=== PATIENT | female | born 1950 | race Caucasian/White ===

== ENCOUNTER 2019-05-02 10:00 | Outpatient (RCR) | payer MEDICARE, SELFPAY | END 2019-05-14 00:01 | LOC: GPO 10:00 | PROVIDERS: Family Provider Internal Medicine; Visit Provider Family Medicine | DX: M79.642 Pain in left hand (principal); M79.641 Pain in right hand; M79.605 Pain in left leg; M79.604 Pain in right leg; M54.9 Dorsalgia, unspecified | CPT/HCPCS: 97034 ×2; 97110 ×5; 97167; 97530 ×2; 97535; L3908 ==

== ENCOUNTER 2019-05-15 06:00 | Outpatient (RCR) | payer MEDICARE, SELFPAY | END 2019-06-14 23:59 | disposition home or self-care (01) | LOC: GPO 06:00 | PROVIDERS: Family Provider Internal Medicine; PCP Internal Medicine; Visit Provider Family Medicine | DX: M54.5 Low back pain (principal); M79.642 Pain in left hand; M79.641 Pain in right hand; M79.605 Pain in left leg; M79.604 Pain in right leg | CPT/HCPCS: 97032; 97034; 97110; 97124; 97140; 97162; 97530; 97535 ==

== ENCOUNTER 2019-05-20 12:38 | Outpatient (CLI) | payer MEDICARE, SELFPAY ==
--- NOTE | 2019-05-20 13:03 | XR_ITS ---
WS: [id number] Right shoulder, 3 views, 05/20/2019 Clinical Data: RIGHT SHOULDER PAIN Comparison: None. Findings: No fractures or dislocations are seen. The AC joint shows moderate osteoarthritis. The adjacent right clavicle, right scapula and ribs are normal. The soft tissues are unremarkable. XR/XR shoulder RT min 2V* [id number] Impression: Negative right shoulder.
== END 2019-05-20 12:39 | disposition home or self-care (01) ==
PROVIDERS: Family Provider Internal Medicine; PCP Internal Medicine; Referring Provider Family Medicine; Visit Provider Family Medicine
DX: M25.511 Pain in right shoulder (principal)
CPT/HCPCS: 73030

== ENCOUNTER → 2019-06-04 14:10 | Outpatient (BNVA) | payer MEDICARE, SELFPAY | PROVIDERS: Family Provider Internal Medicine; PCP Family Medicine; Referring Provider Family Medicine; Visit Provider Psychiatry & Neurology Neurology | DX: G56.03 Carpal tunnel syndrome, bilateral upper limbs (principal) | CPT/HCPCS: 95911 ==

== ENCOUNTER 2019-06-15 06:00 | Outpatient (RCR) | payer MEDICARE, SELFPAY | END 2019-07-13 23:59 | disposition home or self-care (01) | LOC: GPO 06:00 | PROVIDERS: Family Provider Internal Medicine; PCP Family Medicine; Referring Provider Family Medicine; Visit Provider Family Medicine | DX: M54.5 Low back pain (principal); M79.642 Pain in left hand; M79.641 Pain in right hand; M79.605 Pain in left leg; M79.604 Pain in right leg | CPT/HCPCS: 97032; 97034; 97110; 97124; 97140; 97164; 97530; 97535 ==

== ENCOUNTER 2019-07-01 12:41 | Outpatient (CLI) | payer MEDICARE, SELFPAY ==
--- NOTE | 2019-07-01 12:50 | MR_ITS ---
WS: [id number] MRI CERVICAL SPINE NONCONTRAST TECHNIQUE: Sagittal T1, T2 and STIR imaging. Axial T2, gradient, and fiesta imaging. CLINICAL INFORMATION: CHRONIC NECK PAIN COMPARISON: None. FINDINGS: Straightening with slight reversal normal cervical lordosis. Disc bulging worse at C5-C6 and C6-C7. C ord signal is normal. C2-C3: Normal. C3-C4: Minimal disc bulging with osteophytic ridging. Mild left greater than right foraminal narrowin g. Mild facet arthropathy. C4-C5: Tiny central disc protrusion with mild central canal stenosis. Mild bilateral foraminal narrow ing. C5-C6: Disc osteophyte complex with mild central canal stenosis and slight contact of the cervical co rd. Mild bilateral foraminal narrowing. Mild facet arthropathy. C6-C7: Disc osteophyte complex with endplate ridging. Small left pericentral disc osteophyte protrusi on. Mild central canal stenosis. Mild to moderate left and mild right bony foraminal narrowing. C7-T1: Disc osteophyte complex eccentric to the left with endplate ridging. Moderate left and mild ri ght bony foraminal narrowing. Spinal canal is patent. Tiny disc protrusions in the upper thoracic spine Visualized brain stem structures: Normal. Prevertebral soft tissues: Normal. MR/MR cervical spin wo con* [id number] IMPRESSION: 1. Straightening with slight reversal normal cervical lordosis. 2. Mild central canal stenosis C5-C6 and C6-C7 with small disc osteophyte prot rusions described above. 3. Multilevel mild to moderate bony foraminal narrowing worse at left C6-C7 an d left C7-T1.
== END 2019-07-01 12:42 | disposition home or self-care (01) ==
LOC: RADWPI 12:43
PROVIDERS: Family Provider Internal Medicine; PCP Family Medicine; Visit Provider Family Medicine
DX: G89.29 Other chronic pain (principal); M48.02 Spinal stenosis, cervical region; M48.03 Spinal stenosis, cervicothoracic region
CPT/HCPCS: 72141

== ENCOUNTER 2019-07-14 06:00 | Outpatient (RCR) | payer MEDICARE, SELFPAY | END 2019-08-13 23:59 | disposition home or self-care (01) | LOC: GPO 06:00 | PROVIDERS: Family Provider Internal Medicine; PCP Family Medicine; Referring Provider Family Medicine; Visit Provider Family Medicine | DX: M54.5 Low back pain (principal); M79.642 Pain in left hand; M79.641 Pain in right hand; M79.605 Pain in left leg; M79.604 Pain in right leg | CPT/HCPCS: 97110; 97112; 97140; 97530; G0283 ==

== ENCOUNTER 2019-08-14 06:00 | Outpatient (RCR) | payer MEDICARE, SELFPAY | END 2019-09-12 23:59 | disposition home or self-care (01) | LOC: GPO 06:00 | PROVIDERS: Family Provider Internal Medicine; PCP Family Medicine; Referring Provider Family Medicine; Visit Provider Family Medicine | DX: M79.642 Pain in left hand (principal); M79.641 Pain in right hand; M79.605 Pain in left leg; M79.604 Pain in right leg; M54.5 Low back pain | CPT/HCPCS: 97032; 97164; 97530 ==

== ENCOUNTER 2019-09-13 06:00 | Outpatient (RCR) | payer MEDICARE, SELFPAY | END 2019-10-13 23:59 | disposition home or self-care (01) | LOC: GPO 06:00 | PROVIDERS: PCP Family Medicine; Referring Provider Family Medicine; Visit Provider Family Medicine | DX: M54.5 Low back pain (principal); M79.642 Pain in left hand; M79.641 Pain in right hand; M79.605 Pain in left leg; M79.604 Pain in right leg; M13.811 Other specified arthritis, right shoulder; M13.812 Other specified arthritis, left shoulder | CPT/HCPCS: 97032; 97110; 97112; 97167; 97530; 97535 ==

== ENCOUNTER 2019-10-03 12:31 | Outpatient (CLI) | payer MEDICARE, SELFPAY ==
--- NOTE | 2019-10-03 12:41 | XRR_ITS ---
PROCEDURE INFORMATION: Exam: XR Lumbosacral Spine, 2 or 3 Views Exam date and time: 10/03/2019 1:12 PM Age: 68 years old Clinical indication: Chronic low back pain TECHNIQUE: Imaging protocol: XR of the lumbosacral spine, 2 or 3 views. COMPARISON: MRI Lumbar Spine w/o [id number] 11/02/2018 8:38 AM FINDINGS: Vertebrae: The lumbar vertebral bodies maintain height and alignment. The facets align normally. There is multilevel disc degeneration. Facet arthropathy mainly in the lower lumbar spine. No acute fracture. Soft tissues: No acute soft tissue abnormality. XR/XR lumbar spine 2-3V* [id number] IMPRESSION: Multilevel disc degeneration and facet arthropathy.
== END 2019-10-03 12:32 | disposition home or self-care (01) ==
LOC: RAD 12:34
PROVIDERS: PCP Family Medicine Geriatric Medicine; Visit Provider Family Medicine
DX: M54.5 Low back pain (principal); G89.29 Other chronic pain; M51.36 Other intervertebral disc degeneration, lumbar region; M47.816 Spondylosis without myelopathy or radiculopathy, lumbar region
CPT/HCPCS: 72100

== ENCOUNTER 2019-10-14 06:00 | Outpatient (RCR) | payer MEDICARE, MEDICAID, SELFPAY | END 2019-11-12 23:59 | disposition home or self-care (01) | LOC: GPO 06:00 | PROVIDERS: PCP Family Medicine Geriatric Medicine; Visit Provider Family Medicine | DX: M13.812 Other specified arthritis, left shoulder (principal); M13.811 Other specified arthritis, right shoulder | CPT/HCPCS: 97110 ==

== ENCOUNTER → 2019-12-09 10:08 | Outpatient (BNVA) | payer MEDICARE, MEDICAID, SELFPAY | PROVIDERS: PCP Family Medicine Geriatric Medicine; Visit Provider Internal Medicine Cardiovascular Disease | DX: Z01.812 Encounter for preprocedural laboratory examination (principal); Z20.89 Contact with and (suspected) exposure to other communicable diseases; R06.02 Shortness of breath; E66.01 Morbid (severe) obesity due to excess calories; I48.4 Atypical atrial flutter | CPT/HCPCS: 80048; 85025; 85610; 87635 ==

== ENCOUNTER 2019-12-10 09:02 | Outpatient (CLI) | payer MEDICARE, MEDICAID, SELFPAY ==
--- NOTE | 2019-12-10 09:09 | US_ITS ---
WS: [id number] ULTRASOUND ABDOMEN LIMITED CLINICAL INFORMATION: ABDOMINAL PAIN LEFT SIDE COMPARISON: None. FINDINGS: Spleen Splenomegaly: None. Craniocaudal length: 9.7 cm. Left kidney: Left kidney cyst measuring 2.1 x 1.9 x 1.6 cm Hydronephrosis: None. Size: 8.9 cm x 4.4 cm x 4.1 cm. Abdominal aorta and IVC Visualized portions are normal. Ascites: None. US/US abdomen limited [id number] IMPRESSION: 1. Normal spleen. 2. No hydronephrosis in the left kidney. 3. Left kidney cyst measuring 2.0 x 1.8 cm.
== END 2019-12-10 09:03 | disposition home or self-care (01) ==
LOC: RAD 09:06
PROVIDERS: PCP Family Medicine Geriatric Medicine; Visit Provider Family Medicine
DX: R10.9 Unspecified abdominal pain (principal); Q61.01 Congenital single renal cyst
CPT/HCPCS: 76705

== ENCOUNTER 2019-12-11 09:02 | Outpatient (CLI) | payer MEDICARE, MEDICAID, SELFPAY ==
--- NOTE | 2019-12-11 09:15 | MR_ITS ---
WS: [id number] MRI LUMBAR SPINE NONCONTRAST TECHNIQUE: Sagittal T1, T2 and STIR imaging. Axial T1 and T2 imaging. CLINICAL INFORMATION: CHRONIC LOW BACK PAIN COMPARISON: MRI 6 FINDINGS: Mild lumbar curve. No acute compression. No high-grade central canal stenosis. L1-L2: Normal. L2-L3: Mild disc bulging with narrowing of the left subarticular recess. Slight impingement on the tr aversing left L3 nerve root. Left foraminal protrusion impinges the exiting left L2 nerve root with m oderate left foraminal narrowing. Mild facet arthropathy. Right foramen is patent. L3-L4: Mild disc bulge with endplate ridging. Slight narrowing of the left subarticular recess. Small left foraminal protrusion impinges the exiting L3 nerve root with moderate left foraminal narrowing. Mild facet arthropathy. L4-L5: Mild disc bulging and osteophytic ridging. Left eccentric endplate ridging with mild left fora markus narrowing. Slight contact far exiting left L4 nerve root. Right foramen is patent. Moderate fa cet arthropathy. L5-S1: Slight anterolisthesis L5 on S1. No significant disc bulging. Mild facet arthropathy. Spinal c anal and foramen are patent. Visualized pelvic bony structures: Normal. Paravertebral soft tissues: Normal. MR/MR lumbar spine wo con* [id number] IMPRESSION: 1. Mild lumbar curve. No acute compression. No high-grade central canal stenos is. 2. Left foraminal protrusion L2-3 impinges the exiting left L2 nerve root with moderate left foraminal narrowing. This is slightly progressed from previous. 3. Small left foraminal protrusion L3-4 with mild to moderate left foraminal n arrowing and contact of the exiting left L3 nerve root. 4. Mild left L4-5 foraminal narrowing. Small left foraminal protrusion. 5. Mild to moderate facet arthropathy L3-L5.
== END 2019-12-11 09:03 | disposition home or self-care (01) ==
LOC: RADSHAW 09:12
PROVIDERS: PCP Family Medicine Geriatric Medicine; Visit Provider Family Medicine
DX: G89.29 Other chronic pain (principal); M47.816 Spondylosis without myelopathy or radiculopathy, lumbar region; M51.26 Other intervertebral disc displacement, lumbar region
CPT/HCPCS: 72148

== ENCOUNTER → 2019-12-13 11:34 | Outpatient (BNVA) | payer MEDICARE, SELFPAY | PROVIDERS: PCP Family Medicine Geriatric Medicine; Visit Provider Internal Medicine | DX: Z20.89 Contact with and (suspected) exposure to other communicable diseases (principal) | CPT/HCPCS: 87635 ==

== ENCOUNTER 2019-12-25 06:16 | Day surgery (SDC) | payer MEDICARE, MEDICAID, SELFPAY ==
--- NOTE | 2019-12-24 11:09 | SUR.PREOP ---
Labs from 12/[address] Brito. He states it is okay to use the pre op blood work from 12/09/19 for tomorrows procedure.
[2019-12-24 13:34] VITALS: BMI 47.8
[2019-12-25] VITALS (64 sets, daily range): BP systolic 80–197; BP diastolic 34–107; PULSE 81–106; RESP 13–29; TEMP 36.2–36.7; O2SAT 92–100
--- NOTE | 2019-12-25 06:00 | XACV_ITS ---
Exam Room: [facility] Ht: 140 cm Wt: 93 kg BSA: 1.97 m2 Gender: Female : 1950 Any Known Allergies: Shellfish Exam Priority: Routine Procedure(s): Procedure Description: Diagnostic procedure Procedure Description: PCI procedure Procedure Description: Left Heart Catheterization Procedure Description: Right Heart Catheterization Procedure Description: O2 saturation Procedure Description: Drug Eluting Coronary Stent Procedure Description: PTCA Procedure Description: Miscellaneous Procedure Description: ACT Procedure Description: Coronary Angiography Diagnostic Cath Status: Elective Diagnostic Findings LM has 0% stenosis. CX has 0% stenosis. Mid Left Anterior Descending Coronary Artery: Severe 90% stenosis, CYNTHIA: 3 flow. Proximal Right Coronary Artery: Severe 90% stenosis, CYNTHIA: 3 flow. Coronary angiography shows co-dominance. Interventional Findings Mid Left Anterior Descending Coronary Artery: 90% stenosis treated with AB MINI TREK 2.00X12 RX BALLOON, TARAN Rivas ROOPA 2.75X22 JAE, and MDT CHUY EUPHORA RX [id number] BALLOON. 0% residual stenosis, CYNTHIA: 3 flow. Proximal Right Coronary Artery: 90% stenosis treated with AB MINI TREK 2.00X12 RX BALLOON and MDT R ROOPA 2.5X18 JAE. 0% residual stenosis, CYNTHIA: 3 flow. Conclusions Indication for left and right heart cath: Unexplained shortness of breath with worsening of chest pain despite of optimization of medicine for the past 1 year. Patient had stress test few months ago which was negative. She underwent pulmonary function tests and was ruled out for extracardiac causes. Since she did not get better and constantly deteriorating we decided to proceed with left and right heart cath. Right heart cathRA 13mmHgRV 41/55 mmHgPA mean 27 mmHgPulmonary capillary wedge pressure 23 mm Hg Cardiac index 2 L/min/m2No significant stepup noted between RV and PA . There is severe coronary artery disease with two vessel disease. Mid Left Anterior Descending Coronary Artery was treated with two Balloon and Drug Eluting Stent. Proximal Right Coronary Artery was treated with Balloon and Drug Eluting Stent. Recommendations 1-Return to inpatient for close monitoring and routine cath care 2-Risk factor modification for secondary prevention 3-Statin and aspirin 81 mg life--long, if tolerated 4-Patient was pre-loaded with 300 mg of Plavix, continue Plavix 75mg p.o. daily for at least one year. We will assess at the end of one year again to continue if further or not 5-Continue optimal medical management, continue Plavix and anticoagulation for 6-month. We will reassess for switching her from Plavix to aspirin then. 6-Follow up with Dr. Brito in four weeks and your primary care in 10 days . Interventional RX Recommendation: PCI w/o planned CABG Diagnostic RX Recommendation: PCI w/o planned CABG Pressures Phase:Rest AO : 112 mmHg / 73 mmHg ( 91 mmHg ) @ 2:58:00 AM 93 mmHg / 64 mmHg ( 78 mmHg ) @ 3:01:00 AM 102 mmHg / 60 mmHg ( 80 mmHg ) @ 3:01:00 AM 107 mmHg / 57 mmHg ( 77 mmHg ) @ 3:15:00 AM 108 mmHg / 63 mmHg ( 83 mmHg ) @ 3:34:00 AM LV : 104 mmHg / 23 mmHg / @ 3:00:00 AM RV : 41 mmHg / 5 mmHg / @ 2:42:00 AM PA : 47 mmHg / 24 mmHg ( 32 mmHg ) @ 2:40:00 AM 40 mmHg / 15 mmHg ( 27 mmHg ) @ 2:41:00 AM RA : a wave = v wave = mean = 13 mmHg @ 2:44:00 AM O2 Content Phase:Rest PA : O2 Content O2: 46.3 % @ 2:58:00 AM Saturations Phase:Rest AO : 98 % @ 3:15:00 AM RA : 55 % @ 3:01:00 AM RV : 44 % @ 3:01:00 AM PA : 46 % @ 2:58:00 AM Cardiac Output Phase:Rest Eddie : 3 l/min @ 2:58:00 AM Eddie Cardiac Index: 2 L/min/m2 @ 2:58:00 AM Clinical Evaluation EBL: 5mL-10mL Procedural Details Procedure Consent Obtained. Pre-Procedure Time Out. Identified patient by full name and date of as verbalized by the patient/guarantor. Does the consent match the physician's order: Yes. Accurate & Complete Informed Consent: Yes. Inpatient/Outpatient History & Physical on Chart: Yes. If H&P is completed, is and addenduem needed: Yes; If yes, is the addendum complete: N/A. Visualize and Verify Site with Patient/Guarantor: N/A. Relevant Radiology Images available: Yes. Pre-op teaching completed and patient verbalized understanding. The risks, benefits, and alternatives of sedation and/or procedure were discussed by physician. The patient agrees to continue. Procedure started. [facility] Clinical Fraility Score: 4: Vulnerable. Application Development Specialist Indications: Other. Chest Pain Symptom Assessment: Non-anginal Chest Pain. Correct patient, site and procedure confirmed by cath team. PERRLA. Strong, equal hand chief medical technologist bilaterally. Lungs clear x 5 lobes. IV Site on Arrival: 20 gauge in the right anticubital. IV Fluids: 0.9% NaCl at KVO. 0 mL infused prior to mechanical laboratory technician. Pre Procedural Pulses: bilateral dorsalis pedis was 2+. Pre Procedural Pulses: bilateral posterior tibial was 1+. Pre Procedural Pulses: bilateral radial was 3+. Oxygen started at 2liters/min via nasal canula. right groin was prepped with chloroprep then draped in the usual sterile fashion. right radial was prepped with chloroprep then draped in the usual sterile fashion. Physician notified. Baseline sample Acquired. HR: 82 BPM. Patient's family unavailable. Physician arrived. Dr. Brito aware of the patients shellfish allergy. Physician scrubbed in. Immediate Pre-Procedure Time Out. Correct Patient: Yes; Correct Procedure: Yes; Correct Site: Yes; Correct Patient Position: Yes; Correct Supplies: Yes; Dried Flammable Prep: Yes; Blood Products Available: N/A;. Lidocaine 1% infiltrated to the right brachial. sheath wire inserted through the IV catheter. IV catheter removed OTW. [place]-Marta MON catheter inserted. Oximetry samples were obtained. Normal venous range: 60-85%. Normal arterial range: 95-100%. Pressure measurements obtained. [place]-Marta out. Lidocaine 1% infiltrated to the right radial. Arterial access obtained. A 5 [place] TIG catheter in over wire. wire out. hand injection performed through the catheter. glidewire inserted through the catheter. EDP Sample taken: LV 104/23,15; HR: 95 BPM; SpO2: 94%. Pullback taken: LV Off; AO Off; Mean: , Peak to Peak: , SEP: ; HR: 117 BPM; SpO2: 94%. Multiple views taken of right coronary artery. Catheter redirected to the LCA. Multiple views taken of left coronary artery. Catheter removed over the exchange wire. Lidocaine 1% infiltrated to the right groin. Arterial access obtained with micropuncture set. 6 citizen [place] JR 4 SH guide catheter was inserted over the wire. [place] guidewire was advanced through the guide catheter to lesion in the prox RCA. Inflation number : 1 A AB MINI TREK 2.00X12 RX BALLOON was prepped and advanced across the Prox RCA , then inflated to 8 TAMEKA for 0:14 seconds. Inflation number: 2 The AB MINI TREK 2.00X12 RX BALLOON was reinflated across the Prox RCA, to 10 TAMEKA for 0:11 seconds. Balloon out. Inflation Number : 3 A TARAN Rivas ROOPA 2.5X18 JAE -Lot Number# [id number] exp date 03/07/2021 was prepped and advanced across the Prox RCA. The stent was deployed at 12 TAMEKA for 0:19 seconds. Stent balloon out over wire. Results checked. Wire out. Guide catheter out. 6 [place] JL 3 guide catheter was inserted over the wire. Inventory is CRD 6FR JL 3 GUIDE. [place] guidewire was advanced through the guide catheter to lesion in the mid LAD. MDT R ROOPA 2.75x22 JAE inserted. Unable to cross lesion. Intact stent removed. Inflation number: 1 The AB MINI TREK 2.00X12 RX BALLOON was reinflated across the Mid LAD, to 14 TAMEKA for 0:16 seconds. Inflation number: 2 The AB MINI TREK 2.00X12 RX BALLOON was reinflated across the Mid LAD, to 14 TAMEKA for 0:11 seconds. Inflation Number : 3 A MDT R ROOPA 2.75X22 JAE -Lot Number# [id number] exp date 04/01/2021 was prepped and advanced across the Mid LAD. The stent was deployed at 12 TAMEKA for 0:20 seconds. Inflation number : 4 A MDT NC EUPHORA RX 3.29Q05QO BALLOON was prepped and advanced across the Mid LAD , then inflated to 12 TAMEKA for 0:12 seconds. Inflation number: 5 The MDT NC EUPHORA RX 3.21C02XS BALLOON was reinflated across the Mid LAD, to 14 TAMEKA for 0:17 seconds. Inflation number: 6 The MDT NC EUPHORA RX 3.54H28YH BALLOON was reinflated across the Mid LAD, to 14 TAMEKA for 0:17 seconds. ACT drawn. Results 377 seconds. Therapeutic limits - pre-heparin administration 90-150 seconds and monitoring heparin during a vascular procedure >250 seconds. Physician scrubbed out. A Manual Compression was successful obtaining hemostatsis at the Right Brachial Vein insertion site. A TR Band was successful obtaining hemostatsis at the Right Radial artery insertion site. A Suture was successful obtaining hemostatsis at the Right Femoral artery insertion site. TR band placed. Hemostasis obtained. Sheath(s) sutured into position with 2-0 silk and sterile 4x4's and Op-site applied over the site. No oozing or signs and symptoms of hematoma noted. Arterial sheath flushed and connected to tranducer and pressure bag with heparinized saline. Post Procedure: Pulses reassessed and unchanged. PERRLA. Strong, equal hand chief medical technologist bilaterally. No VTE prophylaxis required. Medication's Wasted: Lidocaine 1% = 10 mL. Medication's Wasted: Nitro = 49.2 mg. Total IV fluids: 100 mL. Contrast type used: Visipaque 320 mgI/mL, 500 mL bottle. PCI Indication: CAD (without ischemic symptoms). Complications: none. Estimated blood loss: 5mL-10mL. Procedure completed. Patient transferred by bed to 1st floor. Site: Right Brachial Vein Sheath Size: 6 Fr Hemostasis Method: Manual Compression Hemostasis Success: Successful Site: Right Radial artery Sheath Size: 6 Fr Hemostasis Method: TR Band Hemostasis Success: Successful Site: Right Femoral artery Sheath Size: 6 Fr Hemostasis Method: Suture Hemostasis Success: Successful Procedure Medications Start: 7:27 AM Stop: 7:27 AM Medication: Versed Amount: 2 mg Route: I.V. Start: 7:37 AM Stop: 7:37 AM Medication: Fentanyl Amount: 25 mcg Route: I.V. Start: 7:43 AM Stop: 7:43 AM Medication: Fentanyl Amount: 25 mcg Route: I.V. Start: 7:51 AM Stop: 7:51 AM Medication: Nitrogylcerin Amount: 200 mcg Route: I.A. Start: 7:58 AM Stop: 7:58 AM Medication: Heparin Amount: 5000 units Route: I.V. Start: 8:03 AM Stop: 8:03 AM Medication: Fentanyl Amount: 25 mcg Route: I.V. Start: 8:11 AM Stop: 8:11 AM Medication: Solu-Medrol (methylprednisolone) Amount: 125 mg Route: I.V. Start: 8:15 AM Stop: 8:15 AM Medication: Aggrastat 12.5 mg/250 mL Amount: 47 ml Route: I.V. bolus Start: 8:15 AM Stop: 8:15 AM Medication: Aggrastat 12.5 mg/250 mL Amount: 16.9 ml/hr Route: I.V. drip Start: 8:17 AM Stop: 8:17 AM Medication: Versed Amount: 1 mg Route: I.V. Start: 8:17 AM Stop: 8:17 AM Medication: Heparin Amount: 4000 units Route: I.V. Start: 8:26 AM Stop: 8:26 AM Medication: Versed Amount: 1 mg Route: I.V. Start: 8:27 AM Stop: 8:27 AM Medication: Nitrogylcerin Amount: 200 mcg Route: I.C. Start: 8:30 AM Stop: 8:30 AM Medication: Nitrogylcerin Amount: 200 mcg Route: I.C. Start: 8:36 AM Stop: 8:36 AM Medication: Fentanyl Amount: 25 mcg Route: I.V. Start: 8:37 AM Stop: 8:37 AM Medication: Nitrogylcerin Amount: 200 mcg Route: I.C. Start: 8:42 AM Stop: 8:42 AM Medication: Versed Amount: 1 mg Route: I.V. Start: 8:46 AM Stop: 8:46 AM Medication: Nitrogylcerin Amount: 200 mcg Route: I.C. I, the attending physician, have reviewed and verified all procedure medications. Yes, all medications given per verbal order History/Risk Factors Hypertension: Yes Dyslipidemia: No Diabetic Therapy: Diet Peripheral Arterial Disease (PAD): No Myocardial Infarction (SD): No Obesity: Yes Renal Disease: No Tobacco Use: Never Prior Interventions PCI: No CABG: No Valve Surgery: No Report Signatures Finalized by:Kasandra Brito MD on 01/08/2020 11:49:07 AM
[2019-12-25] MEDS: diphenhydrAMINE 50 mg Capsule PO (06:27)
--- NOTE | 2019-12-25 07:25 | W.PM.OPSUD ---
Surgery/Procedure H&P Update DATE OF PROCEDURE: December 25, 2019 DATE H&P PERFORMED: 11/29/19 H&P UPDATE INFORMATION: I have reviewed H&P completed within last 30 days, I have examined patient prior to procedure and No changes to prior documentation PREOP DIAGNOSIS: unexplained shortness of breath , atypical chest pain PLANNED PROCEDURE: Operation Date: 12/25/19 07:00 Proposed Procedures p Cardiac Catheterization left and right(Bilateral) - Kasandra Brito MD PATIENT REASSESSED PRIOR TO SEDATION, WITH NO CHANGE NOTED: Yes PHYSICAL EXAM: alert, oriented x 3 and clear to auscultation bilaterally AIRWAY EVAL/ANESTHESIA PLAN: ASA II
--- NOTE | 2019-12-25 09:20 | PC.NURSE ---
Received patient from carpenter/labor to room 101. Patient has pressure dressing to right antecubital space. TR band to right wrist. Right groin sheath with pressure bag attached to right groin. Patient is arousable but still sedated. Able to answer her name and birthdate.
--- NOTE | 2019-12-25 10:41 | PC.CHAP ---
Pastoral Care Encounter/Spiritual Assessment Type of Contact [] Declined weigher operator visit [] Patient/Family/Request visit [] Outpatient visit [] Follow-up visit [] Physician referral [] Code/Alert [x] Routine visit [] Staff referral [] Actively dying [] Patient sleeping [] Family support [] [] Out of room [] Palliative care [] [] Receiving care in room [] Pre-surgical visit [] Trauma [] Long length of stay [] ICU visit [] Other: Relational/Emotional Strength [] Patient feels connected with others/family/visitors/staff [] Distress [] Loneliness/isolation [] Abandonment Spirituality of Patient [] Person of Kelsey [] Attends Amish of their [place] [] Believes in Prayer [] Reads Bible or Orthodoxy materials [] There are Spiritual issues to be addressed Turret Lathe Tender Interventions [x] Prayer [x] Active listening [x] Non-anxious presence [x] Spiritual/emotional support [] Crisis/trauma care [] Spiritual counseling [] Bereavement support [] Provided bereavement packet [] Provided Bible/devotional materials [] Provided toy/stuffed animal, coloring book to patient or family member [] Provided Communion [] Anointing/[place] [] Salvation [x] Completed spiritual assessment [] Other: Impact on Illness or Injury [] Angry [] Fearful [] Anxious [] Often cries [] Exhaustion [] Unable to work [] Unable to attend tenriism [] Unable to walk/stand [] Unable to read [] Unable to drive [] Unable to eat/drink [] Unable to sleep [] Unable to be with family [] Patient intubated [] Other: Summary Patient just returned from surgery. some discomfort. Time spent with patient 5 min
[2019-12-25] MEDS: clopidogrel 300 mg Tablet 600 MG PO (11:12)
[2019-12-25] MEDS: dilTIAZem 60 mg Tablet PO ×2 (11:12→18:04)
[2019-12-25] MEDS: metoprolol succinate ER (24 HR) 25 mg Tablet 37.5 MG PO ×2 (11:13→18:03)
[2019-12-25] MEDS: isosorbide mononitrate ER 30 mg Tablet 15 MG PO ×2 (11:13→18:04)
[2019-12-25] MEDS: pantoprazole DR 40 mg Tablet PO (11:13)
[2019-12-25 11:39] LABS: Glucose Point of Care 133 mg/dL (70-110)
--- NOTE | 2019-12-25 12:16 | USCV_ITS ---
Waleska Celis Age: 69 Gender: F : 1950 Exam Date: 12/25/2019 14:04 Ordering Phys: Kasandra Brito MD ([email or web address]) Technologist: Ajit Tay [place] [facility] [place] BP: 109 / 68 HR: 91 Rhythm: Sinus Technical Quality: Good MEASUREMENTS (Male / Female) Normal Values 2D ECHO LV Diastolic Diameter PLAX 3.1 cm 4.2 - 5.9 / 3.9 - 5.3 cm LV Systolic Diameter PLAX 1.9 cm IVS Diastolic Thickness 0.9 cm 0.6 - 1.0 / 0.6 - 0.9 cm IVS Systolic Thickness 1.1 cm LVPW Diastolic Thickness 0.9 cm 0.6 - 1.0 / 0.6 - 0.9 cm LVPW Systolic Thickness 1.0 cm LVOT Diameter 1.7 cm LV Ejection Fraction 2D Teich 71.6 % LV Ejection Fraction MOD 2C 53.5 % LV Ejection Fraction 2C AL 55.4 % LA Diameter 3.1 cm LA Width 3.6 cm LA Height 4.8 cm RA Width 2.7 cm RA Height 3.7 cm Aorta at Sinotubular Diameter 0.8 cm M-MODE LV Diastolic Diameter MM 4.0 cm 4.2 - 5.9 / 3.9 - 5.3 cm LV Systolic Diameter MM 2.7 cm LV Ejection Fraction MM Teich 61.0 % IVS Diastolic Thickness MM 0.8 cm 0.6 - 1.0 / 0.6 - 0.9 cm IVS Systolic Thickness MM 1.1 cm LVPW Diastolic Thickness MM 1.1 cm 0.6 - 1.0 / 0.6 - 0.9 cm LVPW Systolic Thickness MM 1.3 cm RV Diastolic Diameter MM 1.3 cm Aortic Annulus Diameter 2.5 cm LA Ao Ratio MM 1.2 MV E Point Septal Separation 0.9 cm DOPPLER AV Peak Velocity 222.0 cm/s LVOT Peak Velocity 101.0 cm/s AV Area Cont Eq vti 0.9 cm squared AV Area Cont Eq pk 1.1 cm squared MV Area PHT 5.0 cm squared Mitral E to A Ratio 0.9 MV E' Velocity 10.0 cm/s Mitral E to MV E' Ratio 12.0 Mitral E to LV E' Lateral Ratio 9.2 Mitral E to LV E' Septal Ratio 17.1 TR Peak Velocity 202.0 cm/s TR Peak Gradient 16.4 mmHg TV Peak E Velocity 98.0 cm/s Right Atrial Pressure 3.0 mmHg Pulmonary Artery Systolic Pressu 19.3 mmHg PV Peak Velocity 130.0 cm/s FINDINGS Left Ventricle Normal left ventricular cavity size. Normal left ventricular systolic function. No regional wall motion abnormalities.left ventricular ejection fraction is estimated at 61 %. Grade I/IV diastolic dysfunction (abnormal relaxation filling pattern), normal to mildly elevated filling pressures. Right Ventricle The right ventricle is normal in size and function. Right Atrium The right atrium is normal in size. Left Atrium Moderately increased left atrial size. Mitral Valve Structurally normal mitral valve without significant stenosis or prolapse. There is no mitral regurgitation. Aortic Valve Moderate aortic valve calcification. No significant aortic valve stenosis noted perhaps aortic valve leaflet restriction, were not able to see the valve clearly trace valvular regurgitation. Tricuspid Valve Structurally normal tricuspid valve without significant stenosis or regurgitation. Pulmonary artery systolic pressure is normal. Pulmonic Valve Structurally normal pulmonic valve without significant stenosis. There is no pulmonic regurgitation. Pericardium Normal pericardium without effusion. Aorta Normal ascending aorta dimension. CONCLUSIONS 1-Normal left ventricular cavity size. Normal left ventricular systolic function. No regional wall motion abnormalities.left ventricular ejection fraction is estimated at 61 %. Grade I/IV diastolic dysfunction (abnormal relaxation filling pattern), normal to mildly elevated filling pressures. 2-Moderate aortic valve calcification. No significant aortic valve stenosis noted perhaps aortic valve leaflet restriction, were not able to see the valve clearly trace valvular regurgitation. 3-Moderately increased left atrial size. 4-Pulmonary artery systolic pressure is within normal limits. 5-When compared to the prior echocardiogram dated 09/08/2017 there appeared to be mild aortic valve leaflet restriction otherwise no significant change. Kasandra Brito MD (Electronically Signed) Final Date: 27 December 2019 17:37 S
--- NOTE | 2019-12-25 13:15 | PC.NURSE ---
Aggrastat off. IV NS liter bag complete.
--- NOTE | 2019-12-25 14:43 | PC.NURSE ---
At 1400 3ml of air removed from TR band. At 1415 3ml of air removed from TR band. No evidence of bleeding from radial puncture site. Patient's hand is warmer and patient reports increeased comfort. At 1445 5 ml of air removed from TR ban.
[2019-12-25 15:44] LABS: Partial Thromboplastin Time 26.1 SECONDS (23.9-36.7)
[2019-12-25] MEDS: fentaNYL 50 mcg/mL INJ 2mL IVP (16:28)
[2019-12-25 17:20] LABS: Glucose Point of Care 264 mg/dL (70-110)
--- NOTE | 2019-12-25 17:28 | PC.NURSE ---
At 1640 right femoral sheath removed. Patient was premedicated with 50mcg fentanyl and procedure explained to patient and her . Femoral artery pulse identified and immediate hand pressure was applied to femoral artery just proximal to puncture site. Pressure held x 20 minutes while monitoring circulation to right foot by pulse oximetry. Micheline Lange RN also present to help monitor patient's vital signs and peripheral circulation. No hematoma formation in right groin. Gauze dressing applied to sheath puncture site.
--- NOTE | 2019-12-25 19:36 | PC.NURSE ---
BEDSIDE REPORT RECEIVED BY OFF GOING NURSE. CATH SITES WERE CHECKED TOGETHER. THERE IS IN HEMATOMA ON ANY OF THE CATH SITES. RIGHT RADIAL AND DORSALIS PEDIS HAVE A STRONG PULSE 3+. DRESSING TO THE RIGHT BRACHIAL, RADIAL, GROIN ARE C/D/I. PT DENIES PAIN AT THIS TIME. PT STATES THAT THEY DO WIGGLE ALOT. WILL CONTINUE TO MONITOR.
[2019-12-25 20:07] LABS: Glucose Point of Care 239 mg/dL (70-110)
[2019-12-26] VITALS (17 sets, daily range): BP systolic 79–139; BP diastolic 41–85; PULSE 75–98; RESP 7–28; TEMP 36.4–36.8; O2SAT 96
--- NOTE | 2019-12-26 04:10 | PC.NURSE ---
PT IS RESTING IN BED. PT DENIES PAIN OTHER THEN SOME TENDERNESS AROUND PUNCTURE SITE. PT AMBULATED 50FT. PT STATES THAT HER BREATHING HAS IMPROVED SIGNIFICANTLY. PRESSURE DRESSING TO RIGHT GROIN AND RADIAL ARE C/D/I. WILL CONTINUE TO MONITOR.
[2019-12-26 04:15] LABS: Basophils % 0.1 %; Hematocrit 24.9 % (37.0-47.0); Hemoglobin 6.9 g/dL (11.5-15.3); Lymphocytes # 1.2 10^3/uL (0.8-4.8); Lymphocytes % 8.5 %; Mean Corpuscular HGB Conc 27.7 g/dL (30.0-36.0); Mean Corpuscular Hemoglobin 19.7 pg (28.0-34.0); Mean Corpuscular Volume 70.9 fL (81-99); Mean Platelet Volume 10.9 fL (7.4-10.4); Monocytes # 0.2 10^3/uL (0.2-0.9); Monocytes % 1.4 %; Neutrophils # 12.41 10^3/uL (1.8-7.7); Neutrophils % 89.2 %; Nucleated Red Blood Cells % 0 %; Platelet Count 369 10^3/cmm (130-400); Red Blood Count 3.51 10^6/uL (4.1-5.3); White Blood Count 13.9 10^3/uL (4.0-10.0)
[2019-12-26 04:40] LABS: Blood Urea Nitrogen 17 mg/dL (8-23); Calcium 7.9 mg/dL (8.5-10.5); Carbon Dioxide 24 mmol/L (22-29); Chloride 104 mmol/L (98-107); Glomerular Filtration Rate 62.5 mL/min (90-130); Glucose 186 mg/dL (65-115); Osmolality Calculated 285 mOsm/kg (285-295); Sodium 137 mmol/L (136-145)
[2019-12-26 06:18] LABS: Glucose Point of Care 175 mg/dL (70-110)
[2019-12-26] MEDS: isosorbide mononitrate ER 30 mg Tablet 15 MG PO (08:37)
[2019-12-26] MEDS: pantoprazole DR 40 mg Tablet PO (08:37)
[2019-12-26] MEDS: metoprolol succinate ER (24 HR) 25 mg Tablet 37.5 MG PO (08:37)
[2019-12-26] MEDS: dilTIAZem 60 mg Tablet PO (08:37)
[2019-12-26] MEDS: acetaminophen 325 mg Tablet 650 MG PO (09:54)
--- NOTE | 2019-12-26 09:54 | ECG_ITS ---
[facility] Test Date: 2019-12-26 Pat Name: Waleska Celis Department: Room: 101 Gender: Female Striker Off: : 1950 Requested By: Kasandra Brito Order Number: [id number] Yu MD: Ludy Thomas M.D. Measurements Intervals [place] Rate: 82 P: 49 TX: 178 QRS: 7 QRSD: 108 T: -22 QT: 358 QTc: 420 Interpretive Statements SINUS RHYTHM MODERATE ST DEPRESSION [0.05+ mV ST DEPRESSION] No previous ECG available for comparison Electronically Signed On 12-26-2019 20:44:38 CDT by Ludy Thomas M.D. [id number]
[2019-12-26 10:58] LABS: Hematocrit 26.3 % (37.0-47.0); Hemoglobin 7.3 g/dL (11.5-15.3)
[2019-12-26 11:17] LABS: Glucose Point of Care 250 mg/dL (70-110)
--- NOTE | 2019-12-26 11:39 | P.DS_ITS ---
Discharge Providers Date of Discharge: December 26, 2019 Attending Provider at Discharge: Kasandra Brito MD Primary Care Provider: Juan Romero Reason for Visit 2 Reason for Visit: left and right heart cath Hospital Course Discharge Summary: 69-year-old female past medical history significant for unexplained shortness of breath, recurrent and worsening of chest pain paroxysmal atrial flutter obesity diabetes mellitus chronic anemia musculoskelet al pain taking anticoagulant and ibuprofen underwent left heart cath for worsening of shortness of breath. She was found to have significant proximal RCA and mid LAD significant stenosis. Both lesions were treated with drug- eluting stents, postop care remains uncomplicated however hemoglobin has dropped from 9-7, there is no obvious GI bleed. We will send blood for Hemoccult. Patient is on pantoprazole. I will discontinue apixaban and ibuprofen. I will continue Plavix and aspirin. We will see patient back in 7 days in our clinic. Patient has been advised in case of worsening of shortness of breath fatigue weakness and witnessing bright red blood per rectum or dark color stool she should let us know. She has also been started on iron pills. Physical Exam Narrative: EXAM NARRATIVE: GENERAL: Patient is alert, awake and oriented x3. NECK: No jugular vein distension. HEENT: No cyanosis. No icterus. No pallor. HEART: Regular S1 and S2. No murmur, rub or gallop. LUNGS: Clear to auscultate bilaterally. ABDOMEN: Soft, nontender and nondistended. Positive bowel sounds. No guarding, rebound or tenderness. CENTRAL NERVOUS SYSTEM: Grossly nonfocal. EXTREMITIES: Lower extremities without edema bilaterally. Right groin wound looks good mild bruising no hematoma. Discharge Data Data Completed and Pending: Pending at discharge Category Date Time Status RN CLINICAL TRIALS request for service Routin e Exams 12/25/19 06:00 Taken Occult Blood Stoo l [Immunochemical Fecal OCB] Routine Lab 12/26/19 11:11 Uncollected CV echo complete* [id number] Routine Ultrasound 12/25/19 12:16 Taken Labs from last 24 hours 12/26/19 12/26/19 12/26/19 11:06 10:28 06:14 WBC RBC Hgb 7.3 L Hct 26.3 L MCV MCH MCHC RDW Plt Count MPV Neut % (Auto) Lymph % (Auto) [place] % (Auto) Eos % (Auto) Baso % (Auto) Neut # (Auto) Lymph # (Auto) [place] # (Auto) Eos # (Auto) Baso # (Auto) Nucleated RBC % (a uto) Nucleated RBCs # APTT Sodium Potassium Chloride Carbon Dioxide Anion Gap BUN Creatinine GFR Calculation Glucose POC Glucose 250 175 Calculated Osmolal ity Calcium 12/26/19 12/26/19 12/25/19 04:01 04:01 19:33 WBC 13.9 H RBC 3.51 L Hgb 6.9 L Hct 24.9 L MCV 70.9 L MCH 19.7 L MCHC 27.7 L RDW 20.0 H Plt Count 369 MPV 10.9 H Neut % (Auto) 89.2 Lymph % (Auto) 8.5 [place] % (Auto) 1.4 Eos % (Auto) 0.0 Baso % (Auto) 0.1 Neut # (Auto) 12.41 H Lymph # (Auto) 1.2 [place] # (Auto) 0.2 Eos # (Auto) 0.0 Baso # (Auto) 0.0 Nucleated RBC % (a uto) 0 Nucleated RBCs # 0.0 APTT Sodium 137 Potassium 4.0 Chloride 104 Carbon Dioxide 24 Anion Gap 13.0 BUN 17 Creatinine 0.9 GFR Calculation 62.5 L Glucose 186 H POC Glucose 239 Calculated Osmolal ity 285 Calcium 7.9 L 12/25/19 12/25/19 12/25/19 17:15 15:10 11:35 WBC RBC Hgb Hct MCV MCH MCHC RDW Plt Count MPV Neut % (Auto) Lymph % (Auto) [place] % (Auto) Eos % (Auto) Baso % (Auto) Neut # (Auto) Lymph # (Auto) [place] # (Auto) Eos # (Auto) Baso # (Auto) Nucleated RBC % (a uto) Nucleated RBCs # APTT 26.1 Sodium Potassium Chloride Carbon Dioxide Anion Gap BUN Creatinine GFR Calculation Glucose POC Glucose 264 133 Calculated Osmolal ity Calcium Vitals: Last Vital Signs Temp 98.3 F 12/26/19 07:36 Pulse 89 12/26/19 07:36 Resp 16 12/26/19 07:36 BP 139/85 12/26/19 07:36 Pulse Ox 96 12/26/19 07:36 Discharge Plan Discharge Patient Disposition: Home Condition: Stable Prescriptions: New aspirin [Adult Aspirin Regimen] 81 mg tablet,delayed release (DR/EC) 81 mg PO DAILY Qty: 90 RF: 3 clopidogrel 75 mg tablet 75 mg PO DAILY Qty: 90 RF: 4 ferrous sulfate 324 mg (65 mg iron) tablet,delayed release (DR/EC) 324 mg PO DAILY Qty: 30 RF: 4 Continued metoprolol succinate 25 mg tablet extended release 24 hr 37.5 mg PO BID RF: 0 isosorbide mononitrate 30 mg tablet extended release 24 hr 15 mg PO BID Qty: 30 RF: 5 furosemide [Lasix] 40 mg tablet 40 mg PO QAM PRN (Reason: Edema) RF: 0 metformin 500 mg tablet 500 mg PO BID RF: 0 diltiazem HCl [Cardizem] 60 mg tablet 60 mg PO BID Qty: 180 RF: 3 pantoprazole 40 mg tablet,delayed release (DR/EC) 40 mg PO DAILY RF: 0 Discontinued ibuprofen 800 mg tablet 800 mg PO TID PRN (Reason: Pain) RF: 0 Eliquis 5 mg tablet 5 mg PO BID Qty: 180 RF: 3 Discharge Orders: Discharge Order (Routine); Ordered 12/26/19 Ordered By: Kasandra Brito Referrals: Kasandra Brito MD [Physician] - Juan Romero [Primary Care Provider] - Discharge Diet: Cardiac Discharge Activity: Increase activity as tolerated Patient Instructions: Left Heart Catheterization (DC), Right Heart Catheterization (DC), Coronary Angioplasty (DC) Activity Restrictions/Additional Instructions: Please perform stool for occult blood as an outpatient. Follow-up with Omaira Arzola cardiology nurse practitioner in 7 days. No lifting of more than gallon of milk for next 2 days. Please watch your urine or stool for any blood or dark-colored. Discharge Attestations Time Spent in Discharge Care*: greater than 30 min Specific Discharge Activities: Specific discharge activities: educating patient Quality Metrics Clinical Quality Measures During this hospital stay, did patient experience: None Coding Level of Care Code Established Pt Acute Braille Proofreader for Tim De Patient Type Established History Detailed Exam Detailed Medical Decision Making Moderate Complexity
--- NOTE | 2019-12-26 12:58 | PC.NURSE ---
Discharge instructions given per the physicians orders. Patient verbalized understanding of medication changes and post angiogram home care instructions and did not have any further questions. Stool specimen has been collected so outpatient stool is no longer needed. IV has been removed. Patient is dressing herself. No further needs identified at this time.
--- NOTE | 2019-12-26 13:03 | PC.NURSE ---
Medications delivered to bedside. Stent card is with patient.
== END 2019-12-26 13:03 | disposition home or self-care (01) ==
LOC: CCL 06:20 → CSU 06:39 → CCL 12-26 01:11 → CSU 12-26 06:15
PROVIDERS: PCP Family Medicine Geriatric Medicine; Visit Provider Internal Medicine Cardiovascular Disease
DX: I25.10 Atherosclerotic heart disease of native coronary artery without angina pectoris (principal); I11.0 Hypertensive heart disease with heart failure; I50.30 Unspecified diastolic (congestive) heart failure; I48.4 Atypical atrial flutter; E11.9 Type 2 diabetes mellitus without complications; D64.9 Anemia, unspecified; Z79.1 Long term (current) use of non-steroidal anti-inflammatories (NSAID); Z79.01 Long term (current) use of anticoagulants; Z79.84 Long term (current) use of oral hypoglycemic drugs; E66.01 Morbid (severe) obesity due to excess calories; Z68.42 Body mass index [BMI] 45.0-49.9, adult
CPT/HCPCS: 12345; 36415; 36416; 80048; 82274; 82962; 85014; 85018; 85025; 85347; 85730; 93005; 93306; 93460; C1725; C1751; C1769; C1874; C1887; C1894; C9600; C9601; J1644; J2250; J2930; J3010; J3246; J3490; J7030; Q0163; Q9967

== ENCOUNTER → 2020-01-01 11:48 | Outpatient (BNVA) | payer MEDICARE, MEDICAID, SELFPAY | PROVIDERS: PCP Family Medicine Geriatric Medicine; Visit Provider Nurse Practitioner Family | DX: I25.10 Atherosclerotic heart disease of native coronary artery without angina pectoris (principal) | CPT/HCPCS: 80048; 85025 ==

== ENCOUNTER → 2020-03-19 08:06 | Outpatient (BNVA) | payer MEDICARE, MEDICAID, SELFPAY | PROVIDERS: PCP Family Medicine Geriatric Medicine; Referring Provider Orthopaedic Surgery; Visit Provider Anesthesiology Pain Medicine | DX: M48.061 Spinal stenosis, lumbar region without neurogenic claudication (principal); M51.36 Other intervertebral disc degeneration, lumbar region; M54.16 Radiculopathy, lumbar region; M54.9 Dorsalgia, unspecified; M54.12 Radiculopathy, cervical region; M50.90 Cervical disc disorder, unspecified, unspecified cervical region; M47.812 Spondylosis without myelopathy or radiculopathy, cervical region; M25.561 Pain in right knee; M25.562 Pain in left knee; M62.830 Muscle spasm of back | CPT/HCPCS: 99205 ==

== ENCOUNTER → 2020-03-30 13:23 | Outpatient (BNVA) | payer MEDICARE, MEDICAID, SELFPAY | PROVIDERS: PCP Family Medicine Geriatric Medicine; Visit Provider Anesthesiology Pain Medicine | DX: M48.061 Spinal stenosis, lumbar region without neurogenic claudication (principal); M54.16 Radiculopathy, lumbar region; M54.9 Dorsalgia, unspecified | CPT/HCPCS: 64483; 64484; J1100; J3490 ==

== ENCOUNTER → 2020-04-14 09:41 | Outpatient (BNVA) | payer MEDICARE, MEDICAID, SELFPAY | PROVIDERS: PCP Family Medicine Geriatric Medicine; Visit Provider Anesthesiology Pain Medicine | DX: M54.9 Dorsalgia, unspecified (principal); M54.12 Radiculopathy, cervical region; M50.90 Cervical disc disorder, unspecified, unspecified cervical region; M47.812 Spondylosis without myelopathy or radiculopathy, cervical region; M51.36 Other intervertebral disc degeneration, lumbar region; M25.561 Pain in right knee; M25.562 Pain in left knee; M54.16 Radiculopathy, lumbar region; M48.061 Spinal stenosis, lumbar region without neurogenic claudication; M62.830 Muscle spasm of back | CPT/HCPCS: 99214 ==

== ENCOUNTER → 2020-04-28 14:29 | Outpatient (BNVA) | payer MEDICARE, MEDICAID, SELFPAY | PROVIDERS: PCP Family Medicine Geriatric Medicine; Visit Provider Internal Medicine Cardiovascular Disease | DX: I48.19 Other persistent atrial fibrillation (principal) | CPT/HCPCS: 80048; 85025 ==

== ENCOUNTER 2020-04-30 14:39 | Outpatient (CLI) | payer MEDICARE, MEDICAID, SELFPAY ==
--- NOTE | 2020-04-30 14:51 | USCV_ITS ---
Waleska Celis Age: 69 Gender: F : 1950 Exam Date: 04/30/2020 15:01 Ordering Phys: Peter Denson MD Technologist: Cristina Meraz Exam Location: [facility] [place] Indication: SYNCOPE Risk Factors: Previous Vascular Surgery: Right Brachial BP: / Left Brachial BP: / Right Left Velocity (cm/s) Spectral Plaque Velocity (cm/s) Spectral Plaque Syst/Diast Broadening Syst/Diast Broadening 61.70/ 24.30 Prox CCA 86.20 / 24.10 73.90/ 16.50 Mid CCA 77.70 / 20.20 86.00/ 18.70 Distal CCA 62.90 / 20.20 121.30/39.70 Prox ICA 60.70 / 26.50 122.40/45.20 Mid ICA 69.20 / 29.10 133.40/47.40 Distal ICA 69.20 / 29.10 144.40 ECA 90.60 1.81 ICA/CCA 0.89 Antegrade Vertebral Antegrade 23.50/ 7.50 cm/s 34.20/ 13.70 cm/s Tri Subclavian Tri FINDINGS Moderate heterogeneous plaques at the right bifurcation and proximal right carotid artery. Minimal plaques of the left bifurcation and internal carotid artery. CONCLUSIONS Moderate heterogeneous plaques at the right bifurcation and proximal right carotid artery with velocity elevation consistent with 16-49% stenosis. Minimal plaques at the left bifurcation and internal carotid artery. No similar previous studies are available for comparison Dr Elvin Montes MD [facility] (Electronically Signed) Final Date: 30 April 2020 19:01 S
== END 2020-04-30 14:40 | disposition home or self-care (01) ==
PROVIDERS: PCP Family Medicine Geriatric Medicine; Visit Provider Family Medicine
DX: R55 Syncope and collapse (principal); R42 Dizziness and giddiness; I65.23 Occlusion and stenosis of bilateral carotid arteries
CPT/HCPCS: 93880

== ENCOUNTER 2020-10-22 08:44 | Outpatient (CLI) | payer MEDICARE, MEDICAID, SELFPAY ==
[2020-10-22 09:13] VITALS: BMI 48.1
--- NOTE | 2020-10-22 09:16 | ECG_ITS ---
[facility] Test Date: 2020-10-22 Pat Name: Waleska Celis Department: Room: Gender: Female Project Inspector: : 1950 Requested By: Omaira Arzola Order Number: [id number] Yu MD: Mykel Branham M.D. Interpretive Statements NAME OF STUDY: LEXISCAN SESTAMIBI STRESS TEST INDICATION: [worsening sob/ hx of Coronary Artery Disease, ] Procedure: At the baseline, the blood pressure was 156/92 mmHg with a heart rate of 76 bpm. The electrocardiogram showed normal sinus rhythm, normal axis with normal ST and T's. The Lexiscan was infused over a period of 20 seconds. A total of 0.4 mg of Lexiscan was infused. The stress phase was continued for a total of 5 minutes. Heart rate was at the end of stress phase was 100 bpm and a blood pressure of 135/90 mmHg. The EKG at the peak infusion revealed since normal sinus rhythm with no significant ST-T wave changes. Sestamibi was injected 20 seconds after the Lexiscan infusion. Blood pressure at the end of recovery phase was 146/91mmHg with a heart rate of 100 bpm. Conclusion: 1. Normal EKG response to Lexiscan infusion 2. No Lexiscan induced chest pain or cardiac arrhythmia. 3. Normal blood pressure and heart rate response. 4. Sestamibi/sestamibi perfusion scan pending; see separate report. Electronically Signed On 12-08-2020 15:03:29 CDT by Mykel Branham M.D. [id number]
--- NOTE | 2020-10-22 09:18 | NMCV_ITS ---
NM yifan perf SPECT r/s* [id number] Waleska Celis Age: 69 Gender: F : 1950 Exam Date: 10/22/2020 10:07 Ordering Phys: Omaira Arzola Technologist: OSWALD Rodas Exam Location: [facility] Indications: CHEST PAIN STRESS TEST [facility] IMAGE PROTOCOL Rest/Stress 1 Lexiscan Day Radiopharmaceutical Dose (mCi) Administration Site Administered by Rest: Tc-99m 10.9 IV OSWALD Arriola Sestamibi Stress:Tc-99m 32.4 IV OSWALD Arriola Sestamibi Rest: 22-Oct-2020 60 Discovery 630 Stress: 22-Oct-2020 30 Discovery 630 0.4mg Lexiscan. Images obtained in supine and prone position. SPECT RESULTS Technical Quality: Excellent Raw Data Analysis: Normal Image Corrections: No attenuation or motion correction applied Summed Stress Score: 4 Summed Rest Score: 0 Summed Difference Score: 4 PERFUSION FINDINGS There is a small in size, reversible perfusion defect in the apical and apical inferior jefferson.This is consistent with ischemia FUNCTIONAL RESULTS (calculated via Gated SPECT) Stress Image LV EF (%): 72 Stress EDV (mL):53 TID: 0.97 Stress ESV (mL):15 FUNCTIONAL FINDINGS: There is normal left ventricular systolic function. IMPRESSIONS 1. Abnormal myocardial perfusion imaging with small sized, reversible perfusion defect of the apical and apical inferior wall. This is consistent with ischemia 2. LV systolic function is normal Mykel Branham MD (Electronically Signed) Final Date: 22 October 2020 12:37 S
[2020-10-22] MEDS: regadenoson 0.4 Mg/5 ml Syringe IVP (10:45)
[2020-10-22 10:53] VITALS: BP 146/91; PULSE 100
== END 2020-10-22 08:45 | disposition home or self-care (01) ==
PROVIDERS: PCP Family Medicine Geriatric Medicine; Visit Provider Nurse Practitioner Family
DX: R06.02 Shortness of breath (principal); R07.9 Chest pain, unspecified
CPT/HCPCS: 78452; 93017; A9500; J2785

== ENCOUNTER → 2020-11-12 09:06 | Outpatient (BNVA) | payer MEDICARE, MEDICAID, SELFPAY | PROVIDERS: PCP Family Medicine Geriatric Medicine; Referring Provider Internal Medicine Cardiovascular Disease; Visit Provider Internal Medicine Cardiovascular Disease | DX: I25.10 Atherosclerotic heart disease of native coronary artery without angina pectoris (principal); Z01.818 Encounter for other preprocedural examination; Z20.822 Contact with and (suspected) exposure to COVID-19; I48.91 Unspecified atrial fibrillation; Z79.82 Long term (current) use of aspirin | CPT/HCPCS: 80048; 85025; 85610; 87635 ==

== ENCOUNTER 2020-11-17 06:27 | Day surgery (SDC) | payer MEDICARE, MEDICAID, SELFPAY ==
[2020-11-17] VITALS (49 sets, daily range): BP systolic 71–176; BP diastolic 35–91; PULSE 61–107; RESP 11–24; TEMP 36.3–37.1; O2SAT 88–97; BMI 48.1
--- NOTE | 2020-11-17 08:31 | XACV_ITS ---
Ht: 145 cm Wt: 94 kg BSA: 2.01 m2 Gender: Female : 1950 Any Known Allergies: Shellfish Exam Priority: Routine Procedure(s): Procedure Description: Diagnostic procedure Procedure Description: Coronary Angiography Diagnostic Cath Status: Elective Diagnostic Findings * Left Main has no disease. * Left Anterior Descending has no disease. * Proximal Right Coronary Artery: significant 80% stenosis, CYNTHIA: 0 flow. * Mid Circumflex: significant 75% stenosis, CYNTHIA: 3 flow, FFR performed: ratio is 0.96. * Coronary angiography shows right dominance. PCI Status: Elective PCI Indication: New Onset Angina <= 2 months Interventional Findings * Successful PCI to proximal RCA. Lesion was prepared with 2 overlapping 2.5x12 and 2.75x12 [ROOPA INTEGRITY 12 TAMEKA in its entire length to ensure proper approximation. Excellent angiographic result with CYNTHIA-3 flow was achieved. Please note that second stent was placed due to movement of the patient and secondary to geographical miss in the proximal segment of the fIst. * Proximal Right Coronary Artery: 80% stenosis treated with a MDT R ROOPA 2.5X12 JAE, and MDT R ROOPA 2.75X12 JAE. 0% residual stenosis, CYNTHIA: 3 flow. Conclusions 1. This is a very complicated patient with short stature obesity and prior history of stent placement in the LAD and mid RCA. Due to worsening of chest pain shortness of breath despite optimization of medicine patient was brought in for coronary angiogram. She was noted to have normal without significant stenosis of left main, LAD has patent prior mid stent. Circumflex has mid moderate lesion but which was nonsignificant by FFR. RCA showed patent mid stent however there was severe dampening of the vessel upon engagement was noted there was a proximal eccentric significant more than 80% stenosis. It was thought to be significant due to severe dampening and by angiographic evidence and because of the fact patient continues to have angina and worsening of shortness of breath.. 2. There is significant coronary artery disease with two vessel disease. 3. Proximal Right Coronary Artery was treated with a Drug Eluting Stent, and Drug Eluting Stent. Recommendations * Continue current medical management and risk factor modification. Diagnostic RX Recommendation: PCI w/o planned CABG Pressures Phase:Rest AO : 114 / 95 ( 95 ) @ 8:28:00 AM 122 / 79 ( 97 ) @ 8:39:00 AM Clinical Evaluation EBL: 5mL-10mL Procedural Details Procedure Consent Obtained. Pre-Procedure Time Out. Identified patient by full name and date of as verbalized by the patient/guarantor. Does the consent match the physician's order: Yes. Accurate & Complete Informed Consent: Yes. Inpatient/Outpatient History & Physical on Chart: Yes. If H&P is completed, is and addenduem needed: No; If yes, is the addendum complete: N/A. Visualize and Verify Site with Patient/Guarantor: N/A. Relevant Radiology Images available: Yes. Pre-op teaching completed and patient verbalized understanding. The risks, benefits, and alternatives of sedation and/or procedure were discussed by physician. The patient agrees to continue. Procedure started. Correct patient, site and procedure confirmed by cath team. Current diagnosis: Chest Pain. PERRLA. Strong, equal hand pharmacy operations coordinator bilaterally. Lungs clear x 5 lobes. IV Site on Arrival: 20 gauge in the right anticubital. IV Fluids: 0.9% NaCl at KVO. 0 mL infused prior to forestry farm laborer. Pre Procedural Pulses: bilateral dorsalis pedis was 3+. Pre Procedural Pulses: bilateral posterior tibial was Doppled. Pre Procedural Pulses: bilateral radial was 2+. Oxygen started at 2liters/min via nasal canula. bilateral groins was prepped with chloroprep then draped in the usual sterile fashion. right radial was prepped with chloroprep then draped in the usual sterile fashion. Baseline sample Acquired. HR: 83 BPM. Physician arrived. Equipment: 6F - Radial. Heparinized Saline (2 units/mL), 1000 mL bag. Cardiac Cath Pack. ACIST Manifold Kit Model BT 2000. Lidocaine 1% infiltrated to the right radial. Arterial access obtained. A 5 tanzanian TIG catheter in over wire. Multiple views taken of left coronary artery. Catheter redirected to the RCA. Multiple views taken of right coronary artery. Catheter out. JL3 guide inserted. Guide catheter out. 6 tanzanian XB 3 guide catheter was inserted over the wire. Catheter out. Radial site aborted, will obtain access in the femoral artery. TR band placed. Hemostasis obtained. Physician scrubbed in. Immediate Pre-Procedure Time Out. Correct Patient: Yes; Correct Procedure: Yes; Correct Site: Yes; Correct Patient Position: Yes; Correct Supplies: Yes; Dried Flammable Prep: Yes; Blood Products Available: No;. Lidocaine 1% infiltrated to the right groin. 6 tanzanian JL 3 guide catheter was inserted over the wire. Catheter out. 6 tanzanian XB 3 guide catheter was inserted over the wire. Guide catheter out. 6 tanzanian AL 0.75 guide catheter was inserted over the wire. Guide catheter out. 6 tanzanian JL 3 guide catheter was inserted over the wire. [place] wire inserted to anchor the guide catheter in place. An FFR value of 0.97 was obtained for a lesion located at Mid CX. Guide catheter out. Wire out. ACT drawn. Results 186 seconds. Therapeutic limits - pre-heparin administration 90-150 seconds and monitoring heparin during a vascular procedure >250 seconds. 6 tanzanian JR 3 guide catheter was inserted over the wire. Guide catheter out. 6 tanzanian JR 3.5 guide catheter was inserted over the wire. severe dampening upon engagement of JR 3 catheter. [place] guidewire was advanced through the guide catheter to lesion in the mid RCA. AP pads placed on patient. Inflation Number : 1 A MDT R ROOPA 2.5X12 JAE -Lot Number#[id number] was prepped and advanced across the Mid RCA. The stent was deployed at 18 TAMEKA for 0:15 seconds. Stent expiration date: 07/27/2022. Stent balloon out over wire. Inflation Number : 2 A MDT R ROOPA 2.75X12 JAE -Lot Number#[id number] was prepped and advanced across the Mid RCA. The stent was deployed at 12 TAMEKA for 0:20 seconds. Expiration date: 08/06/2022. Stent balloon out over wire. ACT drawn. Results 262 seconds. Therapeutic limits - pre-heparin administration 90-150 seconds and monitoring heparin during a vascular procedure >250 seconds. Everything out. Sheath(s) sutured into position with 2-0 silk and sterile 4x4's and Op-site applied over the site. No oozing or signs and symptoms of hematoma noted. Arterial sheath flushed and connected to tranducer and pressure bag with heparinized saline. A TR Band was successful obtaining hemostatsis at the Right Radial artery insertion site. A Suture was successful obtaining hemostatsis at the Right Femoral artery insertion site. Post Procedure: Pulses reassessed and unchanged. PERRLA. Strong, equal hand pharmacy operations coordinator bilaterally. No VTE prophylaxis required. Contrast type used: Omnipaque 300 mgI/mL, 500 mL bottle. Post-op diagnosis: Multivessel CAD. Complications: None. Estimated blood loss: 5mL-10mL. Medication's Wasted: Heparin = 4000 units mL. Medication's Wasted: Nitro = 49.8 mg. Total IV fluids: 122 mL. Procedure completed. PCI Indication: NSTE. [facility] Clinical Fraility Score: 4: Vulnerable. Vehicle Body Maker Indications: Worsening Angina. Chest Pain Symptom Assessment: Typical Angina Symptoms. Cardiovascular Instability: No. Vital chart was stopped. Patient transferred by bed to 1st floor. Access Site Site: Right Radial artery Sheath Size: 6 Fr Hemostasis Method: TR Band Hemostasis Success: Successful Site: Right Femoral artery Sheath Size: 6 Fr Hemostasis Method: Suture Hemostasis Success: Successful Procedure Medications Start: 9:14 AM Stop: 9:14 AM Medication: Versed Amount: 1 mg Route: I.V. Start: 9:14 AM Stop: 9:14 AM Medication: Fentanyl Amount: 50 mcg Route: I.V. Start: 9:20 AM Stop: 9:20 AM Medication: Nitrogylcerin Amount: 200 mcg Route: I.A. Start: 9:25 AM Stop: 9:25 AM Medication: Heparin Amount: 5000 units Route: I.V. Start: 9:38 AM Stop: 9:38 AM Medication: Heparin Amount: 2000 units Route: I.V. Start: 9:40 AM Stop: 9:40 AM Medication: Versed Amount: 1 mg Route: I.V. Start: 9:40 AM Stop: 9:40 AM Medication: Fentanyl Amount: 50 mcg Route: I.V. Start: 10:34 AM Stop: 10:34 AM Medication: Heparin Amount: 3000 units Route: I.V. Start: 10:37 AM Stop: 10:37 AM Medication: Versed Amount: 1 mg Route: I.V. Start: 10:37 AM Stop: 10:37 AM Medication: Fentanyl Amount: 50 mcg Route: I.V. I, the attending physician, have reviewed and verified all procedure medications. Yes, all medications given per verbal order History/Risk Factors Hypertension: No Dyslipidemia: No Peripheral Arterial Disease (PAD): No Myocardial Infarction (HI): No Obesity: No Renal Disease: No Tobacco Use: Never Prior Interventions PCI: Yes CABG: No Valve Surgery: No Report Signatures Finalized by Kasandra Brito MD on 11/29/2020 04:33 PM
--- NOTE | 2020-11-17 09:02 | W.PM.OPSFHP ---
Same Day Surgery H&P Indication for Procedure/HPI DATE OF PROCEDURE: November 17, 2020 CHIEF COMPLAINT/INDICATIONFOR SURGICAL PROCEDURE: Worsening of symptoms despite optimization of medicine PREOP DIAGNOSIS: unexplained shortness of breath , atypical chest pain PLANNED PROCEDRUE: Operation Date: 11/17/20 08:30 Proposed Procedures p Cardiac Catheterization 32388 R94.39(Left) - Kasandra Brito MD 70-year-old female past medical history significant for morbid obesity history of LAD and RCA stent nearly 1 year ago on optimal medical management for the last 2 to 3 months has been struggling with worsening of shortness of breath chest heaviness and palpitations exactly the similar way when she had her stent. According to the patient she is not feeling better and getting worse she now can barely walk to her washroom before sit down. Occasionally she wake up in the bed with chest pressure and shortness of breath. She underwent stress test which appeared to be equivocal. Since her medicine were optimized and she cannot tolerate nitro glycerin and because of the fact she is worsening and had exactly the similar symptoms when she had her stents she is brought in for angiogram. She reports allergy to shellfish. She is not allergic to any contrast dye. Patient has been explained all risk benefit and alternative for the procedure. She has been explained the risk for contrast-induced nephropathy stroke arrhythmia major minor bleed infection hematoma. She would like to proceed with it. Medications/Allergies* Home Medications Medication Instructions Recorded Confirmed Type metformin 500 mg tablet 500 mg PO BID 05/24/19 11/16/20 History acetaminophen 500 mg tablet 500 mg PO Q6H PRN 03/19/20 11/16/20 History pantoprazole 40 mg tablet,delayed 40 mg PO BID tab 03/19/20 11/16/20 History release furosemide 40 mg tablet 40 mg PO DAILY PRN 04/28/20 11/16/20 History metoprolol succinate 25 mg PO BID 11/16/20 11/17/20 History Allergies/Adverse Reactions Allergy/AdvReac Type Severity Reaction Status Date / Time cephalexin Allergy RASH Verified 09/14/20 10:05 naproxen [From Naprosyn] Allergy ITCHING Verified 09/14/20 10:05 SHELL FISH Allergy Severe ALGY-Anaphy Uncoded 09/14/20 10:05 laxis Pertinent History/Comorbid Conditions* Medical History (Updated 11/05/20 @ 09:45 by Panda Valadez MD) Anemia Atrial fibrillation Carpal tunnel syndrome, bilateral upper limbs Cervical disc disorder with myelopathy of mid-cervical region Coronary artery disease History of breast cancer left, removed cancer Morbid (severe) obesity due to excess calories Palpitations Shortness of breath Unspecified atrial flutter not anticoagulated due to drop in hemoglobin Surgical History (Updated 08/01/19 @ 08:17 by Jacinda Garcia APRN) History of bowel resection History of hysterectomy Family History (Updated 05/24/19 @ 11:08 by Ara Frey RN) Diabetes Father Hypertension Father Brother Sister Social History Smoking and tobacco status: never smoked Second hand smoke exposure: Yes Alcohol intake: never Caregiver/support person: Yes Lives independently: Yes Household members: spouse Housing: House Marital status: service: No Current occupational status: unemployed Current occupation: previously employeed with Independent living until carpal tunnel relief History of recent travel: No Pertinent Exam Findings alert, oriented x 3 and clear to auscultation bilaterally Conscious Sedation Assessment PATIENT ASSESSED PRIOR TO SEDATION, WITH NO CHANGE NOTED: Yes AIRWAY EVAL/ANESTHESIA PLAN: ASA II, Risks, benefits & alternatives of sedation and/or procedure discussed and Patient agrees to continue as planned Recommendations Surgery/Procedure today Other Plans: Left heart cath Coding Level of Care Code Acute Axle Inspector for Tim De
--- NOTE | 2020-11-17 12:48 | ECG_ITS ---
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
[2020-11-17] MEDS: clopidogrel 75 mg Tablet PO (13:01)
[2020-11-17] MEDS: ondansetron 2 mg/ML SDV 2 mL 4 MG IVP (13:07)
[2020-11-17 14:33] LABS: Partial Thromboplastin Time 48.5 SECONDS (23.9-36.7)
--- NOTE | 2020-11-17 15:25 | ECG_ITS ---
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: : 1950 Requested By: Kasandra Brito Order Number: [id number] Reading MD: KASANDRA BRITO Measurements Intervals [place] Rate: 68 P: 58 DE: 156 QRS: 34 QRSD: 77 T: 42 QT: 424 QTc: 452 Interpretive Statements SINUS RHYTHM WARNING: DATA QUALITY MAY AFFECT INTERPRETATION INTERPRETATION BASED ON A DEFAULT AGE OF 40 YEARS Compared to ECG 11/17/2020 14:16:24 No significant changes Electronically Signed On 11-17-2020 20:11:33 CDT by KASANDRA BRITO [email or web address]/store/[id number] f
[2020-11-17] MEDS: metoprolol succinate ER (24 HR) 25 mg Tablet PO (18:52)
[2020-11-17] MEDS: pantoprazole DR 40 mg Tablet PO (18:52)
[2020-11-17] MEDS: morphine 4 mg/mL SDV 1 mL 2 MG IVP (21:57)
[2020-11-17] MEDS: FUROsemide 10 mg/mL SDV 4mL 40 MG IVP (21:59)
--- NOTE | 2020-11-17 22:58 | PC.NURSE ---
Around 2199: Received orders from Dr. Brito, see MAR.
[2020-11-18] VITALS (41 sets, daily range): BP systolic 90–150; BP diastolic 44–117; PULSE 82–110; RESP 5–37; TEMP 36.6–37.3; O2SAT 91–94
--- NOTE | 2020-11-18 03:09 | PC.NURSE ---
Patient has been calling family members stating that nurses are not assisting with patient needs. Hourly rounding has been performed through out the shift. Call light and all belongings are within reach. Patient has been assisted at all times during ambulation.
--- NOTE | 2020-11-18 08:19 | ECG_ITS ---
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 Measurements Intervals [place] Rate: 106 P: 51 TX: 171 QRS: 9 QRSD: 94 T: 6 QT: 333 QTc: 444 Interpretive Statements SINUS TACHYCARDIA MINIMAL VOLTAGE CRITERIA FOR LVH, CONSIDER NORMAL VARIANT [MEETS CRITERIA IN ONE OF: R(aVL), S(V1), R(V5), R(V5/V6)+S(V1)] ST ELEVATION, CONSIDER ANTEROLATERAL INJURY [MARKED ST ELEVATION W/O NORMALLY INFLECTED T WAVE IN V3-V6]vs early repolarization ACUTE ID Compared to ECG 11/17/2020 15:25:11 ST (T wave) deviation now present Myocardial infarct finding now present Sinus rhythm no longer present Electronically Signed On 11-18-2020 22:59:49 CDT by Elvin Montes M.D. [id number]
--- NOTE | 2020-11-18 08:26 | XACV_ITS ---
Exam Room: 111 Ht: 145 cm Wt: 94 kg BSA: 2.01 m2 Gender: Female : 1950 Any Known Allergies: Shellfish Exam Priority: Routine Procedure(s): Procedure Description: Diagnostic procedure Procedure Description: Coronary Angiography Diagnostic Cath Status: Emergency Diagnostic Findings * Left Main has no disease. * Left Anterior Descending has no disease. * Right Coronary Artery has no disease. * Mid Circumflex: moderate 50% stenosis, CYNTHIA: 3 flow. * Coronary angiography shows right dominance. Conclusions 1. There is moderate coronary artery disease with one vessel disease. 2. Patient was brought back to the Food Beverage Supervisor after having off-and-on and worsening of chest pain with dynamic EKG changes. This patient was stented yesterday in the proximal segment of the RCA while FFR of the left circumflex did not show significant stenosis which was left alone. Due to worsening of chest pain and dynamic EKG changes patient was brought back to the Food Beverage Supervisor.Left main: Normal, LAD has patent prior stent, LCx has mid 50% stenosis. RCA proximal and mid stents are patent without significant stenosis or thrombus.. Recommendations * Continue current medical management and risk factor modification. Diagnostic RX Recommendation: medical therapy and/or counseling Pressures Phase:Rest AO : 107 / 68 ( 85 ) @ 7:47:00 AM 109 / 74 ( 90 ) @ 7:50:00 AM Clinical Evaluation EBL: 5mL-10mL Procedural Details Procedure Consent Obtained. Pre-Procedure Time Out. Identified patient by full name and date of as verbalized by the patient/guarantor. Does the consent match the physician's order: Yes. Accurate & Complete Informed Consent: Yes. Inpatient/Outpatient History & Physical on Chart: Yes. If H&P is completed, is and addenduem needed: No; If yes, is the addendum complete: N/A. Visualize and Verify Site with Patient/Guarantor: N/A. Relevant Radiology Images available: N/A. Pre-op teaching completed and patient verbalized understanding. The risks, benefits, and alternatives of sedation and/or procedure were discussed by physician. The patient agrees to continue. Procedure started. PERRLA. Strong, equal hand smoke room operator bilaterally. Lungs clear x 5 lobes. IV Site on Arrival: 20 gauge in the right hand. IV Fluids: 0.9% NaCl at KVO. 0 mL infused prior to cath lab manager. Oxygen started at 4liters/min via nasal canula. bilateral groins was prepped with chloroprep then draped in the usual sterile fashion. AP pads applied to patient. Physician arrived. Equipment: 6F - Femoral. Cardiac Cath Pack. ACIST Manifold Kit Model BT 2000. Heparinized Saline (2 units/mL), 1000 mL bag. Kit, Micropuncture. [facility] Clinical Fraility Score: 4: Vulnerable. Food Beverage Supervisor Indications: ACS <= 24 hours. Chest Pain Symptom Assessment: Typical Angina Symptoms. Cardiovascular Instability: Yes, if yes, Persistant Ischemic Symptoms. Correct patient, site and procedure confirmed by cath team. Baseline sample Acquired. HR: 113 BPM. Physician scrubbed in. Immediate Pre-Procedure Time Out. Correct Patient: Yes; Correct Procedure: Yes; Correct Site: Yes; Correct Patient Position: Yes; Correct Supplies: Yes; Dried Flammable Prep: Yes; Blood Products Available: N/A;. Lidocaine 1% infiltrated to the right groin. Arterial access obtained with micropuncture set. 6 burundian JR 3.5 guide catheter was inserted over the wire. Inventory is VNGtronic Preston XT .014 190cm Str. Guidewire. Guide catheter out. 6 burundian JL 3 guide catheter was inserted over the wire. Side port of sheath attached to Normal Saline flush at KVO to maintain patency. Guide catheter out. A Right femoral angiogram was performed to determine safe placement of closure device. A Perclose ([email or web address]) was successful obtaining hemostatsis at the Right Femoral artery insertion site. Perclose placed without complications. No signs or symptoms of hematoma noted. Sterile dressing applied per usual sterile fashion. Medication's Wasted: Heparin = 6000 units. Total IV fluids: 25 mL. Contrast type used: Visipaque 320 mgI/mL, 500 mL bottle. Post Procedure: Pulses reassessed and unchanged. PERRLA. Strong, equal hand smoke room operator bilaterally. No VTE prophylaxis required. Physician scrubbed out. Complications: none. Estimated blood loss: 5mL-10mL. Post-op diagnosis: patent stents. Procedure completed. Patient transferred by bed to 1st floor. Vital chart was stopped. Access Site Site: Right Femoral artery Sheath Size: 6 Fr Hemostasis Method: Perclose ([email or web address]) Hemostasis Success: Successful Procedure Medications Start: 8:37 AM Stop: 8:37 AM Medication: Versed Amount: 1 mg Route: I.V. Start: 8:37 AM Stop: 8:37 AM Medication: Fentanyl Amount: 50 mcg Route: I.V. Start: 8:57 AM Stop: 8:57 AM Medication: Lopressor (metoprolol) Amount: 5 mg Route: I.V. Start: 8:59 AM Stop: 8:59 AM Medication: Fentanyl Amount: 50 mcg Route: I.V. I, the attending physician, have reviewed and verified all procedure medications. Yes, all medications given per verbal order History/Risk Factors Hypertension: No Dyslipidemia: No Peripheral Arterial Disease (PAD): No Myocardial Infarction ([place]): No Obesity: No Renal Disease: No Tobacco Use: Never Prior Interventions PCI: Yes CABG: No Valve Surgery: No Report Signatures Finalized by Kasandra Brito MD on 11/29/2020 04:36 PM
--- NOTE | 2020-11-18 08:32 | P.PN_ITS ---
Subjective Subjective: Interval history: Patient complained of chest pain with mild ST elevation in the 1 and aVL and inferior lead ST changes for which she was taken to the Electrical Machine Builder noted to have patent stent in the RCA without any significant in-stent thrombosis. No other vessel noted to be suspicious for acute coronary syndrome. Medications: Reviewed: Yes Vitals/I&O/Wt Last Vital Signs Temp 98.5 F 11/18/20 04:00 Pulse 92 11/18/20 04:00 Resp 18 11/18/20 04:00 BP 106/65 11/18/20 04:00 Pulse Ox 94 11/18/20 04:00 11/17/20 11/18/20 11/18/20 22:59 06:59 14:59 Intake Total 75 / 75 Output Total 300 / 301 Balance 74 / 74 -300 / -226 Weight last 48 hrs Weight 207 lb Physical Exam Const: COMMON NORMALS: alert Resp: COMMON NORMALS: clear to auscultation bilaterally AUSCULTATION: clear to auscultation bilaterally Neuro: SENSORIUM/ORIENTATION: Yes alert Data : 11/18/20 15:07 11/18/20 15:07 A&P Assessment and plan (1) Chest pain: Patient still complaining of chest pain appear to more of a pleuritic or pericarditis like corrected. We will try Toradol. Angiogram did not show significant etiology such as in-stent thrombosis or vessel dissection r esponsible for chest pain. Status: Acute Qualifiers: Chest pain type: other chest pain Qualified Code(s): R07.89 - Other chest pain (2) Coronary artery disease: Status post drug-eluting stent to proximal RCA for significant stenosis. Mid circumflex was not noted to be significant by FFR therefore left for medical management Status: Acute Qualifiers: Coronary Disease-Associated Artery/Lesion type: [place] artery [place] vs. transplanted heart: [place] heart Associated angina: without angina Qu alified Code(s): I25.10 - Atherosclerotic heart disease of [place] coronary artery without angina pectoris (3) Atrial fibrillation: Patient is sinus rhythm however left appeared to be tachycardic will increase beta-shaneka to 50 twice daily Status: Acute Qualifiers: Atrial fibrillation type: persistent (not longstanding) Qualified Code(s): I48.19 - Other persistent atrial fibrillation (4) Morbid (severe) obesity due to excess calories: Advised to lose weight Status: Chronic Attestations Medical Necessity Statement*: Patient hospitalization for above defined care. Coding Level of Care Code Established Pt Acute Audio/Video Engineer for Tim De Patient Type Established History Detailed Exam Detailed Medical Decision Making Moderate Complexity Diagnoses Chest pain R07.89 Chest pain type: other chest pain Coronary artery disease I25.10 Coronary Disease-Associated Artery/Lesion type: [place] artery [place] vs. transplanted heart: [place] heart Associated angina: without angina Atrial fibrillation I48.19 Atrial fibrillation type: persistent (not longstanding) Morbid (severe) obesity due to excess calories E66.01
--- NOTE | 2020-11-18 08:33 | W.PM.OPSUD ---
Surgery/Procedure H&P Update DATE OF PROCEDURE: November 18, 2020 DATE H&P PERFORMED: 11/18/19 H&P UPDATE INFORMATION: I have reviewed H&P completed within last 30 days and I have examined patient prior to procedure PREOP DIAGNOSIS: abn EKG, recurrent chest pain PLANNED PROCEDURE: Operation Date: 11/17/20 08:30 Proposed Procedures p Cardiac Catheterization 21034 R94.39(Left) - Kasandra Brito MD PATIENT REASSESSED PRIOR TO SEDATION, WITH NO CHANGE NOTED: Yes PHYSICAL EXAM: alert, oriented x 3 and clear to auscultation bilaterally AIRWAY EVAL/ANESTHESIA PLAN: ASA II, Risks, benefits & alternatives of sedation and/or procedure discussed and Patient agrees to continue as planned
--- NOTE | 2020-11-18 10:11 | PC.CHAP ---
Pastoral Care Encounter/Spiritual Assessment Type of Contact [] Declined salesperson used cars visit [] Patient/Family/Request visit [] Outpatient visit [] Follow-up visit [] Physician referral [] Code/Alert [x] Routine visit [] Staff referral [] Actively dying [] Patient sleeping [] Family support [] [x] Out of room [] Palliative care [] [] Receiving care in room [] Pre-surgical visit [] Trauma [] Long length of stay [] ICU visit [] Other: Relational/Emotional Strength [] Patient feels connected with others/family/visitors/staff [] Distress [] Loneliness/isolation [] Abandonment Spirituality of Patient [] Person of [place] [] Attends Sikhism of their [place] [] Believes in Prayer [] Reads Bible or Orthodox materials [] There are Spiritual issues to be addressed Social And Political Studies Professor Interventions [x] Prayer [] Active listening [] Non-anxious presence [] Spiritual/emotional support [] Crisis/trauma care [] Spiritual counseling [] Bereavement support [] Provided bereavement packet [] Provided Bible/devotional materials [] Provided toy/stuffed animal, coloring book to patient or family member [] Provided Communion [] Anointing/[place] [] Salvation [x] Completed spiritual assessment [] Other: Impact on Illness or Injury [] Angry [] Fearful [] Anxious [] Often cries [] Exhaustion [] Unable to work [] Unable to attend yarsanism [] Unable to walk/stand [] Unable to read [] Unable to drive [] Unable to eat/drink [] Unable to sleep [] Unable to be with family [] Patient intubated [] Other: Summary Time spent with patient
[2020-11-18] MEDS: metoprolol succinate ER (24 HR) 25 mg Tablet PO ×3 (10:15→15:06)
[2020-11-18] MEDS: ferrous sulfate EC 325 mg Tablet PO (10:15)
[2020-11-18] MEDS: clopidogrel 75 mg Tablet PO (10:15)
[2020-11-18] MEDS: pantoprazole DR 40 mg Tablet PO ×2 (10:16→17:42)
--- NOTE | 2020-11-18 14:34 | PC.NURSE ---
Dr Brito rounding bedside with patient verbal instructions to obtain CBC BMP toradol 15mg IVP x1 lasix IVp 20 mg x1 stop all fluids
[2020-11-18] MEDS: ketorolac 30 mg/mL INJ 15 MG IVP (15:04)
[2020-11-18] MEDS: FUROsemide 10 mg/mL SDV 2mL 20 MG IVP (15:05)
[2020-11-18 15:15] LABS: Basophils % 0.2 %; Hemoglobin 12.9 g/dL (11.5-15.3); Lymphocytes # 1.1 10^3/uL (0.8-4.8); Lymphocytes % 6.2 %; Mean Corpuscular HGB Conc 32.3 g/dL (30.0-36.0); Mean Corpuscular Hemoglobin 30.8 pg (28.0-34.0); Mean Corpuscular Volume 95.5 fL (81-99); Mean Platelet Volume 10.9 fL (7.4-10.4); Monocytes # 1.4 10^3/uL (0.2-0.9); Monocytes % 8.1 %; Neutrophils # 14.52 10^3/uL (1.8-7.7); Neutrophils % 84.7 %; Nucleated Red Blood Cells % 0 %; Platelet Count 242 10^3/cmm (130-400); Red Blood Count 4.19 10^6/uL (4.1-5.3); White Blood Count 17.1 10^3/uL (4.0-10.0)
[2020-11-18 15:44] LABS: Blood Urea Nitrogen 23 mg/dL (8-23); Calcium 8.5 mg/dL (8.5-10.5); Carbon Dioxide 26 mmol/L (22-29); Chloride 100 mmol/L (98-107); Glomerular Filtration Rate 40.7 mL/min (90-130); Glucose 166 mg/dL (65-115); Osmolality Calculated 291 mOsm/kg (285-295); Sodium 137 mmol/L (136-145)
[2020-11-18 15:52] LABS: Anion Gap 15.8 (5-19)
[2020-11-18 15:53] LABS: Potassium 4.8 mmol/L (3.5-5.1)
--- NOTE | 2020-11-18 19:07 | PC.NURSE ---
Orders received from Dr. Brito to admit patient to [facility]SU for observation. See orders.
--- NOTE | 2020-11-18 19:24 | PC.NURSE ---
Pt lying in bed resting with eyes closed. Pt had no signs or c/o of pain or discomfort. Drsg to right groin dry and intact. Call right in reach. Will cont to monitor.
[2020-11-19 03:11] VITALS: BP 142/72; PULSE 98; RESP 20; TEMP 36.8; O2SAT 94
[2020-11-19 05:54] VITALS: PULSE 101
[2020-11-19] MEDS: acetaminophen 325 mg Tablet 650 MG PO (08:44)
[2020-11-19] MEDS: metoprolol succinate ER (24 HR) 25 mg Tablet PO ×2 (08:45→08:47)
[2020-11-19] MEDS: pantoprazole DR 40 mg Tablet PO (08:47)
[2020-11-19] MEDS: clopidogrel 75 mg Tablet PO (08:47)
[2020-11-19] MEDS: ferrous sulfate EC 325 mg Tablet PO (08:48)
--- NOTE | 2020-11-19 09:57 | PC.NURSE ---
Her BP cuff was not working, got a diastolic of 59 and a map of 80 but it would not show systolic
--- NOTE | 2020-11-19 11:10 | P.DS_ITS ---
Discharge Providers Date of Discharge: November 19, 2020 Attending Provider at Discharge: Kasandra Brito MD Primary Care Provider: Juan Romero Diagnoses at Discharge Discharge Diagnosis (1) Chest pain: Status: Acute Qualifiers: Chest pain type: other chest pain Qualified Code(s): R07.89 - Other chest pain (2) Coronary artery disease: Status: Acute Qualifiers: Associated angina: without angina Coronary Disease-Associated Artery/Lesion type: [place] artery [place] vs. transplanted heart: [place] heart Qualified Code(s): I25.10 - Atherosclerotic heart disease of [place] coronary artery without angina pectoris (3) Atrial fibrillation: Status: Acute Qualifiers: Atrial fibrillation type: persistent (not longstanding) Qualified Code(s): I48.19 - Other persistent atrial fibrillation (4) Morbid (severe) obesity due to excess calories: Status: Chronic Hospital Course Hospital Course 70-year-old female past medical history significant for morbid obesity, hypertension, hyperlipidemia, coronary artery disease status post LAD and RCA stent for worsening of shortness of breath chest pain underwent left heart cath noted to have significant proximal RCA disease before the previously placed stent it was treated with drug-eluting stent. LAD stent in the mid was patent previously placed mid RCA stent was patent while distal left circumflex showed moderate stenosis of 60 to 70% which was nonsignificant by FFR 0.96. Post PCI next morning before discharge patient started having chest pain with abnormal EKG she was taken back to the [facility] he was noted to have patent all the stents without any more significant lesion. She was watched overnight there again since she continues to hurt sometime in the shoulder and the back and in the chest area. She was also treated with Toradol which relieved her pain. Pain she was describing some time upon deep inhalation. Today she is appear to be stable groin wound looks good no hematoma. Vitals are stable we will discharge her home. Patient has been advised to follow-up with us in the clinic in 7 days with Ms. Omaira Arzola our cardiology nurse practitioner. She has been advised in case of worsening of chest pain shortness of breath she should come to the ER by calling 911. Physical Exam Narrative: EXAM NARRATIVE: GENERAL: Patient is alert, awake and oriented x3. Morbidly NECK: No jugular vein distension. HEENT: No cyanosis. No icterus. No pallor. HEART: Regular S1 and S2. No murmur, rub or gallop. LUNGS: Clear to auscultate bilaterally. ABDOMEN: Soft, nontender and nondistended. Positive bowel sounds. No guarding, rebound or tenderness. CENTRAL NERVOUS SYSTEM: Grossly nonfocal. EXTREMITIES: Lower extremities without edema bilaterally. Right groin without hematoma or bruising Const: COMMON NORMALS: alert Resp: COMMON NORMALS: clear to auscultation bilaterally AUSCULTATION: clear to auscultation bilaterally Neuro: SENSORIUM/ORIENTATION: Yes alert Discharge Data Data Completed and Pending: Pending at discharge Category Date Time Status CA echo doppler c omplete Routine Exams 11/19/20 09:07 Ordered EYEGLASS LENS GENERATOR request for service Routin e Exams 11/17/20 08:31 Taken EYEGLASS LENS GENERATOR request for service Routin e Exams 11/18/20 08:26 Taken Labs from last 24 hours 11/18/20 11/18/20 15:07 15:07 WBC 17.1 H RBC 4.19 Hgb 12.9 Hct 40.0 MCV 95.5 MCH 30.8 MCHC 32.3 RDW 14.0 Plt Count 242 MPV 10.9 H Neut % (Auto) 84.7 Lymph % (Auto) 6.2 [place] % (Auto) 8.1 Eos % (Auto) 0.0 Baso % (Auto) 0.2 Neut # (Auto) 14.52 H Lymph # (Auto) 1.1 [place] # (Auto) 1.4 H Eos # (Auto) 0.0 Baso # (Auto) 0.0 Nucleated RBC % (a uto) 0 Nucleated RBCs # 0.0 Sodium 137 Potassium 4.8 Chloride 100 Carbon Dioxide 26 Anion Gap 15.8 BUN 23 Creatinine 1.3 H GFR Calculation 40.7 L Glucose 166 H Calculated Osmolal ity 291 Calcium 8.5 Vitals: Last Vital Signs Temp 98.3 F 11/19/20 03:11 Pulse 101 H 11/19/20 05:54 Resp 20 H 11/19/20 03:11 BP 142/72 11/19/20 03:11 Pulse Ox 94 11/19/20 03:11 Discharge Plan Discharge Patient Disposition: Home Condition: Stable Prescriptions: Continued pantoprazole 40 mg tablet,delayed release (DR/EC) 40 mg PO BID RF: 0 acetaminophen [Tylenol Extra Strength] 500 mg tablet 500 mg PO Q6H PRN (Reason: Mild Pain (Scale Score 1-4)) RF: 0 baclofen 10 mg tablet 10 mg PO BID PRN (Reason: spasm ) Qty: 60 RF: 0 furosemide 40 mg tablet 40 mg PO DAILY PRN (Reason: Edema) RF: 0 lorazepam [Ativan] 0.5 mg tablet 0.5 mg PO DAILY PRN (Reason: anxiety) Qty: 1 RF: 0 metformin 500 mg tablet 500 mg PO BID RF: 0 Adult Aspirin Regimen 81 mg tablet,delayed release (DR/EC) 81 mg PO DAILY Qty: 90 RF: 3 clopidogrel 75 mg tablet 75 mg PO DAILY Qty: 90 RF: 4 ferrous sulfate 324 mg (65 mg iron) tablet,delayed release (DR/EC) 324 mg PO DAILY Qty: 30 RF: 4 diphenhydramine HCl [Benadryl Allergy] 25 mg tablet 50 mg PO DIRECTED PRN (Reason: allergy symptoms) Qty: 6 RF: 0 metoprolol succinate 25 mg PO BID RF: 0 Discharge Orders: Discharge Order (Routine); Ordered 11/19/20 Ordered By: Kasandra Brito Referrals: Kasandra Brito MD [Physician] - 12/30/20 2:45 pm (You have a cardiology Followup with Dr. Brito at [facility] [place] [facility] on December 30 at 2:45pm) Omaira Arzola FNP [Nurse Practitioner] - 11/26/20 10:45 am (You have a post Procedure Followup with MARIELLE Carr at [facility] on November 26 at 10:45am) Discharge Diet: Cardiac Discharge Activity: Resume usual activity Patient Instructions: Heart Healthy Diet, Left Heart Catheterization (DC) Discharge Attestations Time Spent in Discharge Care*: less than 30 min Specific Discharge Activities: educating patient Quality Metrics Clinical Quality Measures During this hospital stay, did patient experience: None Coding Level of Care Code Established Pt Acute Chg FW DC note Patient Type Established History Detailed Exam Detailed Medical Decision Making Moderate Complexity Diagnoses Chest pain R07.89 Chest pain type: other chest pain Coronary artery disease I25.10 Associated angina: without angina Coronary Disease-Associated Artery/Lesion type: [place] artery [place] vs. transplanted heart: [place] heart Atrial fibrillation I48.19 Atrial fibrillation type: persistent (not longstanding) Morbid (severe) obesity due to excess calories E66.01
[2020-11-19 11:46] VITALS: BP 135/88; BP 142/72; PULSE 101; RESP 18; RESP 20; TEMP 36.5; TEMP 36.8; O2SAT 94
== END 2020-11-19 12:20 | disposition home or self-care (01) ==
LOC: CCL 10:09 → CSU 10:29
PROVIDERS: PCP Family Medicine Geriatric Medicine; Visit Provider Internal Medicine Cardiovascular Disease
DX: R07.89 Other chest pain (principal); I48.91 Unspecified atrial fibrillation; Z85.3 Personal history of malignant neoplasm of breast; Z79.84 Long term (current) use of oral hypoglycemic drugs; I25.10 Atherosclerotic heart disease of native coronary artery without angina pectoris; E66.01 Morbid (severe) obesity due to excess calories; Z68.42 Body mass index [BMI] 45.0-49.9, adult; Z82.49 Family history of ischemic heart disease and other diseases of the circulatory system; Z83.3 Family history of diabetes mellitus
CPT/HCPCS: 36415; 80048; 85025; 85347; 85730; 93005; 93454; C1760; C1769; C1874; C1887; C1894; C9600; J0153; J0461; J1644; J1885; J1940; J2250; J2270; J2405; J3010; J3490; J7030; Q9967

== ENCOUNTER 2021-01-06 14:33 | Outpatient (CLI) | payer MEDICARE, MEDICAID, SELFPAY ==
--- NOTE | 2021-01-06 14:43 | XR_ITS ---
WS: [email or web address] Exam: XR chest 2V* [id number] Date/Time of Exam: 01/06/2021 2:49 PM Reason For Exam: I50.32 - Chronic diastolic (congestive) heart failure Comparison 11/30/2018. The lungs are fully expanded and clear. Heart size is within normal limits. Probable hiatal hernia no joelle. Signs of coronary artery stenting. No pleural effusions are seen. Regional bony elements are int act. XR/XR chest 2V* [id number] IMPRESSION: 1. No acute process noted. 2. Probable large hiatal hernia.
== END 2021-01-06 14:34 | disposition home or self-care (01) ==
PROVIDERS: PCP Family Medicine Geriatric Medicine; Visit Provider Nurse Practitioner Family
DX: I50.32 Chronic diastolic (congestive) heart failure (principal); I48.91 Unspecified atrial fibrillation
CPT/HCPCS: 71046; 80048; 80162; 83880

== ENCOUNTER → 2021-01-11 09:46 | Outpatient (BNVA) | payer MEDICARE, MEDICAID, SELFPAY | PROVIDERS: PCP Family Medicine Geriatric Medicine; Visit Provider Internal Medicine Cardiovascular Disease | DX: I48.19 Other persistent atrial fibrillation (principal); Z79.899 Other long term (current) drug therapy; Z79.82 Long term (current) use of aspirin | CPT/HCPCS: 80162 ==

== ENCOUNTER 2021-02-01 07:40 | Outpatient (CLI) | payer MEDICARE, MEDICAID, SELFPAY ==
--- NOTE | 2021-02-01 07:48 | US_ITS ---
WS: [id number] ULTRASOUND ABDOMEN CLINICAL INFORMATION: ABDOMINAL PAIN COMPARISON: None. FINDINGS: Technically difficult examination due to body habitus Liver Size: Enlarged Craniocaudal length: 16.1 cm. Echogenicity: Coarse Surface nodularity: None. Mass (size and location): None. Bile ducts Intrahepatic ducts: Normal. Common bile duct diameter: 0.4 cm. Gallbladder Contracted Gallstones: None. Gallbladder sludge: None. Gallbladder wall thickening: None. Pericholecystic fluid: None. Sonographic Miller sign: Absent. Pancreas Normal as visualized. Spleen Splenomegaly: None. Craniocaudal length: 10.4 cm. Right kidney: Normal. Hydronephrosis: None. Size: 10.1 cm x 6.1 cm x 3.6 cm Left kidney: Left renal cyst measuring 8.7 x 6.8 x 9.6 mm Hydronephrosis: None. Size: 8.6 cm x 4.7 cm x 4.4 cm. Abdominal aorta and IVC Visualized portions are normal. Ascites: None. US/US abdomen complete* [id number] IMPRESSION: Technically difficult examination due to body habitus 1. Left renal cyst measuring 8.7 x 6.8 x 9.6 mm 2. Hepatomegaly with diffuse fatty infiltration. 3. Gallbladder is contracted. 4. No hydronephrosis in either kidney.
== END 2021-02-01 07:41 | disposition home or self-care (01) ==
LOC: US 07:44
PROVIDERS: PCP Family Medicine; Visit Provider Family Medicine
DX: R10.9 Unspecified abdominal pain (principal); N28.1 Cyst of kidney, acquired; R16.0 Hepatomegaly, not elsewhere classified; K76.0 Fatty (change of) liver, not elsewhere classified
CPT/HCPCS: 76700

== ENCOUNTER 2021-03-24 09:34 | Outpatient (CLI) | payer MEDICARE, MEDICAID, SELFPAY ==
--- NOTE | 2021-03-24 09:44 | XR_ITS ---
WS: [email or web address] PARANASAL SINUSES TECHNIQUE: Abel Mcintosh and lateral views HISTORY: CHRONIC SINUS PRESSURE/NOSE BLEEDS COMPARISON: None available. Paranasal sinuses are well aerated. No air-fluid levels. No osseous destruction. Visualized portions of the adjacent bones are normal. No deviation of the odalys al septum. XR/XR sinus min 3V* [id number] IMPRESSION: Normal paranasal sinus films.
== END 2021-03-24 09:35 | disposition home or self-care (01) ==
PROVIDERS: PCP Family Medicine; Visit Provider Family Medicine
DX: J32.9 Chronic sinusitis, unspecified (principal); R04.0 Epistaxis
CPT/HCPCS: 70220

== ENCOUNTER 2021-05-26 08:11 | Outpatient (RCR) | payer MEDICARE, MEDICAID, SELFPAY | END 2021-06-14 23:59 | disposition home or self-care (01) | LOC: SPT 08:11 | PROVIDERS: PCP Family Medicine; Referring Provider Otolaryngology; Visit Provider Otolaryngology | DX: R42 Dizziness and giddiness (principal); H81.11 Benign paroxysmal vertigo, right ear | CPT/HCPCS: 95992; 97162 ==

== ENCOUNTER 2021-06-15 06:00 | Outpatient (RCR) | payer MEDICARE, MEDICAID, SELFPAY | END 2021-07-12 23:59 | disposition home or self-care (01) | LOC: SPT 06:00 | PROVIDERS: PCP Family Medicine; Referring Provider Otolaryngology; Visit Provider Otolaryngology | DX: R42 Dizziness and giddiness (principal); H81.11 Benign paroxysmal vertigo, right ear | CPT/HCPCS: 95992 ==

== ENCOUNTER 2021-08-04 08:21 | Outpatient (CLI) | payer MEDICARE, MEDICAID, SELFPAY ==
--- NOTE | 2021-08-04 08:33 | XR_ITS ---
WS: [email or web address] Cervical spine, 5 views including AP, AP odontoid, lateral and both obliques, 08/04/2021 Clinical Data: CHRONIC NECK PAIN Comparison: Cervical spine, 05/06/2019. Findings: No compression fractures are seen. There is disc space narrowing at C5-C6 and C6-C7 with an terior osteophyte formation. There is loss of the normal lordotic curvature. The oblique films show n o obvious foraminal encroachment. There is no prevertebral soft tissue swelling. The odontoid is unre markable. The soft tissues of the neck and the lung apices are normal. XR/XR cervical spine 4-5V [id number] Impression: 1. Degenerative disc narrowing at C5-C6 and C6-C7. 2. Anterior osteophytes at C5-C7.
--- NOTE | 2021-08-04 08:34 | XR_ITS ---
WS: [email or web address] AP pelvis, 2 views of both hips, 08/04/2021 Clinical Data: BILATERAL HIP PAIN Comparison: Pelvis and both hips, 11/28/2018. Findings: Pelvis: The SI joints and pubic symphysis are normal. There are no fractures. The soft tissues are normal. Th e hips are unremarkable. Right hip: There are no fractures or dislocations. The joint space shows no erosion, sclerosis, narrowing or fra gmentation of the right femoral head. Left hip: There are no fractures or dislocations. The joint space shows no erosion, sclerosis, narrowing or fra gmentation of the left femoral head. XR/XR hip BI m 5V wo/w pel* [id number] Impression: Negative pelvis and both hips.
--- NOTE | 2021-08-04 08:34 | XR_ITS ---
WS: [email or web address] Thoracic spine, 3 views, 08/04/2021 Clinical Data: CHRONIC BACK PAIN Comparison: None. Findings: Osteoarthritic spurring of all the thoracic vertebral bodies is moderate. Paravertebral regions are n ormal. XR/XR thoracic spine 3V* [id number] Impression: Moderate osteoarthritis of the thoracic vertebral bodies.
--- NOTE | 2021-08-04 08:36 | XR_ITS ---
WS: [email or web address] Lumbar spine, 3 views, 08/04/2021 Clinical Data: CHRONIC BACK PAIN Comparison: Lumbar spine, 10/03/2019. Findings: No compression fractures or subluxation is seen. There is multilevel disc degeneration with osteoarth ritic spurring L2-L5.The transverse processes and SI joints are normal. XR/XR lumbar spine 2-3V* [id number] Impression: 1. Multilevel degenerative disc narrowing. 2. Osteoarthritis L2-L5.
== END 2021-08-04 08:22 | disposition home or self-care (01) ==
PROVIDERS: PCP Family Medicine; Visit Provider Family Medicine
DX: M25.551 Pain in right hip (principal); M25.552 Pain in left hip; M54.2 Cervicalgia; M47.816 Spondylosis without myelopathy or radiculopathy, lumbar region; M47.814 Spondylosis without myelopathy or radiculopathy, thoracic region; M25.78 Osteophyte, vertebrae
CPT/HCPCS: 72050; 72072; 72100; 73523

== ENCOUNTER 2021-08-13 06:00 | Outpatient (RCR) | payer MEDICARE, MEDICAID, SELFPAY | END 2021-09-11 23:59 | disposition home or self-care (01) | LOC: SPT 06:00 | PROVIDERS: PCP Family Medicine; Referring Provider Otolaryngology; Visit Provider Otolaryngology | DX: H81.11 Benign paroxysmal vertigo, right ear (principal) | CPT/HCPCS: 95992; 97162 ==

== ENCOUNTER → 2021-10-04 13:32 | Outpatient (BNVA) | payer MEDICARE, MEDICAID, SELFPAY | PROVIDERS: PCP Family Medicine; Visit Provider Internal Medicine Cardiovascular Disease | DX: I48.19 Other persistent atrial fibrillation (principal); I25.10 Atherosclerotic heart disease of native coronary artery without angina pectoris; I50.32 Chronic diastolic (congestive) heart failure; E11.9 Type 2 diabetes mellitus without complications; E66.01 Morbid (severe) obesity due to excess calories; Z68.42 Body mass index [BMI] 45.0-49.9, adult; Z79.84 Long term (current) use of oral hypoglycemic drugs | CPT/HCPCS: 99214 ==

== ENCOUNTER 2021-10-12 08:40 | Outpatient (CLI) | payer MEDICARE, MEDICAID, SELFPAY ==
--- NOTE | 2021-10-12 09:11 | MM_ITS ---
WS: [email or web address] Bilateral diagnostic 3D tomosynthesis digital mammogram, 10/12/2021 Clinical Data: HX OF BREAST CA Comparison: 03/13/2020, 03/07/2019, 01/31/2018, 01/19/2017, 11/03/2015, 09/26/2014, 09/06/2013, 05/28/2012, 05/17/2011, 03/31/2010, 07/18/2008, 07/10/2007, 05/23/2006. Findings: The left breast is smaller than the right as a result of therapy. There are scattered vascular calcif ications in both breasts. There are scattered benign calcifications in the left breast. The left temitope st also shows skin thickening. Neither breast shows spiculated masses or clustered calcifications. MM/[place] [id number] Impression: 1. Negative right breast unchanged. 2. Negative left breast with the changes of previous therapy. 3. Recommend annual mammograms. BIRADS: 2-Benign FOLLOW UP: 1 Year Follow-up The CAD loom checker was used.
== END 2021-10-12 08:41 | disposition home or self-care (01) ==
LOC: RAD 08:42
PROVIDERS: PCP Family Medicine; Visit Provider Family Medicine
DX: Z85.3 Personal history of malignant neoplasm of breast (principal)
CPT/HCPCS: 77062

== ENCOUNTER 2022-01-14 13:28 | Outpatient (CLI) | payer MEDICARE, MEDICAID, SELFPAY ==
--- NOTE | 2022-01-14 14:02 | XR_ITS ---
WS: [email or web address] Exam: XR knee LT 3V* [id number] Date/Time of Exam: 01/14/2022 2:18 PM Reason For Exam: LEFT KNEE PAIN No acute fracture or dislocation noted. No joint effusion noted. Mild spurring of the posterior soto la. There may be loose joint bodies. The medial lateral compartments are relatively well maintained. XR/XR knee LT 3V* [id number] IMPRESSION: 1. No fracture or joint effusion. 2. Mild degenerative changes. Possible loose joint bodies.
--- NOTE | 2022-01-14 14:02 | XR_ITS ---
WS: [email or web address] Exam: XR knee RT 3V* [id number] Date/Time of Exam: 01/14/2022 2:18 PM Reason For Exam: R KNEE PAIN Comparison 11/08/2016. Moderate tricompartmental DJD. Deformity of the lateral tibial plateau that might represent previous fracture. Spurring of the posterior patella. No significant joint effusion. XR/XR knee RT 3V* [id number] IMPRESSION: 1. Moderate tricompartmental DJD. No fracture or joint effusion. 2. Deformity of the lateral tibial plateau that might represent old fracture.
== END 2022-01-14 13:29 | disposition home or self-care (01) ==
LOC: RAD 13:32
PROVIDERS: PCP Family Medicine; Visit Provider Family Medicine
DX: R10.9 Unspecified abdominal pain (principal); M25.562 Pain in left knee; M17.11 Unilateral primary osteoarthritis, right knee
CPT/HCPCS: 73562

== ENCOUNTER 2022-02-07 06:06 | Outpatient (CLI) | payer MEDICARE, MEDICAID, SELFPAY ==
--- NOTE | 2022-02-07 06:15 | US_ITS ---
WS: [email or web address] Complete ABDOMINAL ULTRASOUND HISTORY: ABD PAIN AND NAUSEA COMPARISON: 02/01/2021 Liver: Liver is moderately enlarged measuring greater than 16 cm in length. Similar to the prior stud y. Diffuse coarse echotexture. The surface of the liver is slightly irregular suggesting changes of c irrhosis. No mass or bile duct dilatation. cm in length. Liver is normal size and echogenicity with n o mass or intrahepatic dilatation. Portal Vein: Not well visualized. Gallbladder: Normal size gallbladder. Gallbladder shape is redundant. No stones or wall thickening. Gallbladder wall thickness: 0.2 cm. Pancreas: Not visualized. CBD: 0.5 cm. Right kidney: 9.4 cm x 4.7 cm x 4.3 cm. No mass, cortical thickening or hydronephrosis. Left kidney: 9.7 cm x 4.4 cm x 4.4 cm. No mass, cortical thickening or hydronephrosis. Previous the described cyst is not evident. Spleen: Normal size and echogenicity. Normal size at 10.8 cm in length. Aorta and IVC are not well visualized. No ascites. US/US abdomen complete* [id number] IMPRESSION: 1. Technically limited evaluation of the abdominal structures by ultrasound du e to body habitus. 2. Moderate hepatomegaly and hepatic steatosis. Changes of early cirrhosis martha pected. 3. No cholelithiasis. The gallbladder is slightly redundant but no wall thicke kelsey or bile duct obstruction.
== END 2022-02-07 06:07 | disposition home or self-care (01) ==
LOC: RAD 06:06
PROVIDERS: PCP Family Medicine; Visit Provider Family Medicine
DX: R10.9 Unspecified abdominal pain (principal); R11.0 Nausea; K76.0 Fatty (change of) liver, not elsewhere classified; R16.0 Hepatomegaly, not elsewhere classified
CPT/HCPCS: 76700

== ENCOUNTER 2022-04-11 09:45 | Outpatient (CLI) | payer MEDICARE, MEDICAID, SELFPAY ==
--- NOTE | 2022-04-11 10:00 | XR_ITS ---
WS: [email or web address] XR shoulder RT min 2V* [id number] REASON FOR EXAM: R SHOULDER PAIN FINDINGS: No fracture or focal bone lesion. Severe narrowing of the joint space with subchondral sclerosis and significant marginal osteophytosis of the acromioclavicular joint. Compared to the previous examination of 05/20/2019, there has been significant superior displacement of the humeral head with significant narrowing of the acromial humeral head interval. There is mild narrowing of the glenohumeral joint with subchondral sclerosis of the glenoid and small marginal osteophytosis of the humeral head. XR/XR shoulder RT min 2V* [id number] IMPRESSION: Significant osteoarthritis of the acromioclavicular joint with large marginal o steophytosis most notably along the inferior aspect of the clavicle. This is as sociated with significant decrease in the acromial humeral head interval which implies complete or near complete tear of the rotator cuff tendon.
--- NOTE | 2022-04-11 10:00 | XR_ITS ---
WS: [email or web address] XR shoulder LT min 2V* [id number] REASON FOR EXAM: L SHOULDER PAIN FINDINGS: The acromial clavicular joint spaces relatively well-preserved. However, there is significant margina l osteophytosis. There is mild narrowing of the glenohumeral joint with subarticular sclerosis of the glenoid and smal l marginal osteophytosis of the humeral head. There is moderate subchondral sclerosis and cystic change in the greater tuberosity. XR/XR shoulder LT min 2V* [id number] IMPRESSION: Osteoarthritis in the acromioclavicular and glenohumeral joint as above. Moderate rotator cuff tendon arthropathy.
--- NOTE | 2022-04-11 10:01 | XR_ITS ---
WS: [email or web address] XR knee RT 3V* [id number] REASON FOR EXAM: RT KNEE PAIN FINDINGS: There is deformity of the lateral tibial plateau compatible with old healed tibial plateau fracture. This is associated with moderate changes of osteoarthritis in the lateral knee joint compartment with subchondral sclerosis, narrowing of the joint space, and marginal osteophytosis. The medial knee joint compartment is relatively well preserved with mild subchondral sclerosis and sm all marginal osteophytosis. There is moderate narrowing of the patellofemoral joint space with moderate subchondral sclerosis and osteophytosis of the patella and femoral condyles. XR/XR knee RT 3V* [id number] IMPRESSION: Osteoarthritis in the lateral knee joint compartment secondary to previous tibi al plateau healed fracture. Moderate changes of osteoarthritis in the patellofe moral joint space. Examination is relatively unchanged compared to 2021.
--- NOTE | 2022-04-11 10:01 | XR_ITS ---
WS: [email or web address] XR knee LT 3V* [id number] REASON FOR EXAM: LEFT KNEE PAIN FINDINGS: No fracture or focal bone lesion. Medial and lateral knee joint spaces are relatively well-preserved. There is marginal osteophytosis o f the medial and lateral knee joint spaces. Mild subchondral sclerosis in the medial and lateral knee joint spaces. There is also elongation of the tibial eminences. Moderate narrowing of the patellofemoral joint space with subchondral sclerosis and marginal osteophy tosis of the patella and femoral condyles. XR/XR knee LT 3V* [id number] IMPRESSION: Osteoarthritis of the left knee as above.
[2022-04-11 15:12] LABS: Basophils # 0.1 10^3/uL (0.0-0.1); Basophils % 0.6 %; Eosinophils # 0.1 10^3/uL (0.0-0.8); Eosinophils % 0.5 %; Hematocrit 43.7 % (37.0-47.0); Lymphocytes % 15.8 %; Mean Corpuscular Hemoglobin 28.6 pg (28.0-34.0); Mean Corpuscular Volume 89.4 fl (81-99); Mean Platelet Volume 11.5 fL (7.4-10.4); Monocytes # 0.7 10^3/uL (0.2-0.9); Monocytes % 5.1 %; Neutrophils # 9.61 10^3/uL (1.8-7.7); Nucleated Red Blood Cells % 0 %; Platelet Count 223 10^3/cmm (130-400); Red Blood Count 4.89 10^6/uL (4.1-5.3); Red Cell Distribution Width 14.6 % (12.1-15.1); White Blood Count 12.8 10^3/uL (4.0-10.0)
[2022-04-11 15:41] LABS: Digoxin 0.4 ng/mL (0.6-1.2)
[2022-04-11 15:54] LABS: Alanine Aminotransferase 44 U/L (0-33); Albumin Level 3.9 g/dL (3.5-5.2); Alkaline Phosphatase 124 U/L (35-105); Anion Gap 18.2 (5-19); Aspartate Amino Transferase 27 U/L (0-32); Blood Urea Nitrogen 26 mg/dL (8-23); Calcium 9.6 mg/dL (8.5-10.5); Carbon Dioxide 23 mmol/L (22-29); Chloride 100 mmol/L (98-107); Glomerular Filtration Rate 62.1 mL/min (90-130); Glucose 155 mg/dL (65-115); Magnesium 1.8 mg/dL (1.7-2.3); NT Pro B Type Natriuretic Pept 598 pg/mL (0-125); Osmolality Calculated 292 mOsm/kg (285-295); Potassium 4.2 mmol/L (3.5-5.1); Sodium 137 mmol/L (136-145); Total Bilirubin 0.4 mg/dL (0.15-1.2); Total Protein 6.9 g/dL (6.6-8.7)
== END 2022-04-11 09:46 | disposition home or self-care (01) ==
LOC: RAD 09:50
PROVIDERS: Internal Medicine Cardiovascular Disease; PCP Family Medicine; Visit Provider Family Medicine
DX: I25.10 Atherosclerotic heart disease of native coronary artery without angina pectoris (principal); I48.19 Other persistent atrial fibrillation; I50.32 Chronic diastolic (congestive) heart failure; R06.02 Shortness of breath; M17.0 Bilateral primary osteoarthritis of knee; M25.512 Pain in left shoulder; M19.012 Primary osteoarthritis, left shoulder; M19.011 Primary osteoarthritis, right shoulder; R07.9 Chest pain, unspecified; R94.31 Abnormal electrocardiogram [ECG] [EKG]; E66.01 Morbid (severe) obesity due to excess calories; Z68.42 Body mass index [BMI] 45.0-49.9, adult
CPT/HCPCS: 73030; 73562; 80053; 80162; 83735; 83880; 85025; 99214

== ENCOUNTER 2022-04-14 06:00 | Outpatient (RCR) | payer MEDICARE, MEDICAID, SELFPAY | END 2022-05-14 23:59 | disposition home or self-care (01) | LOC: GPT 06:00 | PROVIDERS: PCP Family Medicine; Visit Provider Orthopaedic Surgery | DX: M75.121 Complete rotator cuff tear or rupture of right shoulder, not specified as traumatic (principal); M25.511 Pain in right shoulder; M19.011 Primary osteoarthritis, right shoulder | CPT/HCPCS: 97110; 97112; 97140; 97162; 97530 ==

== ENCOUNTER → 2022-04-20 13:44 | Outpatient (BNVA) | payer MEDICARE, MEDICAID, SELFPAY | PROVIDERS: PCP Family Medicine; Referring Provider Family Medicine; Visit Provider Orthopaedic Surgery | DX: M12.812 Other specific arthropathies, not elsewhere classified, left shoulder (principal); M67.912 Unspecified disorder of synovium and tendon, left shoulder | CPT/HCPCS: 99204 ==

== ENCOUNTER → 2022-04-25 16:34 | Outpatient (BNVA) | payer MEDICARE, MEDICAID, SELFPAY | PROVIDERS: PCP Family Medicine; Visit Provider Family Medicine | DX: I48.19 Other persistent atrial fibrillation (principal); I50.32 Chronic diastolic (congestive) heart failure; R07.9 Chest pain, unspecified | CPT/HCPCS: 80048; 85025; 85610 ==

== ENCOUNTER 2022-04-27 06:54 | Outpatient (CLI) | payer MEDICARE, MEDICAID, SELFPAY ==
[2022-04-27] VITALS (19 sets, daily range): BP systolic 104–152; BP diastolic 81–112; PULSE 83–98; RESP 12–19; TEMP 36.6; O2SAT 93–100; BMI 45.3; BMI 35.6
--- NOTE | 2022-04-27 08:30 | XACV_ITS ---
Exam Room: 2 Ht: 140 cm Wt: 88 kg BSA: 1.92 m2 Gender: Female : 1950 Any Known Allergies: Other Exam Priority: Routine Procedure(s): Procedure Description: Diagnostic procedure Procedure Description: Left Heart Catheterization Diagnostic Cath Status: Elective Diagnostic Findings * 71 year old female with h/o CAD s/p LAD and RCA stents. She presented with worsening SOB and chest pains. Given prior moderate circumflex lesion, decision was made to proceed with [facility]. * Angiography shows a right coronary dominant system. * Normal left main with no disease. * Small to medium caliber left anterior descending artery with patent mid LAD stent. * Medium caliber circumflex artery with 50% stenosis in mid circumflex. * Medium caliber right coronary artery with no significant stenosis. Patent proximal to mid right coronary artery stents. * Case was discussed and images were reviewed with Dr. Branham. He took over the case at this time. Interventional Findings * Procedure detail: We engaged left main artery with XB 3.0 guide catheter. IV heparin was administered to maintain ACT above 250 s. After normalization, IFR wire was put in distal vessel. iFR value of 0.98 was obtained that was nonischemic. At this time final angiogram was performed that showed no significant changes. iFR wire and guide catheter were removed. Patient left the Director Of Group Sales in a stable condition.. Conclusions 1. Patent LAD and right coronary artery stents. 2. Moderate mid circumflex stenosis s/p IFR that was nonischemic with a value of 0.98. Recommendations * Return to inpatient for close monitoring and routine cath care. * Risk factor modification for secondary prevention. * Statin and aspirin 81mg lifelong, if tolerated. Interventional RX Recommendation: medical therapy and/or counseling Anticoagulation: Heparin Pressures Phase:Rest AO : 98 / 67 ( 82 ) @ 9:58:00 AM 83 / 71 ( 78 ) @ 10:00:00 AM 86 / 56 ( 69 ) @ 10:28:00 AM Clinical Evaluation EBL: 5mL-10mL Procedural Details Procedure Consent Obtained. Admit Source: Out Patient. Pre-Procedure Time Out. Identified patient by full name and date of as verbalized by the patient/guarantor. Does the consent match the physician's order: Yes. Accurate & Complete Informed Consent: Yes. Inpatient/Outpatient History & Physical on Chart: Yes. If H&P is completed, is and addenduem needed: No; If yes, is the addendum complete: N/A. Visualize and Verify Site with Patient/Guarantor: N/A. Relevant Radiology Images available: N/A. The risks, benefits, and alternatives of sedation and/or procedure were discussed by physician. The patient agrees to continue. Procedure started. [facility] Clinical Fraility Score: 4: Vulnerable. Director Of Group Sales Indications: Worsening Angina. Chest Pain Symptom Assessment: Atypical Angina. Cardiovascular Instability: No,. Correct patient, site and procedure confirmed by cath team. PERRLA. Strong, equal hand php consultant bilaterally. Lungs clear x 5 lobes. IV Site on Arrival: 22 gauge in the right hand. Pre Procedural Pulses: bilateral radial was 3+. Pre Procedural Pulses: bilateral dorsalis pedis was Doppled. Pre Procedural Pulses: bilateral posterior tibial was Doppled. Oxygen started at 2liters/min via nasal canula. right groin was prepped with chloroprep then draped in the usual sterile fashion. left groin was prepped with chloroprep then draped in the usual sterile fashion. Physician notified. Baseline sample Acquired. HR: 90 BPM. Physician arrived. Physician scrubbed in. Immediate Pre-Procedure Time Out. Correct Patient: Yes; Correct Procedure: Yes; Correct Site: Yes; Correct Patient Position: Yes; Correct Supplies: Yes; Dried Flammable Prep: Yes; Blood Products Available: N/A;. Physician requesting ultrasound for assist in access. Lidocaine 1% infiltrated to the right groin. Arterial access obtained with micropuncture set. Wire unable to cross. Wire and introducer out. Manual pressure held by Dr. Thomas. Ultrasound used for assist in access. Arterial access obtained with micropuncture set. Wire unable to cross. Wire and introducer out. Arterial access obtained with micropuncture set. Dr. Branham called to assist in obtaining arterial access. Wire unable to cross. Wire and introducer out. Dr Branham arrived to assist. Physician scrubbed in. Dr. Branham using ultrasound to assist in access. Arterial access obtained with micropuncture set. Lidocaine 1% infiltrated to the left groin. A 5 sao tomean JL4 catheter in over wire. Dr. Branham scrubbed out. Multiple views taken of left coronary artery. Catheter removed over the standard wire. A 5 sao tomean JR4 catheter in over wire. Multiple views taken of right coronary artery. Catheter removed over the standard wire. Dr Branham called. Physician review of cine films. Side port of sheath attached to heparinized Normal Saline flush at KVO to maintain patency. Physician scrubbed in. A Left femoral angiogram was performed to determine safe placement of closure device. 6 sao tomean XB 3 guide catheter was inserted over the wire. FFR guidewire was advanced through the guide catheter to lesion in the mid Circ. IFR results 0.98. Wire out. Guide catheter out. ACT drawn. Results 259 seconds. Therapeutic limits - pre-heparin administration 90-150 seconds and monitoring heparin during a vascular procedure >250 seconds. Standard wire in over sheath. A Suture was successful obtaining hemostatsis at the Left Femoral artery insertion site. 6Fr sheath back in over wire. A Left femoral angiogram was performed to determine safe placement of closure device. Sheath(s) sutured into position with 2-0 silk and sterile 4x4's and Op-site applied over the site. No oozing or signs and symptoms of hematoma noted. Post Procedure: Pulses reassessed and unchanged. PERRLA. Strong, equal hand php consultant bilaterally. No VTE prophylaxis required. Medication's Wasted: Heparin = 4000 units. Total IV fluids: 143 mL. Post-op diagnosis: moderate circ stenosis, IFR negative for ischemia. Complications: none. Estimated blood loss: 5mL-10mL. Responsiveness - Normal response to verbal stimuli; alert and oriented, PERRLA. Airway - Unaffected, no intervention required; spontaneous ventilation. Circulation: W/N/L, pulses unchanged. Nausea/Vomiting: No. Procedure completed. Patient transferred by bed to CPRU. Vital chart was stopped. Access Site Site: Left Femoral artery Sheath Size: 6 Fr Hemostasis Method: Suture Hemostasis Success: Successful Procedure Medications Start: 8:52 AM Stop: 8:52 AM Medication: Versed Amount: 1 mg Route: I.V. Start: 8:52 AM Stop: 8:52 AM Medication: Fentanyl Amount: 50 mcg Route: I.V. Start: 9:01 AM Stop: 9:01 AM Medication: Versed Amount: 1 mg Route: I.V. Start: 9:02 AM Stop: 9:02 AM Medication: Fentanyl Amount: 25 mcg Route: I.V. Start: 9:19 AM Stop: 9:19 AM Medication: Versed Amount: 1 mg Route: I.V. Start: 9:29 AM Stop: 9:29 AM Medication: Fentanyl Amount: 25 mcg Route: I.V. Start: 9:30 AM Stop: 9:30 AM Medication: Versed Amount: 1 mg Route: I.V. Start: 9:54 AM Stop: 9:54 AM Medication: Versed 1 mg and Fentanyl 25 mcg Amount: 1 Start: 10:20 AM Stop: 10:20 AM Medication: Versed 1 mg and Fentanyl 25 mcg Amount: 1 Start: 10:23 AM Stop: 10:23 AM Medication: Heparin Amount: 5000 units Start: 10:33 AM Stop: 10:33 AM Medication: Fentanyl Amount: 25 mcg Route: I.V. Start: 10:48 AM Stop: 10:48 AM Medication: Fentanyl Amount: 25 mcg Route: I.V. I, the attending physician, have reviewed and verified all procedure medications. Yes, all medications given per verbal order History/Risk Factors Hypertension: Yes Dyslipidemia: No Peripheral Arterial Disease (PAD): No Myocardial Infarction (AL): No Obesity: Yes Tobacco Use: Never Prior Interventions PCI: Yes CABG: No Valve Surgery: No Date of PCI: 11/17/2020 Report Signatures Interventional Workflow Finalized by Mykel Branham MD on 05/08/2022 11:48 AM Diagnostic Workflow Finalized by Ludy Thomas MD on 05/07/2022 03:08 PM
--- NOTE | 2022-04-27 08:48 | W.PM.OPSUD ---
Surgery/Procedure H&P Update DATE OF PROCEDURE: April 27, 2022 DATE H&P PERFORMED: 04/11/22 H&P UPDATE INFORMATION: I have reviewed H&P completed within last 30 days, I have examined patient prior to procedure and No changes to prior documentation PREOP DIAGNOSIS: Worsemning chest pain, SOB, known CAD PLANNED PROCEDURE: Operation Date: 04/27/22 08:30 Proposed Procedures p [facility] w/wo 35416 I25.10,R06.02,R07.9(Left) - Ludy Thomas MD PATIENT REASSESSED PRIOR TO SEDATION, WITH NO CHANGE NOTED: Yes PHYSICAL EXAM: alert, oriented x 3, clear to auscultation bilaterally and regular rate & rhythm AIRWAY EVAL/ANESTHESIA PLAN: normal airway, ASA III, Monitored Anesthesia, Local Anesthesia, Risks, benefits & alternatives of sedation and/or procedure discussed and Patient agrees to continue as planned
--- NOTE | 2022-04-27 10:55 | SUR.PHASEI ---
Post Cath Note Received patient from the lab status post cardiac catheterization via the left femoral approach. Pressure bag in place. No hematoma formation noted. Call light placed within reach. Informed to call for needs.
--- NOTE | 2022-04-27 11:21 | SUR.PHASEI ---
Post op IVF rate 100 ml/hr. 0.9% NS.
--- NOTE | 2022-04-27 12:05 | SUR.PHASEI ---
ACT DRAWN. Results pending.
--- NOTE | 2022-04-27 12:07 | SUR.PHASEI ---
ACT RESULT IS 217. Will Redraw at 1300.
--- NOTE | 2022-04-27 13:16 | SUR.PHASEI ---
ACT DRAWN. RESULTS PENDING.
--- NOTE | 2022-04-27 13:23 | SUR.PHASEI ---
ACT RESULT IS 171 SECONDS. TO REDRAW AT 1415.
[2022-04-27 15:04] LABS: Partial Thromboplastin Time 55.2 SECONDS (23.9-36.7)
[2022-04-27] MEDS: sodium chloride 0.9% 1,000 ML 75 ML IV (16:03)
--- NOTE | 2022-04-27 17:31 | USCV_ITS ---
Waleska Celis Age: 71 Gender: F : 1950 Exam Date: 04/27/2022 18:12 Ordering Phys: Ludy Thomas MD ([email or web address]) Technologist: SATINDER Exam Location: [facility] [place] Indication: SOB CP BP: 144 / 104 HR: 89 Rhythm: Sinus Technical Quality: Adequate with Optison MEASUREMENTS (Male / Female) Normal Values 2D ECHO LV Diastolic Diameter PLAX 3.5 cm 4.2 - 5.9 / 3.9 - 5.3 cm LV Systolic Diameter PLAX 2.1 cm IVS Diastolic Thickness 1.2 cm 0.6 - 1.0 / 0.6 - 0.9 cm IVS Systolic Thickness 1.3 cm LVPW Diastolic Thickness 1.0 cm 0.6 - 1.0 / 0.6 - 0.9 cm LVPW Systolic Thickness 0.9 cm LVOT Diameter 1.8 cm LV Ejection Fraction 2D Teich 71.1 % LV Ejection Fraction MOD 2C 63.4 % LV Ejection Fraction 2C AL 63.7 % LA Diameter 3.5 cm LA Width 3.6 cm LA Height 4.9 cm RA Width 3.0 cm RA Height 3.7 cm Aorta at Sinotubular Diameter 2.5 cm IVC Diameter 1.8 cm M-MODE Aortic Annulus Diameter 2.3 cm LA Ao Ratio MM 1.6 MV E Point Septal Separation 0.3 cm DOPPLER AV Peak Velocity 162.0 cm/s LVOT Peak Velocity 103.0 cm/s AV Area Cont Eq vti 1.5 cm squared AV Area Cont Eq pk 1.6 cm squared MV Area PHT 4.7 cm squared Mitral E to A Ratio 0.8 MV E' Velocity 47.0 cm/s Mitral E to MV E' Ratio 10.3 Mitral E to LV E' Lateral Ratio 11.9 Mitral E to LV E' Septal Ratio 9.0 TR Peak Velocity 221.7 cm/s TR Peak Gradient 19.7 mmHg TV Peak E Velocity 44.0 cm/s Right Atrial Pressure 5.0 mmHg Pulmonary Artery Systolic Pressu 24.7 mmHg PV Peak Velocity 74.0 cm/s RV Acceleration Time 0.1 s RV Ejection Time 0.3 s RV AcT/ET 0.4 FINDINGS Left Ventricle This study is poor in quality. Echo contrast, Optison on was utilized. With this imaging capability, the ventricle appears normal in size and function. The ejection fraction is about 60%. Grade 1 diastolic dysfunction. Right Ventricle Normal right ventricular size and systolic function. Normal right ventricular systolic pressure. Right Atrium The right atrium is normal in size. Left Atrium The left atrium is normal in size. Mitral Valve Structurally normal mitral valve. Trace mitral valve regurgitation. Aortic Valve Structurally normal trileaflet aortic valve. Mild aortic valve calcification. Mild aortic valve stenosis, mean gradient 4.7 mmHg, DOMITILA 1.5 cm squared. No aortic valve regurgitation. Tricuspid Valve Structurally normal tricuspid valve. Trace tricuspid valve regurgitation. Pulmonic Valve Pulmonic valve not well visualized. Pericardium Normal pericardium without effusion. Aorta Normal ascending aorta dimension. IVC The inferior vena cava appears normal. CONCLUSIONS This study is poor in quality. Echo contrast, Optison on was utilized. With this imaging capability, the ventricle appears normal in size and function. The ejection fraction is about 60%. Grade 1 diastolic dysfunction. Structurally normal mitral valve. Trace mitral valve regurgitation. Structurally normal trileaflet aortic valve. Mild aortic valve calcification. Mild aortic valve stenosis, mean gradient 4.7 mmHg, DOMITILA 1.5 cm squared. No aortic valve regurgitation. No significant change from the previous study dictated 12/27/2019. Dr. Steffen Monge MD (Electronically Signed) Final Date: 28 April 2022 09:40 S
[2022-04-27 18:21] LABS: Glucose Point of Care 117 mg/dL (70-110)
[2022-04-27] MEDS: metoprolol tartrate 25 mg Tablet PO (18:21)
[2022-04-27] MEDS: prednisoLONE 1% Op Susp 5 mL Btl 2 DROP EYE-BOTH (18:21)
--- NOTE | 2022-04-27 19:19 | PC.NURSE ---
REcieved patient from cathodic protection technician staff at 1615. BP: 146/108, HR: 89, 98%spo2 on room air, RR of 24, Temp of 96.9 axillary. Patient is lethargic, confused, and asking for her friend Sho.
--- NOTE | 2022-04-27 19:21 | PC.NURSE ---
Sheath to left groin removed at 1740 by Micheline Stinson RN. No hematoma formation, no bleeding. Patient has been educated on need to lay flat for 6 hours.
[2022-04-27] MEDS: fentaNYL 50 mcg/mL INJ 2mL 12.5 MCG IVP (20:49)
[2022-04-28 04:06] LABS: Blood Urea Nitrogen 21 mg/dL (8-23); Calcium 8.5 mg/dL (8.5-10.5); Carbon Dioxide 22 mmol/L (22-29); Chloride 108 mmol/L (98-107); Glomerular Filtration Rate 62.1 mL/min (90-130); Glucose 124 mg/dL (65-115); NT Pro B Type Natriuretic Pept 1066 pg/mL (0-125); Osmolality Calculated 296 mOsm/kg (285-295); Sodium 141 mmol/L (136-145)
[2022-04-28 04:19] LABS: Anion Gap 15.5 (5-19); Potassium 4.5 mmol/L (3.5-5.1)
[2022-04-28 05:24] VITALS: PULSE 82
[2022-04-28] MEDS: perflutren protein-a microsphr 0.22 mg/mL SDV 3 mL IV (05:47)
[2022-04-28] MEDS: sodium chloride 0.9% 1,000 ML 75 ML IV (07:13)
[2022-04-28 08:13] LABS: Glucose Point of Care 135 mg/dL (70-110)
[2022-04-28 08:15] VITALS: PULSE 77
[2022-04-28] MEDS: baclofen 10 mg Tablet PO (08:15)
[2022-04-28] MEDS: digoxin 125 mcg Tablet 62.5 MCG PO (08:15)
[2022-04-28] MEDS: aspirin 81 mg EC Tablet PO (08:15)
[2022-04-28] MEDS: clopidogrel 75 mg Tablet PO (08:15)
[2022-04-28] MEDS: FUROsemide 40 mg Tablet PO (08:16)
[2022-04-28] MEDS: pantoprazole DR 40 mg Tablet PO (08:16)
[2022-04-28] MEDS: metoprolol tartrate 25 mg Tablet PO (08:16)
--- NOTE | 2022-04-28 09:51 | PM.SDS ---
Short Stay Summary Providers Date of Admit/Discharge: 04/29/22 Attending Provider: Ludy Thomas MD Primary Care Provider: Colton Denson Chief Complaint: I25.10 HPI History of Present Illness Waleska Celis is a 71 year old female with h/o CAD s/p LAD and RCA stents. She was admitted with worsening SOB and chest pains. Given prior moderate LCx lesion decision was made to proceed with [facility]. Review of Systems Const: Denies: fever(s) or chills Card: Reports: chest pain, edema, dyspnea on exertion and orthopnea Resp: Denies: dyspnea or productive cough GI: Reports: abdominal pain; Denies: nausea, vomiting, hematemesis or hematochezia : Denies: difficulty voiding Musc: Reports: joint pain; Denies: joint swelling or limited range of motion Skin/Breast: Denies: changes in skin color or dry skin Neuro: Denies: numbness in extremities or weakness in extremities Psych: Denies: anxiety Tye/Lymph: Denies: easy bruising or easy bleeding Home Meds/Allergies Home Medications and Allergies Home Medications Medication Instructions Recorded Confirmed Type baclofen 10 mg tablet 10 mg PO DAILY spasm 03/10/21 04/26/22 History pantoprazole 40 mg tablet,delayed 40 mg PO DAILY 03/10/21 04/26/22 History release prednisolone acetate 1 % eye 2 drp ophthalmic (eye) BID 10/04/21 04/26/22 History drops,suspension fluticasone propionate 50 1 spray intranasal DAILY PRN 04/11/22 04/26/22 History mcg/actuation nasal Allergy Symptoms spray,suspension metformin 500 mg tablet 1,000 mg PO BID 04/11/22 04/27/22 History pravastatin 10 mg tablet 10 mg PO DAILY 04/26/22 04/27/22 History Allergies Allergy/AdvReac Type Severity Reaction Status Date / Time cephalexin Allergy RASH Verified 04/27/22 07:19 naproxen [From Naprosyn] Allergy ITCHING Verified 04/27/22 07:19 SHELL FISH Allergy Severe ALGY-Anaphy Uncoded 04/27/22 07:19 laxis PFSH Acute PFSH: Medical History Anemia Atrial fibrillation CAD (coronary artery disease) Carpal tunnel syndrome, bilateral upper limbs Cervical disc disorder with myelopathy of mid-cervical region CHF (congestive heart failure) Coronary artery disease Diabetes History of breast cancer left, removed cancer Morbid (severe) obesity due to excess calories Palpitations Shortness of breath Unspecified atrial flutter not anticoagulated due to drop in hemoglobin Surgical History History of bowel resection History of hysterectomy Family History Father Diabetes Hypertension Brother Hypertension Sister Hypertension Social History Smoking and tobacco status: never smoked Second hand smoke exposure: Yes Alcohol intake: never Caregiver/support person: Yes Lives independently: Yes Household members: spouse Housing: House Marital status: service: No Current occupational status: unemployed Current occupation: previously employeed with Independent living until carpal tunnel relief History of recent travel: No Vitals/I&O/Wt Last Vital Signs Temp 97.9 F 04/27/22 07:43 Pulse 77 04/28/22 08:15 Resp 19 H 04/27/22 20:49 BP 144/104 04/27/22 13:45 Pulse Ox 95 04/27/22 19:39 O2 Del Method 04/27/22 19:39 O2 Flow Rate 3 04/27/22 20:00 04/27/22 04/28/22 04/28/22 22:59 06:59 14:59 Intake Total 180 / 180 896.25 / 1076.25 500 / 500 Output Total 500 / 500 700 / 1200 Balance -320 / -320 196.25 / -123.75 500 / 500 Weight last 48 hrs Weight 208 lb Weight 195 lb Physical Exam Narrative: GENERAL: morbidly obese woman in no acute distress HEENT: Extraocular movement intact. No pallor or icterus. NECK: central trachea, No carotid bruit. CARDIOVASCULAR SYSTEM: S1-S2 regular. No murmur or gallops. RESPIRATORY SYSTEM: Chest clear to auscultation. No wheezes rhonchi or rubs heard. No use of accessory muscles. ABDOMEN: Soft, distended with fat . intermittent tenderness in left upper abdomen (per patient) Normal bowel sounds present. EXTREMITIES: No cyanosis. trace edema. No signs of chronic venous insufficiency. DRAW FRAME RUNNER: Patient is alert oriented ?3. No focal neurological deficits. Hospital Course Hospital Course LHC done via left femoral access. Patent LAD and RCA stents. 50% mid LCX lesion not significant by FFR. Her abdominal pain is being evaluated by PCP. Her echo was unchanged. After discussing her echo findings with the patient; she was advised to follow up with PCP. We will also refer her to pulmonary from office. Discharge Summary Lasix dose was increased to 40 mg am and 20 mg in afternoon, f/u BMP in 1 week. Her SOB is likely multifactorial from restriction from abdominal obesity, hiatal hernia and poorly controlled GERD. Last EGD few years back per patient. SSS Data Data Completed and Pending: Completed Studies During Hospitalization Category Date Time Status CV. echo wo/w con trast [id number] Routin e Ultrasound 04/27/22 17:31 Taken Pending at discharge Category Date Time Status [employer] request for service Routin e Exams 04/27/22 08:30 Taken Discharge Plan Discharge Patient Disposition: Home Prescriptions: Continued pantoprazole 40 mg tablet,delayed release (DR/EC) 40 mg PO DAILY baclofen 10 mg tablet 10 mg PO DAILY prednisolone acetate 1 % drops,suspension 2 drp ophthalmic (eye) BID fluticasone propionate 50 mcg/actuation spray,suspension 1 spray intranasal DAILY PRN (Reason: Allergy Symptoms) Rx Instructions: administer into each nostril metformin 500 mg tablet 1,000 mg PO BID clopidogrel 75 mg tablet 75 mg PO DAILY Qty: 90 4RF metoprolol tartrate 25 mg tablet 25 mg PO BID Qty: 180 3RF digoxin 125 mcg (0.125 mg) tablet 62.5 mcg PO DAILY Qty: 45 2RF aspirin [Adult Aspirin Regimen] 81 mg tablet,delayed release (DR/EC) 81 mg PO DAILY Qty: 90 3RF pravastatin 10 mg Tablet 10 mg PO DAILY Rx Instructions: patient reports she doesnt take it Changed furosemide 40 mg tablet See Rx Instructions .ROUTE .COMPLEX Qty: 135 2RF Rx Instructions: 40 mg orally ;Take 1 tab in morning and 1/2 tab in afternoon x 5 days and then decrease to lasix 40 mg daily Discontinued diphenhydramine HCl [Benadryl Allergy] 25 mg tablet 50 mg PO DIRECTED PRN (Reason: allergy symptoms) Qty: 2 0RF Rx Instructions: Take 50mg 1 hr prior to surgery prednisone 50 mg tablet 50 mg PO DIRECTED Qty: 3 0RF Rx Instructions: Take 50mg 13hrs, 7hrs, & 1 hr prior to surgery Discharge Orders: Discharge Order (Routine); Ordered 04/28/22 Ordered By: Ludy Thomas Referrals: Mike Montemayor FNP [Nurse Practitioner] - 7-10 days (MAY 19, 2022 AT TIME OF 12:45PM WILL SCHEDULE CARDIOLOGY DRMireya APPOINTMENT FOR FOLLOW UP AFTER SEEN BY MIKE MONTEMAYOR APN PLEASE GO TO [facility] TO HAVE LAB DRAWN NEXT MONDAY OR MONDAY FOR POST ANGIOGRAM LAB . ) Diet: Cardiac Activity: Increase activity as tolerated Patient Instructions: Heart Healthy Diet, Left Heart Catheterization (DC), Opioid Safety, Post Angiogram Home Care Instructions Activity Restrictions/Additional Instructions: Do not lift anything more than 5 lbs for 1 week. Keep the site dry and clean Take medications as prescribed and follow up as scheduled. No swimming or tub bathing for 1 week. May shower. Please have lab drawn next Monday or at [facility] admissons for check in for lab draw post angiogram . Resume Metformin 04/29/22. Take lasix 40 mg in morning and 20 mg in afternoon for 5 days and then decrease to lasix 40 mg daily. May use additional 1/2 tab in afternoon as needed for shortness of breath. Discharge Date/Time: 04/28/22 11:38 Attestations Medical Necessity Statement*: Stable to be discharged post [facility] Time Spent in Patient Care*: greater than 30 min Specific Discharge Activities: Specific discharge activities: educating patient, educating and/or supporting family/caregiver, documenting/other paperwork and evaluating patient/reviewing data Quality Metrics Clinical Quality Measures: [ No reported AMI, CVA or VTE this stay] Coding Level of Care Code Acute Boiler Water Tester for Tim De
[2022-04-28] MEDS: FUROsemide 20 mg Tablet PO (10:51)
--- NOTE | 2022-04-28 11:16 | PC.NURSE ---
All patient d/c instructions educated to patient, patient and reported understanding instructions, d/c form signed
== END 2022-04-28 11:38 | disposition home or self-care (01) ==
LOC: CCL 06:56 → ICU 04-28 01:13
PROVIDERS: Internal Medicine; PCP Family Medicine; Visit Provider Internal Medicine Cardiovascular Disease
DX: I25.10 Atherosclerotic heart disease of native coronary artery without angina pectoris (principal); I97.630 Postprocedural hematoma of a circulatory system organ or structure following a cardiac catheterization; Z95.5 Presence of coronary angioplasty implant and graft; E11.9 Type 2 diabetes mellitus without complications; Z79.84 Long term (current) use of oral hypoglycemic drugs; I48.91 Unspecified atrial fibrillation; E66.01 Morbid (severe) obesity due to excess calories; Z68.35 Body mass index [BMI] 35.0-35.9, adult; Z85.3 Personal history of malignant neoplasm of breast
CPT/HCPCS: 36415; 36416; 80048; 82962; 83735; 83880; 85347; 85730; 93454; 93571; 96361; 96365; 99152; 99153; C1769; C1887; C1894; C8929; J1644; J2250; J3010; J7030; Q0163; Q9956; Q9967

== ENCOUNTER → 2022-05-10 08:40 | Outpatient (BNVA) | payer MEDICARE, MEDICAID, SELFPAY | PROVIDERS: PCP Family Medicine; Visit Provider Internal Medicine Cardiovascular Disease | DX: I25.10 Atherosclerotic heart disease of native coronary artery without angina pectoris (principal); I48.19 Other persistent atrial fibrillation; I50.32 Chronic diastolic (congestive) heart failure; I50.9 Heart failure, unspecified | CPT/HCPCS: 80048 ==

== ENCOUNTER 2022-05-15 06:00 | Outpatient (RCR) | payer MEDICARE, MEDICAID, SELFPAY | END 2022-06-14 23:59 | disposition home or self-care (01) | LOC: GPT 06:00 | PROVIDERS: PCP Family Medicine; Visit Provider Orthopaedic Surgery | DX: M75.121 Complete rotator cuff tear or rupture of right shoulder, not specified as traumatic (principal); M19.011 Primary osteoarthritis, right shoulder | CPT/HCPCS: 97110; 97140; 97530 ==

== ENCOUNTER → 2022-05-19 12:30 | Outpatient (BNVA) | payer MEDICARE, MEDICAID, SELFPAY | PROVIDERS: PCP Family Medicine; Visit Provider Nurse Practitioner Family | DX: I25.10 Atherosclerotic heart disease of native coronary artery without angina pectoris (principal) | CPT/HCPCS: 99213 ==

== ENCOUNTER 2022-06-15 06:00 | Outpatient (RCR) | payer MEDICARE, MEDICAID, SELFPAY | END 2022-07-12 23:59 | disposition home or self-care (01) | LOC: GPT 06:00 | PROVIDERS: PCP Family Medicine; Visit Provider Orthopaedic Surgery | DX: M75.121 Complete rotator cuff tear or rupture of right shoulder, not specified as traumatic (principal); M19.011 Primary osteoarthritis, right shoulder | CPT/HCPCS: 97110; 97112; 97140; 97530 ==

== ENCOUNTER 2022-06-23 06:00 | Outpatient (CLI) | payer MEDICARE, MEDICAID, SELFPAY ==
--- NOTE | 2022-06-23 | MR_ITS ---
WS: [id number] MRI BRAIN WITHOUT CONTRAST HISTORY: HEADACHES COMPARISON: None available. TECHNIQUE: Diffusion imaging, multiplanar T1, T2 and FLAIR imaging obtained. No evidence for acute infarct or hemorrhage. Armenta-white matter differentiation is normal. No prior infarcts. There are a few scattered T2 and FLAIR signal hyperintensities predominantly in th e frontal lobes and around the occipital horns of the lateral ventricles. No significant volume loss. There is increased T2 signal and widening of the LEFT 7th and 8th cranial nerve complex. Ventricles and extra-axial spaces are normal. No inferior displacement of cerebellar tonsils. Empty sella turcica. Signal within the dorsum sellae follows CSF on all sequences. Dural venous sinuses and three affiliated of Montes demonstrate no abnormality on this unenhanced studies. Paranasal sinuses: Clear. Mastoid air cells: Normal. Calvarium and scalp: Intact. MR/MR head wo con* [id number] IMPRESSION: 1. No acute infarcts. 2. Increased T2 signal and widening along the LEFT 7th and 8th cranial nerve c omplex. Recommend follow-up MRI internal auditory canals with and without contr ast for further evaluation to exclude tumor. 3. Mild small vessel ischemic disease.
== END 2022-06-23 06:01 | disposition home or self-care (01) ==
PROVIDERS: PCP Family Medicine; Visit Provider Family Medicine
DX: R51.9 Headache, unspecified (principal)
CPT/HCPCS: 70551

== ENCOUNTER → 2022-06-27 14:56 | Outpatient (BNVA) | payer MEDICARE, MEDICAID, SELFPAY | PROVIDERS: PCP Family Medicine; Visit Provider Nurse Practitioner Family | DX: I25.10 Atherosclerotic heart disease of native coronary artery without angina pectoris (principal) | CPT/HCPCS: 85025; 99214 ==

== ENCOUNTER 2022-06-30 06:03 | Outpatient (CLI) | payer MEDICARE, MEDICAID, SELFPAY ==
[2022-06-30 07:31] LABS: Chol HDL Ratio 3.85 mg/dL (0.0-4.40); Cholesterol 154 mg/dL (0-200); HDL Cholesterol 40 mg/dL (60-100); LDL Cholesterol Calculated 93 mg/dL (50-129); LDL HDL Ratio 2.33 RATIO (0.00-3.22); Triglycerides 104 mg/dL (0-150)
== END 2022-06-30 06:04 | disposition home or self-care (01) ==
LOC: LAB 06:06
PROVIDERS: PCP Family Medicine; Visit Provider Nurse Practitioner Family
DX: I25.10 Atherosclerotic heart disease of native coronary artery without angina pectoris (principal)
CPT/HCPCS: 80061

== ENCOUNTER 2022-07-13 06:00 | Outpatient (RCR) | payer MEDICARE, MEDICAID, SELFPAY | END 2022-08-08 23:59 | disposition home or self-care (01) | LOC: GPT 06:00 | PROVIDERS: PCP Family Medicine; Visit Provider Orthopaedic Surgery | DX: M75.121 Complete rotator cuff tear or rupture of right shoulder, not specified as traumatic (principal); M19.011 Primary osteoarthritis, right shoulder; M25.511 Pain in right shoulder | CPT/HCPCS: 97110 ==

== ENCOUNTER → 2022-07-28 15:48 | Outpatient (BNVA) | payer MEDICARE, MEDICAID, SELFPAY | PROVIDERS: PCP Family Medicine; Visit Provider Internal Medicine Pulmonary Disease | DX: R06.02 Shortness of breath (principal) | CPT/HCPCS: 36415; 71046; 82785; 86003; 99204 ==

== ENCOUNTER 2022-08-04 10:30 | Outpatient (CLI) | payer MEDICARE, MEDICAID, SELFPAY ==
--- NOTE | 2022-08-04 10:41 | XR_ITS ---
WS: [id number] EXAMINATION: XR lumbar spine 2-3V* [id number] L-SPINE : 3 views REASON FOR EXAM: SACROILITIS COMPARISON: 08/04/2021 ORDER DATE: 08/04/2022 10:45 AM FINDINGS: No compression fractures or subluxation is seen. There is multilevel disc degeneration with osteoarthritic spurring L2-L5.The transverse processes and SI joints are normal. Incidental atherosclerotic aortic calcification noted XR/XR lumbar spine 2-3V* [id number] IMPRESSION: 1. Multilevel degenerative disc narrowing. 2. Osteoarthritis L2-L5.
--- NOTE | 2022-08-04 12:33 | MR_ITS ---
WS: [id number] MRI HEAD WITH CONTRAST WITH ATTENTION TO THE INTERNAL AUDITORY CANALS TECHNIQUE: Sagittal T1, T2 axial, T2 axial flair, axial susceptibility weighted imaging, axial diffus ion weighted images, and coronal T2 images were obtained. Pre and post T1 axial and post T1 coronal i mages. ADC and FSPGR images. Post gadolinium images with attention to the internal auditory canals. A xial fiesta imaging. CLINICAL INFORMATION: HEADACHE/SYNCOPE COMPARISON: MRI June 23, 2022 FINDINGS: No evidence of restricted diffusion to suggest acute ischemia. Ventricular system and basal cisterns are patent. Mild small vessel changes. Mild to moderate parenchymal volume loss. Normal posterior fos sa. Normal vascular flow voids at the skull base. No extra axial fluid collections. No evidence of ma ss or mass effect. Paranasal sinuses and mastoid air cells are well aerated. Normal posterior nasopha rynx. Normal parapharyngeal fat. No hemosiderin on the susceptibly weighted images. Proximal 7th and 8th cranial nerves have a normal appearance today. No evidence of enhancing IAC or CP angle mass. Trigeminal nerve root entry zones ar e normal in appearance. No abnormal intracranial enhancement. Normal visualized dural venous sinuses. Incidental partially em pty sella. Normal optic chiasm. Normal cavernous sinuses and Meckel's cave. MR/MR iac's wo/w con* [id number] IMPRESSION: 1. No evidence of enhancing IAC or CP angle mass. 7th and 8th cranial nerves h ave a more normal appearance today. 2. Normal trigeminal nerve root entry zones. 3. Mild small vessel changes with moderate parenchymal volume loss. 4. Paranasal sinuses and mastoid air cells well aerated. 5. No other suspicious findings.
[2022-08-04] MEDS: gadobenate dimeglumine 20 mL vial IV (14:23)
== END 2022-08-04 10:31 | disposition home or self-care (01) ==
LOC: RAD 10:32
PROVIDERS: PCP Family Medicine; Visit Provider Family Medicine
DX: R51.9 Headache, unspecified (principal); R55 Syncope and collapse
CPT/HCPCS: 70551; 70553; 72100; A9577

== ENCOUNTER 2022-08-23 05:58 | Outpatient (CLI) | payer MEDICARE, MEDICAID, SELFPAY ==
[2022-08-23 07:32] VITALS: BP 131/90; BP 134/90
== END 2022-08-23 05:59 | disposition home or self-care (01) ==
LOC: RT 06:00
PROVIDERS: PCP Family Medicine; Visit Provider Internal Medicine Pulmonary Disease
DX: R06.02 Shortness of breath (principal)
CPT/HCPCS: 94010; 94618; 94726; 94729

== ENCOUNTER → 2022-09-20 13:33 | Outpatient (BNVA) | payer MEDICARE, MEDICAID, SELFPAY | PROVIDERS: PCP Family Medicine; Visit Provider Surgery | DX: R10.9 Unspecified abdominal pain (principal); K21.9 Gastro-esophageal reflux disease without esophagitis | CPT/HCPCS: 99203 ==

== ENCOUNTER 2022-10-06 06:58 | Outpatient (CLI) | payer MEDICARE, MEDICAID, SELFPAY ==
--- NOTE | 2022-10-06 07:17 | CTR_ITS ---
PROCEDURE INFORMATION: Exam: CT Abdomen Without Contrast Exam date and time: 10/06/2022 8:02 AM Age: 71 years old Clinical indication: Abdominal pain; Patient HX: Epigastric pain, worse when eating/drinking. Constant nausea, upper abd bloating, burps alot and smells like rotten eggs (per pt); Additional info: Chronic intermittent abdominal pain/gerd TECHNIQUE: Imaging protocol: Computed tomography of the abdomen without contrast. Radiation optimization: All CT scans at this facility use at least one of these dose optimization techniques: automated exposure control; mA and/or kV adjustment per patient size (includes targeted exams where dose is matched to clinical indication); or iterative reconstruction. REPORTING DATA: Count of CT and Cardiac NM exams in prior 12 months: This patient has received 0 known CTs and 0 known cardiac nuclear medicine studies in the 12 months prior to the current study. COMPARISON: CT abdomen pelvis con [id number] 02/28/2019 1:13 PM RADIATION DOSE METRICS: Total DLP (mGy-cm): 461.96 FINDINGS: Lungs: Right lower lobe atelectasis. Coronary arteries: Coronary artery atherosclerotic calcifications. Diaphragm: Large hiatal hernia. Liver: Normal. No mass. Gallbladder and bile ducts: Normal. No calcified stones. No ductal dilation. Pancreas: Normal. No ductal dilation. Spleen: Normal. No splenomegaly. Adrenal glands: Normal. No mass. Kidneys and ureters: Normal. No hydronephrosis. Stomach and bowel: [id number]-ufjvletu constipation. Intraperitoneal space: Unremarkable. No free air. No significant fluid collection. Vasculature: Unremarkable. No abdominal aortic aneurysm. Lymph nodes: Unremarkable. No enlarged lymph nodes. Bones/joints: Unremarkable. No acute fracture. No dislocation. Soft tissues: Small umbilical hernia containing omentum without bowel. Mild anasarca suspected. CT/CT abdomen wo con [id number] IMPRESSION: 1. Negative for acute inflammatory process in the abdomen. 2. Right lower lobe atelectasis. 3. Coronary artery atherosclerotic calcifications. 4. Large hiatal hernia. 5. Pwtf-so-omnevhvl constipation. 6. Small umbilical hernia containing omentum without bowel. 7. Mild anasarca suspected.
[2022-10-06] MEDS: iohexol 350 mg/mL 500 mL Btl (per mL) PO (10:51)
== END 2022-10-06 06:59 | disposition home or self-care (01) ==
PROVIDERS: PCP Family Medicine; Visit Provider Family Medicine
DX: K21.9 Gastro-esophageal reflux disease without esophagitis (principal)
CPT/HCPCS: 74150; Q9967

== ENCOUNTER 2022-10-26 05:35 | Day surgery (SDC) | payer MEDICARE, MEDICAID, SELFPAY ==
[2022-10-24 09:21] VITALS: BMI 41.8
[2022-10-26 06:01] VITALS: BP 112/77; PULSE 76; RESP 16; TEMP 36.1; O2SAT 96
[2022-10-26] MEDS: sodium chloride 0.9% 1,000 ML 30 ML IV (06:13)
[2022-10-26 06:17] LABS: Glucose Point of Care 105 mg/dL (70-110)
--- NOTE | 2022-10-26 07:03 | ANES.PREANE2 ---
Pre-Anesthetic Assessment Height/Weight: Height 1.4 m Weight 81.647 kg Temp Pulse Resp BP Pulse Ox O2 Del Method 97.0 F L 76 16 112/77 96 Room Air 10/26/22 06:01 10/26/22 06:01 10/26/22 06:01 10/26/22 06:01 10/26/22 06:01 10/26/22 06:01 Operation Date: 10/26/22 07:30 Proposed Procedures p [id number] egd [id number] colon Z12.11 K21.9 R10.9(Not Applicable) - Aleksandr Cuello DO s Colonoscopy(Not Applicable) - Aleksandr Cuello DO Was Beta Vladimir taken within 24 hours: Yes Last intake: Intake Last Liquid Date 10/25/22 Last Liquid Time 21:00 Last Solid Date 10/24/22 Last Solid Time 16:00 Social No alcohol and No tobacco Exam alert, oriented x 3, clear to auscultation bilaterally and regular rate & rhythm Airway Submandibular: within normal limits Cervical ROM: within normal limits Mallampati: Class II Dentition: full History/ROS No significant history except as noted Pulmonary Shortness of Breath inhaler usage. SOB with stomach bloating CV/HEM Atrial Fibrillation, Coronary Artery Disease, Congestive Heart Failure, Hypertension and Myocardial Infarction saw cardiology in June. off plavix 2 months None reported Hepatic None reported GI Gastroesophageal Reflux Disease taking ozempic Metabolic Diabetes Mellitus, Hyperlipidemia and Morbid Obesity Musc/skel Lower Back Pain cervical stenosis Anesthetic Plan ASA status: 3 Anesthesia: Anesthesia Evaluation and MAC Risk of > 500 ml blood loss (7ml/kg in children): Yes, adequate IV access and fluids planned Medications/Allergies Home Medications Medication Instructions Recorded Confirmed Last Taken Type pantoprazole 40 mg tablet,delayed 40 mg PO DAILY 03/10/21 10/26/22 10/25/22 History release metoprolol tartrate 25 mg tablet 25 mg PO BID #180 tabs 12/16/21 10/26/22 10/26/22 Rx aspirin 81 mg tablet,delayed 81 mg PO DAILY #90 tabs 04/01/22 10/26/22 10/22/22 Rx release (Adult Aspirin Regimen) fluticasone propionate 50 1 spray intranasal DAILY PRN 04/11/22 10/26/22 04/27/22 06:00 History mcg/actuation nasal Allergy Symptoms spray,suspension digoxin 125 mcg (0.125 mg) tablet 62.5 mcg PO DAILY #45 tabs 05/23/22 10/26/22 10/26/22 Rx albuterol sulfate 90 mcg/actuation 1 inh inhalation QID PRN shortness 07/28/22 10/26/22 10/19/22 Rx aerosol inhaler (Ventolin HFA) of breath or wheezing #8.5 grams budesonide-formoterol HFA 80 2 puff inhalation BID #10.2 grams 08/01/22 10/26/22 10/19/22 Rx mcg-4.5 mcg/actuation aerosol inhaler (Symbicort) semaglutide 0.25 mg or 0.5 mg (2 5 mg SUBCUT .x1 a week 09/20/22 10/26/22 10/23/22 History mg/3 mL) subcutaneous pen injector (Ozempic) furosemide 40 mg tablet 40 mg PO DAILY PRN Edema 10/24/22 10/26/22 10/20/22 History ondansetron 8 mg disintegrating 8 mg PO Q8H PRN nausea and 10/25/22 10/26/22 10/25/22 Rx tablet vomiting #20 tabs Allergies Allergy/AdvReac Type Severity Reaction Status Date / Time cephalexin Allergy RASH Verified 10/26/22 05:58 naproxen [From Naprosyn] Allergy ITCHING Verified 10/26/22 05:58 SHELL FISH Allergy Severe ALGY-Anaphy Uncoded 10/26/22 05:58 laxis Current Medications Generic Name Dose Route Start Last Admin Trade Name Freq PRN Reason Stop Dose Admin Sodium Chloride 1,000 mls @ 30 mls/hr 10/26/22 05:45 10/26/22 06:13 Sodium Chloride 0.9% IV 10/27/22 05:44 30 mls/hr .Q24H DENISSE Administration PFSH Anesthesia Medical History Alpha galactosidase deficiency Anemia Atrial fibrillation CAD (coronary artery disease) Carpal tunnel syndrome, bilateral Carpal tunnel syndrome, bilateral upper limbs Cervical disc disorder with myelopathy of mid-cervical region CHF (congestive heart failure) Coronary artery disease Diabetes History of breast cancer left, removed cancer Morbid (severe) obesity due to excess calories Palpitations Positive cardiac stress test Unspecified atrial flutter not anticoagulated due to drop in hemoglobin Surgical History H/O heart artery stent History of bowel resection History of esophagogastroduodenoscopy (EGD) History of hysterectomy Hx of colonoscopy with polypectomy 3 yrs ago Family History Father Diabetes Hypertension Brother Hypertension Sister Hypertension Social History Smoking and tobacco status: never smoked Second hand smoke exposure: Yes Alcohol intake: never Substance/Drug Use: never Caregiver/support person: Yes Lives independently: Yes Household members: spouse Housing: House Marital status: service: No Current occupational status: unemployed Current occupation: previously employeed with [employer] until carpal tunnel relief Data Anesthesia Cardiac Studies: Echocardiogram 04/27/22 Echocardiogram Ultrasound 12/25/19 Sestamibi Stress Test (Cardiology) 10/22/20
--- NOTE | 2022-10-26 07:44 | PM.HP ---
Providers/Chief Complaint Primary Care Provider: Colton Denson Chief Complaint: Z12.11, K21.9, R10.9 History of Present Illness Waleska Celis is a 71 year old female here for EGD and colonoscopy Medications/Allergies Home Medications Medication Instructions Recorded Confirmed Last Taken Type pantoprazole 40 mg tablet,delayed 40 mg PO DAILY 03/10/21 10/26/22 10/25/22 History release metoprolol tartrate 25 mg tablet 25 mg PO BID #180 tabs 12/16/21 10/26/22 10/26/22 Rx aspirin 81 mg tablet,delayed 81 mg PO DAILY #90 tabs 04/01/22 10/26/22 10/22/22 Rx release (Adult Aspirin Regimen) fluticasone propionate 50 1 spray intranasal DAILY PRN 04/11/22 10/26/22 04/27/22 06:00 History mcg/actuation nasal Allergy Symptoms spray,suspension digoxin 125 mcg (0.125 mg) tablet 62.5 mcg PO DAILY #45 tabs 05/23/22 10/26/22 10/26/22 Rx albuterol sulfate 90 mcg/actuation 1 inh inhalation QID PRN shortness 07/28/22 10/26/22 10/19/22 Rx aerosol inhaler (Ventolin HFA) of breath or wheezing #8.5 grams budesonide-formoterol HFA 80 2 puff inhalation BID #10.2 grams 08/01/22 10/26/22 10/19/22 Rx mcg-4.5 mcg/actuation aerosol inhaler (Symbicort) semaglutide 0.25 mg or 0.5 mg (2 5 mg SUBCUT .x1 a week 09/20/22 10/26/22 10/23/22 History mg/3 mL) subcutaneous pen injector (Ozempic) furosemide 40 mg tablet 40 mg PO DAILY PRN Edema 10/24/22 10/26/22 10/20/22 History ondansetron 8 mg disintegrating 8 mg PO Q8H PRN nausea and 10/25/22 10/26/22 10/25/22 Rx tablet vomiting #20 tabs Allergies Allergy/AdvReac Type Severity Reaction Status Date / Time cephalexin Allergy RASH Verified 10/26/22 05:58 naproxen [From Naprosyn] Allergy ITCHING Verified 10/26/22 05:58 SHELL FISH Allergy Severe ALGY-Anaphy Uncoded 10/26/22 05:58 laxis PFSH Acute PFSH: Medical History Alpha galactosidase deficiency Anemia Atrial fibrillation CAD (coronary artery disease) Carpal tunnel syndrome, bilateral Carpal tunnel syndrome, bilateral upper limbs Cervical disc disorder with myelopathy of mid-cervical region CHF (congestive heart failure) Coronary artery disease Diabetes History of breast cancer left, removed cancer Morbid (severe) obesity due to excess calories Palpitations Positive cardiac stress test Unspecified atrial flutter not anticoagulated due to drop in hemoglobin Surgical History H/O heart artery stent History of bowel resection History of esophagogastroduodenoscopy (EGD) History of hysterectomy Hx of colonoscopy with polypectomy 3 yrs ago Family History Father Diabetes Hypertension Brother Hypertension Sister Hypertension Social History Smoking and tobacco status: never smoked Second hand smoke exposure: Yes Alcohol intake: never Substance/Drug Use: never Caregiver/support person: Yes Lives independently: Yes Household members: spouse Housing: House Marital status: service: No Current occupational status: unemployed Current occupation: previously employeed with [employer] until carpal tunnel relief Vitals/I&O/Wt Last Vital Signs Temp 97.0 F L 10/26/22 06:01 Pulse 76 10/26/22 06:01 Resp 16 10/26/22 06:01 BP 112/77 10/26/22 06:01 Pulse Ox 96 10/26/22 06:01 O2 Del Method Room Air 10/26/22 06:01 Weight last 48 hrs Weight 180 lb A&P Assessment and plan (1) Colon cancer screening: (2) GERD (gastroesophageal reflux disease): Plan EGD and colonoscopy Attestations Medical Necessity Statement*: Home Coding Level of Care Code Acute Code for Chg Fwd Diagnoses Colon cancer screening Z12.11 GERD (gastroesophageal reflux disease) K21.9
[2022-10-26 08:54] VITALS: BP 134/72; PULSE 83; RESP 16; TEMP 36.1; O2SAT 96
[2022-10-26 09:26] VITALS: BP 145/82; PULSE 80; RESP 18; O2SAT 97
--- NOTE | 2022-10-26 14:05 | ANE.PACU2 ---
Inpatient post-anesthesia follow up: Airway intact: Yes Vital signs: Temperature 97.0 F Pulse Rate 80 Respiratory Rate 18 Blood Pressure 145/82 Pulse Oximetry 97 Oxygen Delivery Me thod Room Air Oxygen Flow Rate Fraction of Inspir ed Oxygen Hydration adequate: Yes Nausea and vomiting: No Pain level: 1 Mental status: Baseline
== END 2022-10-26 09:50 | disposition home or self-care (01) ==
PROVIDERS: PCP Family Medicine; Visit Provider Surgery
PROC: 0DJ08ZZ Inspection of Upper Intestinal Tract, Via Natural or Artificial Opening Endoscopic (ICD-10-PCS; CPT 43235; principal; 2022-10-26 07:30)
PROC: 0DJD8ZZ Inspection of Lower Intestinal Tract, Via Natural or Artificial Opening Endoscopic (ICD-10-PCS; CPT 45378; 2022-10-26 07:30)
DX: Z12.11 Encounter for screening for malignant neoplasm of colon (principal); D12.5 Benign neoplasm of sigmoid colon; K31.89 Other diseases of stomach and duodenum; K21.9 Gastro-esophageal reflux disease without esophagitis; Z86.010 Personal history of colon polyps; E11.9 Type 2 diabetes mellitus without complications; I11.0 Hypertensive heart disease with heart failure; I50.9 Heart failure, unspecified; I25.10 Atherosclerotic heart disease of native coronary artery without angina pectoris; I25.2 Old myocardial infarction; I48.91 Unspecified atrial fibrillation; I48.92 Unspecified atrial flutter; E78.5 Hyperlipidemia, unspecified; E66.01 Morbid (severe) obesity due to excess calories; Z68.41 Body mass index [BMI] 40.0-44.9, adult; Z79.82 Long term (current) use of aspirin; Z88.1 Allergy status to other antibiotic agents
CPT/HCPCS: 36416; 43239; 76937; 82962; 88305; G0121; J2704; J7030

== ENCOUNTER → 2022-11-09 13:44 | Outpatient (BNVA) | payer MEDICARE, MEDICAID, SELFPAY | PROVIDERS: PCP Family Medicine; Visit Provider Surgery | DX: K31.819 Angiodysplasia of stomach and duodenum without bleeding (principal); K63.5 Polyp of colon | CPT/HCPCS: 99213 ==

== ENCOUNTER → 2022-11-25 08:44 | Outpatient (BNVA) | payer MEDICARE, MEDICAID, SELFPAY | PROVIDERS: PCP Family Medicine; Visit Provider Internal Medicine Cardiovascular Disease | DX: I48.19 Other persistent atrial fibrillation (principal); I25.10 Atherosclerotic heart disease of native coronary artery without angina pectoris; I50.32 Chronic diastolic (congestive) heart failure; E11.9 Type 2 diabetes mellitus without complications; E66.01 Morbid (severe) obesity due to excess calories; Z68.41 Body mass index [BMI] 40.0-44.9, adult; Z79.84 Long term (current) use of oral hypoglycemic drugs | CPT/HCPCS: 99214 ==

== ENCOUNTER → 2023-01-04 05:21 | Day surgery (SDC) | payer MEDICARE, MEDICAID, SELFPAY ==
[2023-01-02 15:28] VITALS: BMI 40.4
[2023-01-04 06:03] VITALS: BP 136/89; PULSE 84; RESP 20; TEMP 36.1; O2SAT 99
[2023-01-04] MEDS: sodium chloride 0.9% 1,000 ML 30 ML IV (06:06)
--- NOTE | 2023-01-04 07:06 | ANES.PREANE2 ---
Pre-Anesthetic Assessment Height/Weight: Height 1.4 m Weight 78.925 kg Temp Pulse Resp BP Pulse Ox 97.0 F L 84 20 H 136/89 99 01/04/23 06:03 01/04/23 06:03 01/04/23 06:03 01/04/23 06:03 01/04/23 06:03 Operation Date: 01/04/23 07:00 Proposed Procedures p Colonoscopy 23674,K63.5(Not Applicable) - Aleksandr Cuello, DO Was Beta Vladimir taken within 24 hours: Yes Was Clonidine taken within 24 hours: N/A Last intake: Intake Last Liquid Date 01/03/23 Last Liquid Time 22:00 Last Solid Date 01/02/23 Exam alert and oriented x 3 Airway Submandibular: within normal limits Cervical ROM: within normal limits Mallampati: Class I Dentition: false (no teeth) History/ROS No significant history except as noted Pulmonary None reported CV/HEM Coronary Artery Disease (history of 4 stents; seen yardage control clerk in last few months with clear report), Congestive Heart Failure (on 'water pill' swells easily) and Hypertension None reported Hepatic None reported GI Gastroesophageal Reflux Disease and Hiatal Hernia Metabolic Diabetes Mellitus Musc/skel Lower Back Pain Neuropsych None reported Anesthetic Plan ASA status: 3 Anesthesia: MAC Risk of > 500 ml blood loss (7ml/kg in children): No Medications/Allergies Home Medications Medication Instructions Recorded Confirmed Last Taken Type aspirin 81 mg tablet,delayed 81 mg PO DAILY #90 tabs 04/01/22 01/02/23 12/31/22 Rx release (Adult Aspirin Regimen) fluticasone propionate 50 1 spray intranasal DAILY PRN 04/11/22 01/02/23 04/27/22 06:00 History mcg/actuation nasal Allergy Symptoms spray,suspension albuterol sulfate 90 mcg/actuation 1 inh inhalation QID PRN shortness 07/28/22 01/04/23 10/19/22 Rx aerosol inhaler (Ventolin HFA) of breath or wheezing #8.5 grams budesonide-formoterol HFA 80 2 puff inhalation BID #10.2 grams 08/01/22 01/04/23 10/19/22 Rx mcg-4.5 mcg/actuation aerosol inhaler (Symbicort) semaglutide 0.25 mg or 0.5 mg (2 5 mg SUBCUT .x1 a week 09/20/22 01/02/23 12/28/22 History mg/3 mL) subcutaneous pen injector (Ozempic) furosemide 40 mg tablet 40 mg PO DAILY PRN Edema 10/24/22 01/04/23 01/02/23 History digoxin 125 mcg (0.125 mg) tablet 62.5 mcg PO DAILY #45 tabs 11/24/22 01/02/23 01/03/23 Rx docusate sodium 100 mg capsule 100 mg PO DAILY PRN Constipation 11/25/22 01/04/23 01/03/23 History (Colace) ondansetron 8 mg disintegrating 8 mg PO Q8H PRN nausea and 11/25/22 01/04/23 01/03/23 Rx tablet vomiting #20 tabs metoprolol tartrate 25 mg tablet 25 mg PO BID #180 tabs 12/22/22 01/02/23 01/03/23 Rx montelukast 10 mg tablet 10 mg PO DAILY PRN Allergy Symptoms 01/02/23 01/04/23 Unknown History (Singulair) pantoprazole 40 mg tablet,delayed 40 mg PO DAILY 01/02/23 01/02/23 01/03/23 History release Allergies Allergy/AdvReac Type Severity Reaction Status Date / Time cephalexin Allergy RASH Verified 01/04/23 06:00 naproxen [From Naprosyn] Allergy ITCHING Verified 01/04/23 06:00 SHELL FISH Allergy Severe ALGY-Anaphy Uncoded 01/04/23 06:00 laxis Current Medications Generic Name Dose Route Start Last Admin Trade Name Freq PRN Reason Stop Dose Admin Sodium Chloride 1,000 mls @ 30 mls/hr 01/04/23 05:45 01/04/23 06:06 Sodium Chloride 0.9% IV 01/05/23 05:44 30 mls/hr .Q24H DENISSE Administration PFSH Anesthesia Medical History Alpha galactosidase deficiency Anemia Atrial fibrillation CAD (coronary artery disease) Carpal tunnel syndrome, bilateral Carpal tunnel syndrome, bilateral upper limbs Cervical disc disorder with myelopathy of mid-cervical region CHF (congestive heart failure) Coronary artery disease Diabetes History of breast cancer left, removed cancer Morbid (severe) obesity due to excess calories Palpitations Positive cardiac stress test Unspecified atrial flutter not anticoagulated due to drop in hemoglobin Surgical History H/O heart artery stent History of bowel resection History of esophagogastroduodenoscopy (EGD) History of hysterectomy Hx of colonoscopy with polypectomy 3 yrs ago Family History Father Diabetes Hypertension Brother Hypertension Sister Hypertension Social History Smoking and tobacco status: never smoked Second hand smoke exposure: Yes Alcohol intake: never Substance/Drug Use: never Caregiver/support person: Yes Lives independently: Yes Household members: spouse Housing: House Marital status: service: No Current occupational status: unemployed Current occupation: previously employeed with [employer] until carpal tunnel relief Data Anesthesia Cardiac Studies: Echocardiogram 04/27/22 Echocardiogram Ultrasound 12/25/19 Sestamibi Stress Test (Cardiology) 10/22/20
--- NOTE | 2023-01-04 08:11 | PC.NURSE ---
pt family states she does not need to be stuck anymore for IV. requesting to go home. dr. starr in to speak with pt. pt to get a follow up appointment for consult for port placement. office will call pt.
--- NOTE | 2023-01-04 13:28 | ANE.PACU2 ---
Inpatient post-anesthesia follow up: Airway intact: Yes Vital signs: Temperature 97.0 F Pulse Rate 84 Respiratory Rate 20 Blood Pressure 136/89 Pulse Oximetry 99 Oxygen Delivery Me thod Oxygen Flow Rate Fraction of Inspir ed Oxygen Hydration adequate: Yes Nausea and vomiting: No Pain level: 2 Mental status: Baseline
== END ==
PROVIDERS: PCP Family Medicine; Visit Provider Surgery
PROC: 0DJD8ZZ Inspection of Lower Intestinal Tract, Via Natural or Artificial Opening Endoscopic (ICD-10-PCS; CPT 45378; principal; 2023-01-04 07:00)
DX: K63.5 Polyp of colon (principal); Z53.9 Procedure and treatment not carried out, unspecified reason
CPT/HCPCS: 76937; J7030

== ENCOUNTER → 2023-02-24 10:46 | Outpatient (BNVA) | payer MEDICARE, MEDICAID, SELFPAY | PROVIDERS: PCP Family Medicine; Visit Provider Family Medicine | DX: M25.551 Pain in right hip (principal) | CPT/HCPCS: 73502 ==

== ENCOUNTER 2023-03-01 07:43 | Outpatient (CLI) | payer MEDICARE, MEDICAID, SELFPAY ==
[2023-03-01 08:29] LABS: Basophils % 0.3 %; Eosinophils # 0.1 10^3/uL (0.0-0.8); Eosinophils % 0.5 %; Hematocrit 46.9 % (36-47); Lymphocytes # 1.9 10^3/uL (0.8-4.8); Lymphocytes % 16.4 %; Mean Corpuscular HGB Conc 32.8 g/dL (30-55); Mean Corpuscular Hemoglobin 29.8 pg (27-33); Mean Corpuscular Volume 90.9 fl (85-98); Mean Platelet Volume 11.6 fL (7.4-10.4); Monocytes # 0.7 10^3/uL (0.2-0.9); Monocytes % 5.9 %; Neutrophils # 8.83 10^3/uL (1.8-7.7); Neutrophils % 75.9 %; Nucleated Red Blood Cells % 0 %; Platelet Count 220 10^3/cmm (157-399); Red Blood Count 5.16 10^6/uL (3.85-5.65); Red Cell Distribution Width 14.6 % (12.1-15.1); White Blood Count 11.65 10^3/uL (3.29-11.43)
[2023-03-01 08:32] LABS: Erythrocyte Sedimentation Rate 17 mm/hr (0-15)
[2023-03-01 08:41] LABS: Estmated Average Glucose 126
[2023-03-01 08:58] LABS: Alanine Aminotransferase 24 U/L (0-33); Albumin Level 4.1 g/dL (3.5-5.2); Alkaline Phosphatase 121 U/L (35-105); Aspartate Amino Transferase 19 U/L (0-32); Blood Urea Nitrogen 23 mg/dL (8-23); Calcium 9.6 mg/dL (8.5-10.5); Carbon Dioxide 29 mmol/L (22-29); Chloride 98 mmol/L (98-107); Chol HDL Ratio 3.09 mg/dL (0.0-4.40); Cholesterol 142 mg/dL (0-200); Globulin 2.5 g/dL (1.3-4.6); Glomerular Filtration Rate 61.9 mL/min (90-130); Glucose 107 mg/dL (65-115); HDL Cholesterol 46 mg/dL (60-100); LDL Cholesterol Calculated 74 mg/dL (50-129); LDL HDL Ratio 1.61 RATIO (0.00-3.22); Osmolality Calculated 294 mOsm/kg (285-295); Sodium 140 mmol/L (136-145); Total Bilirubin 0.8 mg/dL (0.15-1.2); Total Protein 6.6 g/dL (6.6-8.7); Triglycerides 112 mg/dL (0-150)
[2023-03-01 09:00] LABS: Anion Gap 16.8 (5-19); Potassium 3.8 mmol/L (3.5-5.1)
[2023-03-01 09:04] LABS: Free T4 Free Thyroxine 1.36 ng/dL (0.82-1.77); Testosterone Total 2.5 ng/dL (2.9-40.8)
[2023-03-01 10:07] LABS: 25 Hydroxy Vitamin D 31 ng/mL (30-100); Estradiol 10.8 pg/mL; Follicle Stimulating Hormone 40.1 mIU/mL; Luteinizing Hormone 23.8 mIU/mL (0.5-41.7); Vitamin B12 721 pg/mL (232-1245)
[2023-03-02 13:10] LABS: C-Peptide 9.12 ng/mL (0.80-3.85); CENTROMERE B ANTIBODY <1.0 NEG AI (<1.0 NEG); JO-1 ANTIBODY <1.0 NEG AI (<1.0 NEG); RNP ANTIBODY <1.0 NEG AI (<1.0 NEG); SCL-70 ANTIBODY <1.0 NEG AI (<1.0 NEG); SJOGREN'S ANTIBODY (SS-A) <1.0 NEG AI (<1.0 NEG); SM ANTIBODY <1.0 NEG AI (<1.0 NEG); SS-B <1.0 NEG AI (<1.0 NEG)
[2023-03-02 15:16] LABS: ANA SCREEN, IFA NEGATIVE (NEGATIVE)
[2023-03-03 11:30] LABS: COMPLEMENT COMPONENT C3C 161 mg/dL (83-193); COMPLEMENT COMPONENT C4C 27 mg/dL (15-57)
[2023-03-03 12:36] LABS: COMPLEMENT, TOTAL (CH50) >60 U/mL (31-60)
[2023-03-06 13:35] LABS: THYROID PEROXIDASE ANTIBODIES <1 IU/mL (<9)
[2023-03-07 20:59] LABS: Estrone 18 pg/mL
[2023-03-10 15:40] LABS: DNA AB (DS) CRITHIDIA,IFA NEGATIVE (NEGATIVE)
[2023-03-10 15:49] LABS: TSH Receptor Binding Antibody <1.00 IU/L (< OR = 2.00)
== END 2023-03-01 07:44 | disposition home or self-care (01) ==
PROVIDERS: PCP Family Medicine; Visit Provider Family Medicine
DX: E11.9 Type 2 diabetes mellitus without complications (principal); G47.30 Sleep apnea, unspecified; I10 Essential (primary) hypertension; R53.83 Other fatigue; Z79.899 Other long term (current) drug therapy
CPT/HCPCS: 36415; 80053; 80061; 82306; 82607; 82670; 82679; 83001; 83002; 83036; 83516; 84144; 84403; 84439; 84681; 85025; 85651; 86140; 86160; 86162; 86235; 86255; 86376

== ENCOUNTER → 2023-06-09 07:50 | Outpatient (BNVA) | payer MEDICARE, MEDICAID, SELFPAY | PROVIDERS: PCP Family Medicine; Visit Provider Internal Medicine Cardiovascular Disease | DX: I48.19 Other persistent atrial fibrillation (principal); I25.10 Atherosclerotic heart disease of native coronary artery without angina pectoris; I50.32 Chronic diastolic (congestive) heart failure; E66.01 Morbid (severe) obesity due to excess calories; Z68.39 Body mass index [BMI] 39.0-39.9, adult; E11.9 Type 2 diabetes mellitus without complications; Z95.5 Presence of coronary angioplasty implant and graft; Z79.84 Long term (current) use of oral hypoglycemic drugs | CPT/HCPCS: 99214 ==

== ENCOUNTER → 2023-09-07 10:27 | Outpatient (BNVA) | payer MEDICARE, MEDICAID, SELFPAY | PROVIDERS: PCP Family Medicine; Visit Provider Internal Medicine Cardiovascular Disease | DX: I48.19 Other persistent atrial fibrillation (principal); I25.10 Atherosclerotic heart disease of native coronary artery without angina pectoris; I50.32 Chronic diastolic (congestive) heart failure; Z95.5 Presence of coronary angioplasty implant and graft; E11.9 Type 2 diabetes mellitus without complications; E66.01 Morbid (severe) obesity due to excess calories; K31.819 Angiodysplasia of stomach and duodenum without bleeding; K63.5 Polyp of colon; R10.9 Unspecified abdominal pain; D50.0 Iron deficiency anemia secondary to blood loss (chronic); Z68.39 Body mass index [BMI] 39.0-39.9, adult | CPT/HCPCS: 99214 ==

== ENCOUNTER 2023-10-24 08:14 | Outpatient (CLI) | payer MEDICARE, MEDICAID, SELFPAY ==
[2023-10-24 09:28] LABS: Basophils % 0.3 %; Eosinophils # 0.1 10^3/uL (0.0-0.8); Eosinophils % 0.8 %; Lymphocytes # 1.8 10^3/uL (0.8-4.8); Lymphocytes % 20.4 %; Mean Corpuscular HGB Conc 33.4 g/dL (30-55); Mean Corpuscular Hemoglobin 31.4 pg (27-33); Mean Platelet Volume 11.7 fL (7.4-10.4); Monocytes # 0.6 10^3/uL (0.2-0.9); Monocytes % 6.7 %; Neutrophils # 6.27 10^3/uL (1.8-7.7); Neutrophils % 70.8 %; Nucleated Red Blood Cells % 0 %; Platelet Count 173 10^3/cmm (157-399); Red Blood Count 4.68 10^6/uL (3.85-5.65); Red Cell Distribution Width 13.8 % (12.1-15.1); White Blood Count 8.86 10^3/uL (3.29-11.43)
[2023-10-24 09:47] LABS: Alanine Aminotransferase 28 U/L (0-33); Albumin Level 3.9 g/dL (3.5-5.2); Alkaline Phosphatase 89 U/L (35-105); Anion Gap 13.4 (5-19); Aspartate Amino Transferase 16 U/L (0-32); Blood Urea Nitrogen 25 mg/dL (8-23); Calcium 9.1 mg/dL (8.5-10.5); Carbon Dioxide 28 mmol/L (22-29); Chloride 101 mmol/L (98-107); Globulin 2.5 g/dL (1.3-4.6); Glomerular Filtration Rate 70.9 mL/min (90-130); Glucose 110 mg/dL (65-115); NT Pro B Type Natriuretic Pept 276 pg/mL (0-125); Osmolality Calculated 293 mOsm/kg (285-295); Potassium 3.4 mmol/L (3.5-5.1); Sodium 139 mmol/L (136-145); Total Bilirubin 0.7 mg/dL (0.15-1.2); Total Protein 6.4 g/dL (6.6-8.7)
[2023-10-24 09:54] LABS: Chol HDL Ratio 3.41 mg/dL (0.0-4.40); Cholesterol 150 mg/dL (0-200); HDL Cholesterol 44 mg/dL (60-100); LDL Cholesterol Calculated 84 mg/dL (50-129); LDL HDL Ratio 1.91 RATIO (0.00-3.22); Triglycerides 112 mg/dL (0-150)
[2023-10-24 10:43] LABS: Thyroid Stimulating Hormone 2.29 uIU/mL (0.27-4.20)
[2023-10-25 15:20] LABS: C-Peptide 8.55 ng/mL (0.80-3.85)
== END 2023-10-24 08:15 | disposition home or self-care (01) ==
LOC: LAB 08:18
PROVIDERS: PCP Family Medicine; Visit Provider Family Medicine
DX: E11.9 Type 2 diabetes mellitus without complications (principal); R53.83 Other fatigue; I10 Essential (primary) hypertension; E78.00 Pure hypercholesterolemia, unspecified
CPT/HCPCS: 36415; 80053; 80061; 83880; 84443; 84681; 85025

== ENCOUNTER 2023-10-27 05:52 | Outpatient (CLI) | payer MEDICARE, MEDICAID, SELFPAY ==
--- NOTE | 2023-10-27 06:15 | USCV_ITS ---
Waleska Toledo Age: 72 Gender: F : 1950 Exam Date: 10/27/2023 06:17 Ordering Phys: Colton Denson MD Technologist: MAKI Exam Location: [facility] – [place] Indication: heart failure BP: 138 / 90 HR: 82 Rhythm: Sinus Technical Quality: Adequate MEASUREMENTS (Male / Female) Normal Values 2D ECHO LV Diastolic Diameter PLAX 3.4 cm 4.2 - 5.9 / 3.9 - 5.3 cm IVS Diastolic Thickness 0.8 cm 0.6 - 1.0 / 0.6 - 0.9 cm IVS Systolic Thickness 1.1 cm LVPW Diastolic Thickness 1.0 cm 0.6 - 1.0 / 0.6 - 0.9 cm LVPW Systolic Thickness 1.6 cm LV Ejection Fraction 2D Teich 53.3 % LV Ejection Fraction MOD 2C 52.0 % LV Ejection Fraction 2C AL 52.9 % LA Diameter 3.5 cm RA Systolic Volume 4C AL 18.9 ml RA Systolic Volume 4C MOD 19.4 ml LA Sys Volume AL 22.7 cm cubed LA Sys Volume Index AL 12.9 cm cubed/m squared Aorta at Sinotubular Diameter 2.0 cm IVC Diameter 1.5 cm M-MODE LA Ao Ratio MM 1.3 AV Cusp Separation MM 1.1 cm DOPPLER AV Peak Velocity 154.0 cm/s LVOT Peak Velocity 76.0 cm/s MV Peak Velocity 101.0 cm/s MV Area PHT 7.7 cm squared Mitral E to A Ratio 0.7 TV Peak Velocity 162.0 cm/s TR Peak Velocity 203.0 cm/s TR Peak Gradient 16.5 mmHg TR Mean Velocity 150.0 cm/s TR Mean Gradient 10.8 mmHg TR Velocity Time Integral 41.0 cm PV Peak Velocity 98.3 cm/s RV Ejection Time 0.3 s FINDINGS Left Ventricle Left ventricle is normal size. LV systolic function is normal with EF of 55-60%. No regional wall motion abnormalities. Echogenic structure seen in left ventricle. This is likely prominent papillary muscle. Grade 1 diastolic dysfunction. Right Ventricle Normal in size and function Right Atrium Normal in size Left Atrium Normal in size Mitral Valve Mitral valve is thickened. Mild mitral regurgitation. Aortic Valve Aortic valve is thickened. Mild aortic regurgitation. No significant stenosis. Tricuspid Valve Insufficient TR jet to calculate RVSP. Pulmonic Valve Normal Pericardium Normal Aorta Normal in size IVC Appears to be normal CONCLUSIONS LV systolic function is normal with EF of 55 to 60%. Grade 1 diastolic dysfunction. Echogenic structure seen in left ventricle. This is likely prominent papillary muscle. Unchanged from prior echocardiogram Mild mitral regurgitation Mild aortic regurgitation Compared to prior echocardiogram from 2021, patient has mild aortic regurgitation now. Mykel Branham MD (Electronically Signed) Final Date: 29 October 2023 23:30 S
== END 2023-10-27 05:53 | disposition home or self-care (01) ==
LOC: RAD 05:52
PROVIDERS: PCP Family Medicine; Visit Provider Family Medicine
DX: I50.30 Unspecified diastolic (congestive) heart failure (principal)
CPT/HCPCS: 93306

== ENCOUNTER 2023-11-08 07:49 | Outpatient (CLI) | payer MEDICARE, MEDICAID, SELFPAY ==
[2023-11-08 08:30] LABS: Basophils # 0.1 10^3/uL (0.0-0.1); Basophils % 0.6 %; Eosinophils # 0.1 10^3/uL (0.0-0.8); Eosinophils % 0.6 %; Hematocrit 44.4 % (36-47); Lymphocytes # 1.8 10^3/uL (0.8-4.8); Lymphocytes % 21.7 %; Mean Corpuscular HGB Conc 33.3 g/dL (30-55); Mean Corpuscular Hemoglobin 31.4 pg (27-33); Mean Corpuscular Volume 94.1 fl (85-98); Mean Platelet Volume 11.2 fL (7.4-10.4); Monocytes # 0.6 10^3/uL (0.2-0.9); Neutrophils # 5.56 10^3/uL (1.8-7.7); Neutrophils % 68.6 %; Nucleated Red Blood Cells % 0 %; Platelet Count 186 10^3/cmm (157-399); Red Blood Count 4.72 10^6/uL (3.85-5.65); Red Cell Distribution Width 14.2 % (12.1-15.1); White Blood Count 8.11 10^3/uL (3.29-11.43)
[2023-11-08 08:48] LABS: Estmated Average Glucose 126
[2023-11-08 09:14] LABS: 25 Hydroxy Vitamin D 26 ng/mL (30-100); Alanine Aminotransferase 28 U/L (0-33); Albumin Level 3.8 g/dL (3.5-5.2); Alkaline Phosphatase 89 U/L (35-105); Anion Gap 13.8 (5-19); Aspartate Amino Transferase 18 U/L (0-32); Blood Urea Nitrogen 19 mg/dL (8-23); Carbon Dioxide 24 mmol/L (22-29); Chloride 105 mmol/L (98-107); Chol HDL Ratio 2.96 mg/dL (0.0-4.40); Cholesterol 142 mg/dL (0-200); Globulin 2.7 g/dL (1.3-4.6); Glucose 103 mg/dL (65-115); HDL Cholesterol 48 mg/dL (60-100); LDL Cholesterol Calculated 65 mg/dL (50-129); LDL HDL Ratio 1.35 RATIO (0.00-3.22); NT Pro B Type Natriuretic Pept 333 pg/mL (0-125); Osmolality Calculated 291 mOsm/kg (285-295); Potassium 3.8 mmol/L (3.5-5.1); Sodium 139 mmol/L (136-145); Thyroid Stimulating Hormone 2.77 uIU/mL (0.27-4.20); Total Bilirubin 0.8 mg/dL (0.15-1.2); Total Protein 6.5 g/dL (6.6-8.7); Triglycerides 146 mg/dL (0-150); Vitamin B12 880 pg/mL (232-1245)
[2023-11-08 09:40] LABS: Carcinoembryonic Antigen 1.7 ng/mL (0.0-4.7); Free T4 Free Thyroxine 1.42 ng/dL (0.82-1.77)
== END 2023-11-08 07:50 | disposition home or self-care (01) ==
LOC: LAB 07:51
PROVIDERS: PCP Family Medicine; Visit Provider Family Medicine
DX: N18.9 Chronic kidney disease, unspecified (principal); E11.9 Type 2 diabetes mellitus without complications; E55.9 Vitamin D deficiency, unspecified; E78.00 Pure hypercholesterolemia, unspecified; Z85.3 Personal history of malignant neoplasm of breast; D51.9 Vitamin B12 deficiency anemia, unspecified; I50.9 Heart failure, unspecified
CPT/HCPCS: 80053; 80061; 82306; 82378; 82607; 83036; 83880; 84439; 84443; 85025

== ENCOUNTER 2023-11-22 07:28 | Outpatient (CLI) | payer MEDICARE, MEDICAID, SELFPAY ==
[2023-11-23 15:40] LABS: Lyme AB Screen <0.90 index
== END 2023-11-22 07:29 | disposition home or self-care (01) ==
PROVIDERS: PCP Family Medicine; Visit Provider Family Medicine
DX: Z11.9 Encounter for screening for infectious and parasitic diseases, unspecified (principal)
CPT/HCPCS: 36415; 86618; 86666; 86757

== ENCOUNTER 2023-12-04 06:10 | Outpatient (CLI) | payer MEDICARE, MEDICAID, SELFPAY ==
[2023-12-04 06:56] LABS: Blood Urea Nitrogen 14 mg/dL (8-23); Calcium 9.2 mg/dL (8.5-10.5); Carbon Dioxide 25 mmol/L (22-29); Chloride 102 mmol/L (98-107); Glucose 119 mg/dL (65-115); Osmolality Calculated 290 mOsm/kg (285-295); Sodium 139 mmol/L (136-145)
[2023-12-04 06:57] LABS: Anion Gap 15.9 (5-19); Potassium 3.9 mmol/L (3.5-5.1)
== END 2023-12-04 06:11 | disposition home or self-care (01) ==
PROVIDERS: PCP Family Medicine
DX: I50.9 Heart failure, unspecified (principal); I25.10 Atherosclerotic heart disease of native coronary artery without angina pectoris; I48.91 Unspecified atrial fibrillation; E11.9 Type 2 diabetes mellitus without complications; E66.01 Morbid (severe) obesity due to excess calories
CPT/HCPCS: 80048

== ENCOUNTER 2024-01-01 07:28 | Outpatient (CLI) | payer MEDICARE, MEDICAID, SELFPAY ==
[2024-01-01 08:09] LABS: Digoxin 0.6 ng/mL (0.6-1.2)
== END 2024-01-01 07:29 | disposition home or self-care (01) ==
PROVIDERS: PCP Family Medicine; Visit Provider Family Medicine
DX: I50.9 Heart failure, unspecified (principal)
CPT/HCPCS: 36415; 80162

== ENCOUNTER 2024-04-16 11:14 | Outpatient (CLI) | payer MEDICARE, MEDICAID, SELFPAY ==
--- NOTE | 2024-04-16 11:22 | MM_ITS ---
WS: [id number] DIAGNOSTIC BILATERAL DIGITAL BREAST TOMOSYNTHESIS MAMMOGRAPHY WITH CAD HISTORY: HXOF BREAST CA COMPARISON: 10/12/2021 TECHNIQUE: Bilateral craniocaudad, mediolateral oblique, and mediolateral views are submitted with to mosynthesis and SM. Computer aided detection utilized. Breast composition: There are scattered areas of fibroglandular density. Volume loss throughout the LEFT breast. Mild trabecular thickening and skin thickening is posttreatme nt. Vascular calcifications in each breast. Dystrophic calcifications scattered throughout the LEFT b reast. MM/MM diag BI tomosynthesis [id number] IMPRESSION: BI-RADS: 2 - Benign. FOLLOW UP: 1 Year Follow-up
== END 2024-04-16 11:15 | disposition home or self-care (01) ==
LOC: RAD 11:15
PROVIDERS: PCP Family Medicine; Visit Provider Family Medicine
DX: Z85.3 Personal history of malignant neoplasm of breast (principal); R92.323 Mammographic fibroglandular density, bilateral breasts; R92.1 Mammographic calcification found on diagnostic imaging of breast
CPT/HCPCS: 77062; G0279

== ENCOUNTER 2024-04-22 07:35 | Outpatient (CLI) | payer MEDICARE, MEDICAID, SELFPAY ==
[2024-04-22 08:58] LABS: Anion Gap 17.4 (5-19); Blood Urea Nitrogen 20 mg/dL (8-23); Calcium 9.7 mg/dL (8.5-10.5); Carbon Dioxide 25 mmol/L (22-29); Chloride 101 mmol/L (98-107); Glucose 105 mg/dL (65-115); Osmolality Calculated 293 mOsm/kg (285-295); Potassium 3.4 mmol/L (3.5-5.1); Sodium 140 mmol/L (136-145)
[2024-04-24 16:40] LABS: Cow's Milk (F2) IgE 0.25 kU/L; Cow's Milk Classification 0/1; Shrimp (F24) IgE 0.77 kU/L; Shrimp Class 2
[2024-04-24 16:40] LABS: Immunoglobulin E 937 kU/L (<OR=114)
== END 2024-04-22 07:36 | disposition home or self-care (01) ==
LOC: LAB 07:39
PROVIDERS: PCP Family Medicine; Visit Provider Nurse Practitioner Family
DX: I50.30 Unspecified diastolic (congestive) heart failure (principal); Z91.018 Allergy to other foods; I25.10 Atherosclerotic heart disease of native coronary artery without angina pectoris; I48.91 Unspecified atrial fibrillation; E11.9 Type 2 diabetes mellitus without complications; K58.1 Irritable bowel syndrome with constipation; R10.12 Left upper quadrant pain; R11.2 Nausea with vomiting, unspecified
CPT/HCPCS: 36415; 80048; 82785; 86003; 86008

== ENCOUNTER 2024-05-06 08:52 | Outpatient (CLI) | payer MEDICARE, MEDICAID, SELFPAY ==
--- NOTE | 2024-05-06 09:00 | XRR_ITS ---
PROCEDURE INFORMATION: Exam: XR Entire Spine Exam date and time: 05/06/2024 9:07 AM Age: 73 years old Clinical indication: Low back pain; Patient HX: Pain in the lower/mid back for the last few months. PT has fallen 3 times in the last week causing pain in bilateral hips; Additional info: Low back pain/dorsalgia TECHNIQUE: Imaging protocol: XR of the entire spine. Evaluation for scoliosis or surgical evaluation. Views: 2 or 3 views. COMPARISON: CR XR lumbar spine 2-3V* [id number] 08/04/2022 10:44 AM FINDINGS: Bones/joints: No appreciable fracture or malalignment in the thoracic and lumbar spine. Moderate multilevel degenerative change in the thoracic spine and in the lumbar spine. Soft tissues: No soft tissue abnormality. XR/XR scoliosis survey 2-3V [id number] IMPRESSION: No appreciable fracture or malalignment in the thoracic and lumbar spine.
--- NOTE | 2024-05-06 09:00 | XRR_ITS ---
PROCEDURE INFORMATION: Exam: XR Bilateral Hips Exam date and time: 05/06/2024 9:07 AM Age: 73 years old Clinical indication: Injury or trauma; Blunt trauma (contusions or hematomas); Injury details: Pain in the lower/mid back for the last few months. PT has fallen 3 times in the last week causing pain in bilateral hips. ; Additional info: Bilateral hip pain TECHNIQUE: Imaging protocol: Radiologic exam of the bilateral hips. Views: 2 views of hips with pelvis when performed. COMPARISON: CR XR hip RT 2-3V wo/w pel* [id number] 02/24/2023 11:10 AM FINDINGS: Bones/joints: No acute fracture or malalignment. Enthesophytes arising from the iliac crest and also overlying the left greater trochanter. Soft tissues: No acute soft tissue abnormality. XR/XR hip BI 3-4V wo/w pel [id number] IMPRESSION: No acute fracture or malalignment.
== END 2024-05-06 08:53 | disposition home or self-care (01) ==
LOC: RAD 08:57
PROVIDERS: PCP Family Medicine; Visit Provider Family Medicine
DX: M46.94 Unspecified inflammatory spondylopathy, thoracic region (principal); M76.21 Iliac crest spur, right hip; W19.XXXA Unspecified fall, initial encounter
CPT/HCPCS: 72082; 73522

== ENCOUNTER 2024-06-15 06:00 | Outpatient (RCR) | payer MEDICARE, MEDICAID, SELFPAY | END 2024-07-12 23:59 | disposition home or self-care (01) | LOC: GPT 06:00 | PROVIDERS: Visit Provider Nurse Practitioner Family | DX: G56.03 Carpal tunnel syndrome, bilateral upper limbs (principal); M62.81 Muscle weakness (generalized) | CPT/HCPCS: 97110; 97140; 97162; 97530 ==

== ENCOUNTER → 2024-07-10 13:39 | Outpatient (BNVA) | payer MEDICARE, MEDICAID, SELFPAY | PROVIDERS: PCP Nurse Practitioner Family; Visit Provider Nurse Practitioner Family | DX: M25.762 Osteophyte, left knee (principal); M61.461 Other calcification of muscle, right lower leg | CPT/HCPCS: 73560 ==

== ENCOUNTER 2024-07-13 06:30 | Outpatient (RCR) | payer MEDICARE, MEDICAID, SELFPAY | END 2024-08-12 23:59 | disposition home or self-care (01) | LOC: GPT 06:30 | PROVIDERS: PCP Family Medicine; Visit Provider Nurse Practitioner Family | DX: G56.03 Carpal tunnel syndrome, bilateral upper limbs (principal); M62.81 Muscle weakness (generalized) | CPT/HCPCS: 97110; 97112; 97140 ==

== ENCOUNTER → 2024-07-22 08:51 | Outpatient (BNVA) | payer MEDICARE, MEDICAID, SELFPAY | PROVIDERS: PCP Nurse Practitioner Family; Visit Provider Family Medicine | DX: E11.9 Type 2 diabetes mellitus without complications (principal); R79.89 Other specified abnormal findings of blood chemistry; I50.32 Chronic diastolic (congestive) heart failure; D50.0 Iron deficiency anemia secondary to blood loss (chronic); L29.89 Other pruritus; I48.19 Other persistent atrial fibrillation; E55.9 Vitamin D deficiency, unspecified | CPT/HCPCS: 80053; 80061; 82306; 82607; 82728; 82746; 83036; 83550; 83735; 84443; 85025; 85651; 86140 ==

== ENCOUNTER → 2024-08-07 09:14 | Outpatient (BNVA) | payer MEDICARE, MEDICAID, SELFPAY | PROVIDERS: PCP Family Medicine; Visit Provider Nurse Practitioner | DX: G56.03 Carpal tunnel syndrome, bilateral upper limbs (principal) | CPT/HCPCS: 36415; 73090; 80053; 85025 ==

== ENCOUNTER 2024-08-07 12:05 | Outpatient (CLI) | payer MEDICARE, MEDICAID, SELFPAY | END 2024-08-07 12:06 | disposition home or self-care (01) | LOC: SPT 12:06 | PROVIDERS: PCP Family Medicine; Visit Provider Nurse Practitioner | DX: Z46.89 Encounter for fitting and adjustment of other specified devices (principal); G56.03 Carpal tunnel syndrome, bilateral upper limbs | CPT/HCPCS: 97760; 99204; L3908 ==

== ENCOUNTER → 2024-08-15 11:14 | Outpatient (BNVA) | payer MEDICARE, MEDICAID, SELFPAY | PROVIDERS: PCP Family Medicine; Visit Provider Nurse Practitioner | DX: M79.631 Pain in right forearm (principal); G56.03 Carpal tunnel syndrome, bilateral upper limbs | CPT/HCPCS: 99213 ==

== ENCOUNTER 2024-08-22 07:27 | Outpatient (CLI) | payer MEDICARE, MEDICAID, SELFPAY ==
[2024-08-22 09:32] LABS: Iron 78 ug/dL (37-145)
[2024-08-22 09:44] LABS: Erythrocyte Sedimentation Rate 17 mm/hr (0-15)
[2024-08-22 09:45] LABS: C Reactive Protein 9.7 mg/L (0.0-4.9)
== END 2024-08-22 07:28 | disposition home or self-care (01) ==
LOC: LAB 07:29
PROVIDERS: PCP Family Medicine; Visit Provider Nurse Practitioner
DX: M79.631 Pain in right forearm (principal); M06.4 Inflammatory polyarthropathy; R79.89 Other specified abnormal findings of blood chemistry; I50.32 Chronic diastolic (congestive) heart failure; E11.9 Type 2 diabetes mellitus without complications; D50.0 Iron deficiency anemia secondary to blood loss (chronic); L29.89 Other pruritus; I48.19 Other persistent atrial fibrillation
CPT/HCPCS: 36415; 72050; 83540; 85651; 86140; 99203

== ENCOUNTER 2024-08-22 13:03 | Outpatient (CLI) | payer MEDICARE, MEDICAID, SELFPAY ==
--- NOTE | 2024-08-22 13:00 | USCV_ITS ---
Tre DEENA Age: 73 Gender: F : 1950 Exam Date: 08/22/2024 13:18 Ordering Phys: Remington Paiz DO Technologist: R Exam Location: [facility] [place] Indication: swelling. cephalics not viusalized 3 yechs attempted HISTORY: swelling PROCEDURES: Venous duplex imaging was performed in bilateral upper extremities. FINDINGS: No evidence of deep vein thrombosis or superficial thrombophlebitis in the right upper extremity. No evidence of deep vein thrombosis or superficial thrombophlebitis in the left upper extremity. cephalic veins not visualized CONCLUSIONS No evidence of thrombus of the right upper extremity veins. No evidence of thrombus of the left upper extremity veins. Luca Medina MD (Electronically Signed) Final Date: 22 August 2024 15:48 S
== END 2024-08-22 13:04 | disposition home or self-care (01) ==
PROVIDERS: PCP Family Medicine; Visit Provider Orthopaedic Surgery
DX: M79.89 Other specified soft tissue disorders (principal)
CPT/HCPCS: 93970

== ENCOUNTER → 2024-08-26 14:00 | Outpatient (BNVA) | payer MEDICARE, MEDICAID, SELFPAY | PROVIDERS: PCP Family Medicine; Visit Provider Family Medicine | DX: M79.631 Pain in right forearm (principal); M25.561 Pain in right knee; M25.562 Pain in left knee; R70.0 Elevated erythrocyte sedimentation rate; R79.82 Elevated C-reactive protein (CRP); I48.4 Atypical atrial flutter | CPT/HCPCS: 80162; 86200; 86225; 86235; 86431 ==

== ENCOUNTER → 2024-09-09 12:25 | Outpatient (BNVA) | payer MEDICARE, MEDICAID, SELFPAY | PROVIDERS: PCP Family Medicine; Visit Provider Nurse Practitioner | DX: L03.113 Cellulitis of right upper limb (principal); M79.631 Pain in right forearm; G56.03 Carpal tunnel syndrome, bilateral upper limbs | CPT/HCPCS: 36415; 86225; 86235; 99214 ==

== ENCOUNTER → 2024-09-11 11:42 | Outpatient (BNVA) | payer MEDICARE, MEDICAID, SELFPAY | PROVIDERS: PCP Family Medicine; Visit Provider Family Medicine | DX: R10.30 Lower abdominal pain, unspecified (principal); R35.0 Frequency of micturition | CPT/HCPCS: 81000 ==

== ENCOUNTER → 2024-09-23 09:33 | Outpatient (BNVA) | payer MEDICARE, MEDICAID, SELFPAY | PROVIDERS: PCP Family Medicine; Visit Provider Nurse Practitioner | DX: M79.631 Pain in right forearm (principal); G56.03 Carpal tunnel syndrome, bilateral upper limbs | CPT/HCPCS: 99213 ==

== ENCOUNTER → 2024-11-27 09:10 | Outpatient (BNVA) | payer MEDICARE, MEDICAID, SELFPAY | PROVIDERS: PCP Family Medicine; Visit Provider Family Medicine | DX: T78.1XXA Other adverse food reactions, not elsewhere classified, initial encounter (principal); E55.9 Vitamin D deficiency, unspecified; R11.2 Nausea with vomiting, unspecified; R19.7 Diarrhea, unspecified; R10.9 Unspecified abdominal pain; I48.19 Other persistent atrial fibrillation; R79.89 Other specified abnormal findings of blood chemistry | CPT/HCPCS: 80053; 82306; 82607; 84443; 85025; 86003; 86008; 86140 ==

== ENCOUNTER → 2024-12-23 13:45 | Outpatient (BNVA) | payer MEDICARE, MEDICAID, SELFPAY | PROVIDERS: PCP Family Medicine; Visit Provider Family Medicine | DX: E11.9 Type 2 diabetes mellitus without complications (principal) | CPT/HCPCS: 83036 ==